=== PATIENT | female | born 1970 | race Caucasian/White ===

== ENCOUNTER 2016-10-03 18:08 | Emergency (ER) | payer MEDICAID ==
[2016-10-03 18:22] VITALS: BP 124/61; PULSE 98; RESP 20; TEMP 98.6; O2SAT 98
--- NOTE | 2016-10-03 19:24 | ED PDOC ---
HPI: CCC, URI, Sore Throat Time Seen by Provider: 10/03/16 19:22 Chief Complaint (Nursing): Chest Pain Chief Complaint (Provider): sore thoart History Per: Patient History/Exam Limitations: no limitations Have you had recent travel within the past 21 days to any of the following countries: [place], [place], [place] or [place]?: No Associated Symptoms: Sore Throat. denies: Fever, Chills, Cough, Sputum Past Medical History Reviewed: Historical Data, Nursing Documentation, Vital Signs Vital Signs: Last Vital Signs Temp 98.6 F 10/03/16 18:19 Pulse 98 H 10/03/16 18:19 Resp 20 10/03/16 18:19 BP 124/61 10/03/16 18:19 Pulse Ox 98 10/03/16 18:19 - Medical History PMH: Anxiety, Diabetes, HIV Denies: Bipolar Disorder (denies), Chronic Kidney Disease - Surgical History Surgical History: (3) - Family History Family History: States: Unknown Family Hx - Home Medications Home Medications: Ambulatory Orders Medication Instructions Recorded Ibuprofen 600 mg PO Q6 PRN #16 tab 01/24/14 Ibuprofen [Motrin] 600 mg PO Q6 PRN #20 tab 01/24/14 diaZEpam [Valium] 5 mg PO BID PRN #10 tab 01/24/14 Albuterol HFA [Ventolin HFA 90 2 puff IH [id number] PRN #0 puff 04/29/14 mcg/actuation (8 g)] Azithromycin [Zithromax Z-Lior] 250 mg PO DAILY #6 tab 04/29/14 Codeine Phosphate/Promethazi 5 ml PO Q6 PRN #60 ml 04/29/14 [Promethazine with Codeine 10 mg/5 ml-6.25 mg/] Naproxen [Naprosyn] 500 mg PO Q12H #20 tab 12/30/15 traMADol [Ultram] 50 mg PO Q8 #10 tab 12/30/15 Ibuprofen [Motrin] 600 mg PO Q6 #20 tab 01/20/16 oxyCODONE/Acetaminophen [Percocet 1 ea PO Q6 PRN #5 tab 01/20/16 5/325 mg Tab] Azithromycin [Zithromax] 250 mg PO DAILY #6 tab 10/03/16 Pseudoephedrine [Sudafed Tab] 30 mg PO BID #10 tab 10/03/16 - Allergies Allergies/Adverse Reactions: Allergies Allergy/AdvReac Type Severity Reaction Status Date / Time No Known Allergies Allergy Verified 01/23/14 22:34 Review of Systems ROS Statement: Except As Marked, All Systems Reviewed And Found Negative ENT: Positive for: Throat Pain, Throat Swelling Respiratory: Negative for: Cough, SOB with Exertion, Pleuritic Pain, Sputum Physical Exam - Reviewed Nursing Documentation Reviewed: Yes Vital Signs Reviewed: Yes - Physical Exam Appears: Positive for: Well, Non-toxic, No Acute Distress Head Exam: Positive for: ATRAUMATIC, NORMAL INSPECTION, NORMOCEPHALIC Skin: Positive for: Normal Color, Warm, DRY Eye Exam: Positive for: EOMI, Normal appearance, PERRL ENT: Positive for: Tonsillar Exudate, Tonsillar Swelling Neck: Positive for: Normal, Painless ROM Cardiovascular/Chest: Positive for: Regular Rate, Rhythm Respiratory: Positive for: CNT, Normal Breath Sounds Neurologic/Psych: Positive for: Alert, Oriented - ECG O2 Sat by Pulse Oximetry: 98 Medical Decision Making Medical Decision Making: Pt is only requesting abx tx for sore throat. pt admits she si HIV (+) and has not been taking her medication x 3 months. Disposition - Clinical Impression Clinical Impression: Pharyngitis - Patient ED Disposition Is Patient to be Admitted: No Counseled Patient/Family Regarding: Studies Performed, Diagnosis, Need For Followup, Rx Given - Disposition Disposition: Routine/Home Disposition Time: 19:26 Condition: STABLE Prescriptions: Azithromycin [Zithromax] 250 mg PO DAILY #6 tab Pseudoephedrine [Sudafed Tab] 30 mg PO BID #10 tab Instructions: Pharyngitis (ED)
--- NOTE | 2016-10-06 09:33 | CARD ---
APPROVED REPORT EKG Measurement Heart [id number] <Conclusion> Normal sinus rhythm Normal ECG
== END 2016-10-03 19:32 | disposition home or self-care (01) ==
LOC: H.ER 18:08
DX: J02.9 Acute pharyngitis, unspecified (principal); E11.9 Type 2 diabetes mellitus without complications; F41.9 Anxiety disorder, unspecified; N18.9 Chronic kidney disease, unspecified

== ENCOUNTER 2016-10-10 10:59 | Emergency (ER) | payer MEDICAID ==
[2016-10-10 11:12] VITALS: BMI 30.7
[2016-10-10 11:13] VITALS: BP 99/68; PULSE 97; RESP 19; TEMP 99.6; O2SAT 99
--- NOTE | 2016-10-10 11:54 | ED PDOC ---
HPI: CCC, URI, Sore Throat Time Seen by Provider: 10/10/16 11:07 Chief Complaint (Nursing): ENT Problem Chief Complaint (Provider): ear ache History Per: Patient Additional Complaint(s): pt w/ hx uncontrolled HIV, DM c/o persistant L earache after URI sx and sore throat x one week. no fever, cp, sob, abd pain. no tinnitus, vertigo. Past Medical History Reviewed: Historical Data, Nursing Documentation, Vital Signs Vital Signs: Last Vital Signs Temp 99.6 F 10/10/16 11:12 Pulse 97 H 10/10/16 11:12 Resp 19 10/10/16 11:12 BP 99/68 L 10/10/16 11:12 Pulse Ox 99 10/10/16 11:12 - Medical History PMH: Anxiety, Diabetes (improved w/ lap band), HIV (unmedicated x 10 months) Denies: Bipolar Disorder (denies), Chronic Kidney Disease - Surgical History Surgical History: Cholecystectomy, (3) - Family History Family History: States: No Known Family Hx - Social History Current smoker - smoking cessation education provided: No Alcohol: None Drugs: Denies - Home Medications Home Medications: Ambulatory Orders Medication Instructions Recorded Amoxicillin/Clavulanate [Augmentin 1 tab PO BID #20 tab 10/10/16 875 MG-125 MG] Ibuprofen [Motrin Tab] 800 mg PO Q8 #20 tab 10/10/16 - Allergies Allergies/Adverse Reactions: Allergies Allergy/AdvReac Type Severity Reaction Status Date / Time No Known Allergies Allergy Verified 01/23/14 22:34 Review of Systems ROS Statement: Except As Marked, All Systems Reviewed And Found Negative ENT: Positive for: Ear Pain. Negative for: Ear Discharge Physical Exam - Reviewed Nursing Documentation Reviewed: Yes Vital Signs Reviewed: Yes - Physical Exam Appears: Positive for: Well, Non-toxic, No Acute Distress Skin: Positive for: Normal Color, Warm, DRY ENT: Positive for: TM Is/Are (L TM injected. R TM wnl. no mastoid tenderness. ). Negative for: Pharyngeal Erythema, Tonsillar Exudate, Tonsillar Swelling Neck: Positive for: Normal, Painless ROM Cardiovascular/Chest: Positive for: Regular Rate, Rhythm Respiratory: Positive for: CNT, Normal Breath Sounds Neurologic/Psych: Positive for: Alert, Oriented - ECG O2 Sat by Pulse Oximetry: 99 Medical Decision Making Medical Decision Making: no improvement with zpack given. will give augmentin and refer to clinic for recheck and further care. Disposition - Clinical Impression Clinical Impression: Otitis media - Patient ED Disposition Is Patient to be Admitted: No - Disposition Referrals: [facility] [Outside] Franck Cash MD [Staff Provider] - Disposition: Routine/Home Disposition Time: 11:57 Condition: GOOD Prescriptions: Amoxicillin/Clavulanate [Augmentin 875 MG-125 MG] 1 tab PO BID #20 tab Ibuprofen [Motrin Tab] 800 mg PO Q8 #20 tab Instructions: Otitis Media (ED) Forms: [employer] ED School/Work Excuse
== END 2016-10-10 12:19 | disposition home or self-care (01) ==
LOC: H.ER 10:59
DX: H66.92 Otitis media, unspecified, left ear (principal)

== ENCOUNTER 2016-10-18 11:01 | Emergency (ER) | payer MEDICAID ==
[2016-10-18 11:01] VITALS: BMI 30.7
--- NOTE | 2016-10-18 11:37 | ED PDOC ---
Lower Extremity Pain/Injury Time Seen by Provider: 10/18/16 11:26 Chief Complaint (Nursing): Lower Extremity Problem/Injury History Per: Patient Onset/Duration Of Symptoms: Days (2) Current Symptoms Are (Timing): Still Present Severity: Mild Pain Scale Rating Of: 2 Additional Complaint(s): Right knee pain since last night. No new trauam. Has pain intermittenly. Past Medical History Vital Signs: Last Vital Signs Temp 98.4 F 10/18/16 11:13 Pulse 93 H 10/18/16 11:13 Resp 18 10/18/16 11:13 BP 105/62 10/18/16 11:13 Pulse Ox 100 10/18/16 11:13 - Medical History PMH: Anxiety, Diabetes (improved w/ lap band), HIV (unmedicated x 10 months) Denies: Bipolar Disorder (denies), Chronic Kidney Disease - Surgical History Surgical History: Cholecystectomy, (3) - Family History Family History: States: Unknown Family Hx - Home Medications Home Medications: Ambulatory Orders Medication Instructions Recorded Amoxicillin/Clavulanate [Augmentin 1 tab PO BID #20 tab 10/10/16 875 MG-125 MG] Ibuprofen [Motrin Tab] 800 mg PO Q8 #20 tab 10/10/16 Naproxen [Naprosyn] 500 mg PO Q12H #20 tab 10/18/16 traMADol [Ultram] 50 mg PO Q8 #10 tab 10/18/16 - Allergies Allergies/Adverse Reactions: Allergies Allergy/AdvReac Type Severity Reaction Status Date / Time No Known Allergies Allergy Verified 01/23/14 22:34 Review of Systems Constitutional: Negative for: Fever Musculoskeletal: Positive for: Other (knee pain) Neurological: Negative for: Weakness, Numbness Physical Exam - Physical Exam Appears: Positive for: Non-toxic, No Acute Distress Skin: Positive for: Normal Color, Warm, DRY Extremity: Positive for: Normal ROM. Negative for: Tenderness, Deformity, Swelling - ECG O2 Sat by Pulse Oximetry: 100 Disposition - Clinical Impression Clinical Impression: Knee pain, chronic - Patient ED Disposition Is Patient to be Admitted: No Counseled Patient/Family Regarding: Diagnosis, Need For Followup, Rx Given - Disposition Referrals: [facility] [Outside] Disposition: Routine/Home Disposition Time: 11:37 Condition: FAIR Prescriptions: Naproxen [Naprosyn] 500 mg PO Q12H #20 tab traMADol [Ultram] 50 mg PO Q8 #10 tab Instructions: Knee Pain (ED)
[2016-10-18 11:57] VITALS: BP 128/78; PULSE 78; RESP 20; TEMP 97.6; O2SAT 98
== END 2016-10-18 12:58 | disposition home or self-care (01) ==
LOC: H.ER 11:01
DX: M25.561 Pain in right knee (principal)

== ENCOUNTER 2016-10-29 07:26 | Emergency (ER) | payer MEDICAID ==
[2016-10-29 07:35] VITALS: BMI 29.0
[2016-10-29 07:36] VITALS: TEMP 98.5
[2016-10-29] MEDS ORDERED: Oxycodone/Acetaminophen 5/325 mg Tab PO ONE (08:41)
[2016-10-29] MEDS ORDERED: Oxycodone/Acetaminophen 5/325 mg Tab ONE (08:55)
--- NOTE | 2016-10-29 09:11 | ED PDOC ---
Upper Extremity Pain/Injury Time Seen by Provider: 10/29/16 07:45 Chief Complaint (Nursing): Upper Extremity Problem/Injury Chief Complaint (Provider): Left arm pain History Per: Patient History/Exam Limitations: no limitations Onset/Duration Of Symptoms: Days (1) Current Symptoms Are (Timing): Still Present Quality: "Pain" Severity: Moderate Exacerbating Factor(s): Strenuous Use Of Affected Area Additional History Per: Patient Additional Complaint(s): The pt is a 46yo female, PMHx of HIV, DM, 3x C-sections, presents to ED for evaluation of left arm pain since this morning. Pt reports the pain is localized in her left forearm and denies any injury or trauma to the area. She reports decreased ROM due to pain; pt denies sleeping on her arm or any other injuries. States she took Tramadol for pain with no relief. Pt offers no additional medical complaints. Past Medical History Reviewed: Historical Data, Nursing Documentation, Vital Signs Vital Signs: Last Vital Signs Temp 98.5 F 10/29/16 07:35 Pulse 99 H 10/29/16 07:35 Resp 19 10/29/16 07:35 BP 115/66 10/29/16 07:35 Pulse Ox 98 10/29/16 07:35 - Medical History PMH: Anxiety, Diabetes (improved w/ lap band), HIV (unmedicated x 10 months) Denies: Bipolar Disorder (denies), Chronic Kidney Disease - Surgical History Surgical History: Cholecystectomy, (3) - Family History Family History: States: Unknown Family Hx - Home Medications Home Medications: Ambulatory Orders Medication Instructions Recorded Amoxicillin/Clavulanate [Augmentin 1 tab PO BID #20 tab 10/10/16 875 MG-125 MG] Ibuprofen [Motrin Tab] 800 mg PO Q8 #20 tab 10/10/16 Naproxen [Naprosyn] 500 mg PO Q12H #20 tab 10/18/16 traMADol [Ultram] 50 mg PO Q8 #10 tab 10/18/16 Ibuprofen [Motrin] 600 mg PO Q6H PRN #20 tab 10/29/16 - Allergies Allergies/Adverse Reactions: Allergies Allergy/AdvReac Type Severity Reaction Status Date / Time No Known Allergies Allergy Verified 10/29/16 07:56 Review of Systems ROS Statement: Except As Marked, All Systems Reviewed And Found Negative Musculoskeletal: Positive for: Arm Pain (left upper arm) Neurological: Negative for: Weakness, Numbness Physical Exam - Reviewed Nursing Documentation Reviewed: Yes Vital Signs Reviewed: Yes - Physical Exam Appears: Positive for: Well, Non-toxic, No Acute Distress Head Exam: Positive for: ATRAUMATIC, NORMAL INSPECTION, NORMOCEPHALIC Skin: Positive for: Normal Color, Warm, DRY Eye Exam: Positive for: Normal appearance Neck: Positive for: Normal, Supple Cardiovascular/Chest: Positive for: Regular Rate, Rhythm Respiratory: Positive for: Normal Breath Sounds. Negative for: Respiratory Distress Extremity: Positive for: Tenderness (pain and guarding of left upper arm), Capillary Refill (less than 2 sec. neurovascular intact). Negative for: Normal ROM (decreased ROM due to pain), Deformity, Swelling Neurologic/Psych: Positive for: Alert, Oriented - ECG O2 Sat by Pulse Oximetry: 98 (RA) Pulse Ox Interpretation: Normal Medical Decision Making Medical Decision Making: Time: 0815 Impression: Left upper arm pain, atraunmtic Plan: -- XR left humerus -- XR left shoulder -- Motrin 600 mg PO -- Percocet 1 tab PO -- Reassess Time: 1030 Left humerus xR impression: No acute fracture or bone destruction. Left shoulder XR impression: Soft tissue calcification lateral to the humeral head most compatible with calcific tendinitis. Pt to be given sling for left arm and d/c home. discussed results with pt an dneed for outpt orthopedics Scribe Attestation: Documented by Jaquelin Ely acting as a scribe for Rebeca Ravi MD. Provider Attestation: All medical record entries made by the Scribe were at my direction and personally dictated by me. I have reviewed the chart and agree that the record accurately reflects my personal performance of the history, physical exam, medical decision making, and the department course for this patient. I have also personally directed, reviewed, and agree with the discharge instructions and disposition. Disposition - Clinical Impression Clinical Impression: Calcific tendonitis - Patient ED Disposition Is Patient to be Admitted: No Counseled Patient/Family Regarding: Studies Performed, Diagnosis, Need For Followup - Disposition Referrals: Harsha Weldon MD [Medical Doctor] - Disposition: Routine/Home Disposition Time: 10:00 Condition: IMPROVED Additional Instructions: follow up with your orthopedics use sling and motrin for pain return to the ED with any worsneing or concerning symptoms Prescriptions: Ibuprofen [Motrin] 600 mg PO Q6H PRN #20 tab PRN Reason: Pain, Moderate (4-7) Instructions: Calcific Tendinitis (ED)
--- NOTE | 2016-10-29 10:13 | RAD ---
PROCEDURE: Radiographs of the left humerus. HISTORY: Pain COMPARISON: None. FINDINGS: BONES: Bone alignment and mineralization are normal. There is no acute fracture or bone destruction. SOFT TISSUES: Normal. OTHER FINDINGS: None. IMPRESSION: No acute fracture or bone destruction.
--- NOTE | 2016-10-29 10:15 | RAD ---
PROCEDURE: Radiographs of the Left Shoulder HISTORY: Atraumatic pain COMPARISON: No prior. FINDINGS: BONES: Bone alignment and mineralization are normal. There is no acute fracture or bone destruction. JOINTS: Mild degenerative osteoarthrosis in the acromioclavicular joint. The glenohumeral joint is normal. SOFT TISSUES: There are lobular calcifications lateral to the humeral head. OTHER FINDINGS: None. IMPRESSION: No acute fracture or dislocation. Soft tissue calcification lateral to the humeral head most compatible with calcific tendinitis.
[2016-10-29 11:07] VITALS: BP 116/72; PULSE 78; RESP 16
[2016-10-31 21:54] VITALS: O2SAT 98
== END 2016-10-29 11:07 | disposition home or self-care (01) ==
LOC: H.ER 07:26
DX: M75.32 Calcific tendinitis of left shoulder (principal); E11.22 Type 2 diabetes mellitus with diabetic chronic kidney disease; F41.9 Anxiety disorder, unspecified

== ENCOUNTER 2016-11-22 10:51 | Inpatient (IN) | payer MEDICAID ==
[2016-11-22 10:59] VITALS: BMI 28.2
[2016-11-22 12:15] LABS: HEMOGLOBIN 12.2 g/dL (12.0-16.0); MEAN CELL VOLUME 79.2 fl (81.0-99.0); MEAN CORPUSCULAR HGB CONC 32.7 g/dL (33.0-37.0); RBC 4.69 Mil/uL (3.80-5.20); RED CELL DISTRIBUTION WIDTH 16.1 % (11.5-14.5)
[2016-11-22 12:29] LABS: ALBUMIN 4.6 g/dL (3.5-5.0); ALT/SGPT 32 U/L (9-52); AST/SGOT 42 U/L (14-36); BLOOD UREA NITROGEN 14 mg/dl (7-17); CALCIUM 9.4 mg/dL (8.4-10.2); GFR AFRICAN-AMERICAN > 60; GFR NON-AFRICAN AMERICAN > 60
[2016-11-22 12:30] LABS: ALB/GLOB RATIO 0.8 (1.0-2.1)
--- NOTE | 2016-11-22 13:14 | ED PDOC ---
HPI: Psych/Substance Abuse Time Seen by Provider: 11/22/16 10:52 Chief Complaint (Nursing): Psychiatric Evaluation Chief Complaint (Provider): SI, states she plans on jumping off bridge History Per: Patient History/Exam Limitations: no limitations Additional Complaint(s): Pt states she feels more upset because he younger brother, whom she helped raise because her parents , has not been calling her. Pt cooperative in ER. Past Medical History Reviewed: Historical Data, Nursing Documentation, Vital Signs Vital Signs: Last Vital Signs Temp 98.2 F 11/22/16 10:59 Pulse 105 H 11/22/16 10:59 Resp 17 11/22/16 10:59 BP 120/70 11/22/16 10:59 Pulse Ox 97 11/22/16 10:59 - Medical History PMH: Anxiety, Diabetes (improved w/ lap band), HIV (unmedicated x 10 months) Denies: Bipolar Disorder (denies), Chronic Kidney Disease - Surgical History Surgical History: Cholecystectomy, (3) - Family History Family History: States: Unknown Family Hx - Living Arrangements Living Arrangements: With Family - Social History Current smoker - smoking cessation education provided: No Alcohol: Occasional Drugs: Denies - Home Medications Home Medications: Ambulatory Orders Medication Instructions Recorded Amoxicillin/Clavulanate [Augmentin 1 tab PO BID #20 tab 10/10/16 875 MG-125 MG] Ibuprofen [Motrin Tab] 800 mg PO Q8 #20 tab 10/10/16 Naproxen [Naprosyn] 500 mg PO Q12H #20 tab 10/18/16 traMADol [Ultram] 50 mg PO Q8 #10 tab 10/18/16 Ibuprofen [Motrin] 600 mg PO Q6H PRN #20 tab 10/29/16 - Allergies Allergies/Adverse Reactions: Allergies Allergy/AdvReac Type Severity Reaction Status Date / Time No Known Allergies Allergy Verified 10/29/16 07:56 Review of Systems ROS Statement: Except As Marked, All Systems Reviewed And Found Negative Constitutional: Negative for: Fever Respiratory: Negative for: Cough Gastrointestinal: Negative for: Abdominal Pain Psych: Positive for: Depression, Suicidal ideation. Negative for: Anxiety Physical Exam - Reviewed Nursing Documentation Reviewed: Yes Vital Signs Reviewed: Yes - Physical Exam Appears: Positive for: Well, Non-toxic, No Acute Distress Head Exam: Positive for: ATRAUMATIC, NORMAL INSPECTION, NORMOCEPHALIC Skin: Positive for: Normal Color, Warm, DRY Eye Exam: Positive for: Normal appearance ENT: Positive for: Normal ENT Inspection Neck: Positive for: Normal, Painless ROM Cardiovascular/Chest: Positive for: Regular Rate, Rhythm Respiratory: Positive for: Normal Breath Sounds. Negative for: Accessory Muscle Use, Respiratory Distress Gastrointestinal/Abdominal: Positive for: Normal Exam, Bowel Sounds, Soft Back: Positive for: Normal Inspection Extremity: Positive for: Normal ROM Neurologic/Psych: Positive for: Alert, Oriented - Laboratory Results Result Diagrams: 11/22/16 12:03 11/22/16 12:03 - ECG O2 Sat by Pulse Oximetry: 97
[2016-11-22 14:46] LABS: SQUAMOUS EPITHIAL 5 /hpf (0-5); URINE BILIRUBIN NEGATIVE (NEGATIVE); URINE BLOOD SMALL (NEGATIVE); URINE CLARITY CLOUDY (Clear); URINE COLOR YELLOW (YELLOW); URINE GLUCOSE (UA) NEG (Normal); URINE HYALINE CAST 0-2 /hpf (0-2); URINE LEUKOCYTE ESTERASE NEG Leu/uL (Negative); URINE NITRATE NEGATIVE (NEGATIVE); URINE PROTEIN 30 mg/dL (NEGATIVE); URINE UROBILINOGEN 0.2-1.0 mg/dL (0.2-1.0)
[2016-11-22 15:01] LABS: BARBITURATES, UR NEGATIVE (NEGATIVE); BENZODIAZEPINES, UR NEGATIVE (NEGATIVE); OPIATES, UR NEGATIVE (NEGATIVE); PHENCYCLIDINE, UR NEGATIVE (NEGATIVE)
[2016-11-22 15:29] VITALS: O2SAT 99
--- NOTE | 2016-11-22 16:11 | RAD ---
HISTORY: admission, psychiatry COMPARISON: No prior. FINDINGS: LUNGS: No active pulmonary disease. PLEURA: No significant pleural effusion identified, no pneumothorax apparent. CARDIOVASCULAR: Normal. OSSEOUS STRUCTURES: No significant abnormalities. VISUALIZED UPPER ABDOMEN: Normal. OTHER FINDINGS: None. IMPRESSION: No active disease.
[2016-11-22] MEDS ORDERED: DiphenhydrAMINE 50 mg/ml Inj IM PRN (21:32)
[2016-11-22] MEDS ORDERED: Magnesium Hydroxide Susp 30 ml UD PO PRN (21:33)
[2016-11-22] MEDS ORDERED: Bismuth Subsalicylate 262 mg Chew Tab PO PRN (21:34)
--- NOTE | 2016-11-22 22:25 | CARD ---
APPROVED REPORT EKG Measurement Heart [id number] [id number] <Conclusion> Normal sinus rhythm Prolonged QT Abnormal ECG
--- NOTE | 2016-11-23 10:44 | PCM.PSYCH ---
Initial Psychiatric Evaluation - Initial Psychiatric Evaluation Type of Admission: Voluntary Legal Status: Capacity Chief Complaint (in patient's own words): I'M DEPRESSED Patient's Reaction to Hospitalization: 46 Y/O FEMALE WITH COMPLAINT OF SEVERE DEPRESSION AND SUICIDAL IDEATIONS TO JUMP OFF AN OVERPASS. PT REPORTED THAT SHE LOST HER APARTMENT IN [place]. SHE ALSO REPORTED THAT SHE LOST ALL OF HER BENEFITS AND HAS NOT BEEN ABLE TO GET HER TREATMENT FOR HER HIV OR HER DEPRESSION. SHE REPORTED THAT SHE RAISED HER SIBLINGS AND THREE CHILDREN BY HERSELF AND NOW THAT SHE NEEDS HELP NO ONE IS THERE FOR HER. SHE REPORTED THAT THE DEPRESSION HAS GOTTEN SO BAD THAT SHE IS CONSTANTLY THINKING ABOUT SUICIDE. NO AH/VH/DELUSIONS/ PARANOIA. +COCAINE USE. +XANAX ABUSE. PMHX: HIV (NOT CURRENTLY ON HAART) ALL: NKDA PPHX: PT WAS PREVIOUSLY SEEN AT THE [facility]. PT RECENTLY HAD AN APPOINTMENT ON THAT WAS CANCELLED DUE TO HER MEDICAID BEING TERMINATED. PT WAS PREVIOUSLY PRESCRIBED ZOLOFT AND TRAZADONE. 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 +COCAINE AND ALCOHOL USE. SMOKE 10 CIG/DAY, DECLINED NICOTINE REPLACEMENT. FHX: MOTHER AND BROTHER W/ SCHIZOPHRENIA; SON BIPOLAR; BOTH PARENTS IVDU Current Medications: Active Medications Generic Name Dose Route Start Last Admin Trade Name Freq PRN Reason Stop Dose Admin Bismuth Subsalicylate 262 mg 11/22/16 21:34 Pepto Bismol PO Q1 PRN Diarrhea Diphenhydramine HCl 50 mg 11/22/16 21:30 Benadryl PO Q6 PRN eps Diphenhydramine HCl 50 mg 11/22/16 21:32 Benadryl IM Q6 PRN servere eps\ Haloperidol 5 mg 11/22/16 21:18 Haldol PO Q6H PRN psychosis/agitiation Haloperidol Lactate 5 mg 11/22/16 21:23 Haldol IM Q6 PRN severe agitation/psychosis Lorazepam 2 mg 11/22/16 21:27 Ativan PO Q6 PRN Anxiety Lorazepam 2 mg 11/22/16 21:29 Ativan IM Q6 PRN severe anxiety Magnesium Hydroxide 30 ml 11/22/16 21:33 Milk Of Magnesia PO DAILY PRN Constipation Trazodone HCl 50 mg 11/22/16 21:33 Desyrel PO HS PRN Insomnia Past Psychiatric History - Past Psychiatric History Pertinent Medical Hx (Current Medical&Sleep Prob, Allergies): Allergies Allergy/AdvReac Type Severity Reaction Status Date / Time No Known Allergies Allergy Verified 10/29/16 07:56 Amoxicillin/Clavulanate [Augmentin 875 MG-125 MG] 1 tab PO BID #20 tab 10/10/16 Ibuprofen [Motrin Tab] 800 mg PO Q8 #20 tab 10/10/16 Naproxen [Naprosyn] 500 mg PO Q12H #20 tab 10/18/16 traMADol [Ultram] 50 mg PO Q8 #10 tab 10/18/16 Ibuprofen [Motrin] 600 mg PO Q6H PRN #20 tab 10/29/16 Review of Systems - Review of Systems All systems: reviewed and no additional remarkable complaints except - Psychiatric Psychiatric: Abnormal Sleep Pattern, Anhedonia, Anxiety, Depression, Difficulty Concentrating, Mood Swings, Suicidal Ideation Mental Status Examination - Personal Presentation Personal Presentation: Looks stated age - Affect Affect: Depressed - Motor Activity Motor Activity: Calm - Reliability in Providing Information Reliability in Providing Information: Fair - Speech Speech: Organized - Mood Mood: Depressed - Formal Thought Process Formal Thought Process: No Impairment - Obsessions/Compulsions Obsessions: No Compulsions: No - Cognitive Functions Orientation: Person, Place, Situation, Time Sensorium: Alert Attention/Concentration: Attentive Estimate of Intelligence: Average Judgement: Intact, as evidence by: Insight regarding need for hospitalization Memory: Recent intact, as evidence by: Ability to recall events of the day, Remote intact, as evidenced by: Abilit to recall sig. life events, Remote intact , as evidenced by: Ability to recall historical events - Risk Risk: Suicidal, Diminished functioning - Strength & Assets Inventory Strength & Assets Inventory: Cooperative - Limitations Limitations: Other (Homelessness, Poverty) DSM 5 DX - DSM 5 DSM 5 Diagnosis: Major Depressive Disorder; Cocaine abuse, benzodiazepine abuse - Recommended/Plan of Treatment Treatment Recommendations and Plan of Treatment: Major Depressive Disorder; Cocaine abuse, benzodiazepine abuse -Admit to psychiatry -Start Lexapro 5 mg PO Daily, r/b/se reviewed -Hospitalist consult- patient has HIV, non-compliant with tx due to lack of insurance -Individual and group therapy -Disposition planning -No 1:1 indicated at this time -Psychoeducation re: substance abuse and mental health Projected ELOS: 3-5 days Discharge Plan and Discharge Criteria: Discharge when psychiatrically stable - Smoking Cessation Smoking Cessation Initiated: No Reason for not providing: Patient declined
--- NOTE | 2016-11-23 22:04 | CP.PCM.CON ---
History of Present Illness - History of Present Illness History of Present Illness: 46 yo F with history of substance abuse, HIV, depression, obesity, prediabetes admitted to psych unit due to suicidal ideations (jump off an overpass). Patient states has been dealing with depression for a long time however since January patient started becoming suicidal and wanting to . One of those ways was stopping her HAART treatment. Patient has not been taking medication since then. Patient was seen by PMD (Dr. Ibrahim) 1 month ago to restart treatment. Labs were drawn and medication was refilled. Patient was able to get one month of medication, however her insurance was dropped due to paperwork she had not submitted. Patient is now unable to acquire medications. Patient denies complications/AIDS defining illnesses in the past. Patient states she feels well today. Denies fever, chills, cough, abdominal pain, chest pain, sob, changes in bowel habits, changes in urinary habits. No headaches, dizziness, or change of vision. PMD: Dr. Ibrahim PMHX: Substance abuse, HIV (Last CD4 - 525, VL- 37,000 [October 2016]), depression , obesity, prediabetes Allergies: NKDA Meds: None (previously on Truvada, Norvir, Prezista) Family hx: Mother and brother w/ schizophrenia. Son bipolar. Both parents IV drug users (heroin), from complications of AIDS. Surgical hx: none Social hx: Homeless, Occasional cocaine user, EtOH on weekends (10 beers each occasion), 1/2ppd since 14 years old. Abuse of Xanax in past. Denies IVDU. Review of Systems - Review of Systems All systems: reviewed and no additional remarkable complaints except (mentioned in HPI) Past Patient History - Infectious Disease Hx of Infectious Diseases: None - Past Social History Alcohol: Occasional Drugs: Denies - CARDIAC Hx Cardiac Disorders: No - PULMONARY Hx Respiratory Disorders: No Hx Tuberculosis: No - NEUROLOGICAL Hx Neurological Disorder: No HX Cerebrovascular Accident: No Hx Seizures: No - HEENT Hx HEENT Problems: No - RENAL Hx Chronic Kidney Disease: No - ENDOCRINE/METABOLIC Hx Endocrine Disorders: Yes Hx Diabetes Mellitus Type 2: Yes - HEMATOLOGICAL/ONCOLOGICAL Hx AIDS: Yes Hx Cancer: No Hx Human Immunodeficiency Virus (HIV): Yes (unmedicated x 10 months) - INTEGUMENTARY Hx Dermatological Problems: No - MUSCULOSKELETAL/RHEUMATOLOGICAL Hx Musculoskeletal Disorders: No Hx Falls: No - GASTROINTESTINAL Hx Gastrointestinal Disorders: No - GENITOURINARY/GYNECOLOGICAL Hx Genitourinary Disorders: No Hx Sexually Transmitted Disorders: No - PSYCHIATRIC Hx Depression: Yes Hx Substance Use: Yes (cocaome) - SURGICAL HISTORY Hx Surgeries: Yes Hx Section: Yes Hx Cholecystectomy: Yes - ANESTHESIA Hx Anesthesia: No Hx Malignant Hyperthermia: No Meds Allergies/Adverse Reactions: Allergies Allergy/AdvReac Type Severity Reaction Status Date / Time No Known Allergies Allergy Verified 10/29/16 07:56 - Medications Medications: Current Medications Bismuth Subsalicylate (Pepto Bismol) 262 mg PO Q1 PRN PRN Reason: Diarrhea Diphenhydramine HCl (Benadryl) 50 mg PO Q6 PRN PRN Reason: eps Diphenhydramine HCl (Benadryl) 50 mg IM Q6 PRN PRN Reason: servere eps\ Escitalopram Oxalate (Lexapro) 5 mg PO DAILY ZORAIDA Last Admin: 11/23/16 11:41 Dose: 5 mg Haloperidol (Haldol) 5 mg PO Q6H PRN PRN Reason: psychosis/agitiation Haloperidol Lactate (Haldol) 5 mg IM Q6 PRN PRN Reason: severe agitation/psychosis Lorazepam (Ativan) 2 mg PO Q6 PRN PRN Reason: Anxiety Lorazepam (Ativan) 2 mg IM Q6 PRN PRN Reason: severe anxiety Magnesium Hydroxide (Milk Of Magnesia) 30 ml PO DAILY PRN PRN Reason: Constipation Zolpidem Tartrate (Ambien) 5 mg PO HS PRN PRN Reason: Insomnia Last Admin: 11/23/16 21:32 Dose: 5 mg Physical Exam - Constitutional Appears: Well, Non-toxic, No Acute Distress - Head Exam Head Exam: ATRAUMATIC, NORMAL INSPECTION, NORMOCEPHALIC - Eye Exam Eye Exam: Normal appearance - Neck Exam Neck exam: Positive for: Normal Inspection - Respiratory Exam Respiratory Exam: Clear to Auscultation Bilateral, NORMAL BREATHING PATTERN - Cardiovascular Exam Cardiovascular Exam: REGULAR RHYTHM, RRR, +S1, +S2 - GI/Abdominal Exam GI & Abdominal Exam: Normal Bowel Sounds, Soft. absent: Tenderness - Extremities Exam Extremities exam: Positive for: normal inspection. Negative for: calf tenderness, pedal edema - Back Exam Back exam: NORMAL INSPECTION - Neurological Exam Neurological exam: Alert, Oriented x3 - Psychiatric Exam Psychiatric exam: Normal Affect, Normal Mood - Skin Skin Exam: Dry, Intact, Normal Color, Warm Results - Vital Signs Recent Vital Signs: Last Vital Signs Temp 96.6 F L 11/23/16 16:01 Pulse 65 11/23/16 16:01 Resp 20 11/23/16 16:01 BP 114/77 11/23/16 16:01 Pulse Ox 99 11/22/16 15:27 - Labs Result Diagrams: 11/22/16 12:03 11/22/16 12:03 Assessment & Plan (1) HIV, asymptomatic Status: Chronic (2) Substance abuse Status: Chronic (3) Obesity (BMI 30.0-34.9) Status: Chronic (4) Prediabetes Status: Chronic (5) Electrolyte abnormality Status: Acute (6) LFT elevation Status: Acute (7) Major depressive disorder Status: Acute - Assessment and Plan (Free Text) Assessment: 46 yo F with history of substance abuse, HIV, depression, obesity, prediabetes admitted to psych unit due to suicidal ideations (jump off an overpass) 2ndary to major depressive disorder. Noncompliant with HAART. Plan: (1) HIV, asymptomatic - Last CD4 - 525, VL- 37,000 [October 2016] - No medications x 1 week (took for 1 month, previous to that no meds x 9 months ) - Previously on Truvada, Norvir, Prezista - Patient will need case management/social work referral for continuation of treatment due to insurance issues - Will hold off starting medication due to possibility of mutations/resistance with continue stopping of medication - Asymptomatic at this time. (2) Substance abuse - H/o cocaine/xanax abuse - Current Smoker - Encouraged cessation (3) Obesity/Prediabetes - Reviewed eCw chart and labs - Last HgbA1c 10/2016: 6.1% - Lipids wnl 10/2016 - Encouraged lifestyle modifications - Diabetic/heart healthy diet (4) Electrolyte abnormality - Mild, asymptomatic - Repeat labs, monitor (5) LFT elevation - Mildly elevated compared to previous - Hep C negative 10/2016 - Repeat labs, monitor (6) Major depressive disorder - Manage as per psych
[2016-11-24 10:20] LABS: ALB/GLOB RATIO 0.8 (1.0-2.1); ALBUMIN 3.8 g/dL (3.5-5.0); ALT/SGPT 29 U/L (9-52); AST/SGOT 38 U/L (14-36); BLOOD UREA NITROGEN 9 mg/dl (7-17); GFR AFRICAN-AMERICAN > 60; GFR NON-AFRICAN AMERICAN > 60
--- NOTE | 2016-11-24 12:23 | PCM.PYCHPN ---
Psychiatric Progress Note - Psychiatric Progress Note Patient seen today, length of contact: Patient evaluated, case discussed with team, chart reviewed, 35 min Patient Chief Complaint: I'm feeling better Problems Identified/Issues Discussed: Patient reports that her mood is improving. She denies ideation to harm herself. Psychoeducation provided to the patient that her depressive may be worsened by ETOH and drug abuse. Patient is agreeable to discharge tomorrow with outpatient follow-up. She denies adverse effects to Lexapro. Medication Change: No Medical Record Reviewed: Yes Consults ordered or reviewed: Medicine consult appreciated Mental Status Examination - Cognitive Function Orientation: Person, Place, Situation, Time Memory: Intact Attention: WNL Concentration: WNL Association: WNL Fund of Knowledge: WNL - Mood Mood: Depressed (Improving) - Affect Affect: Broad - Speech Speech: Appropriate - Formal Thought Process Formal Thought Process: No Impairment Psychotic Thoughts and Behaviors: NO AH/VH/paranoia/delusions - Suicidal Ideation Suicidal Ideation: No - Homicidal Ideation Homicidal Ideation: No Goal/Treatment Plan - Goal/Treatment Plan Need for Continued Stay: Remain at risks for inpatient hospitalization, Discharge may exacerbated symptoms Progress Toward Problem(s) and Goals/Treatment Plan: Major Depressive Disorder; Cocaine abuse, benzodiazepine abuse -Continue Lexapro 5 mg PO Daily, r/b/se reviewed -Hospitalist consult appreciated -Individual and group therapy -Psychoeducation re: substance abuse and mental health -Likely discharge tomorrow Estimated Date of D/C: 11/25/16
[2016-11-24 16:43] VITALS: TEMP 97.7
[2016-11-25 06:11] VITALS: BP 101/68; PULSE 79; RESP 18
--- NOTE | 2016-11-25 08:54 | PCM.PYCHDC ---
Mental Status Examination - Mental Status Examination Orientation: Person, Place, Situation, Time Memory: Intact Mood: Neutral Affect: Broad Speech: Appropriate Attention: WNL Concentration: WNL Association: WNL Fund of Knowledge: WNL Formal Thought Process: No Impairment Description of patient's judgement and insight: Fair I/J Psychotic Thoughts and Behaviors: NO AH/VH/paranoia/delusions Suicidal Ideation: No Current Homicidal Ideation?: No Discharge Summary - Discharge Note Reason for Hospitalization: 46 Y/O FEMALE WITH COMPLAINT OF SEVERE DEPRESSION AND SUICIDAL IDEATIONS TO JUMP OFF AN OVERPASS. PT REPORTED THAT SHE LOST HER APARTMENT IN JUNE. SHE ALSO REPORTED THAT SHE LOST ALL OF HER BENEFITS AND HAS NOT BEEN ABLE TO GET HER TREATMENT FOR HER HIV OR HER DEPRESSION. SHE REPORTED THAT SHE RAISED HER SIBLINGS AND THREE CHILDREN BY HERSELF AND NOW THAT SHE NEEDS HELP NO ONE IS THERE FOR HER. SHE REPORTED THAT THE DEPRESSION HAS GOTTEN SO BAD THAT SHE IS CONSTANTLY THINKING ABOUT SUICIDE. NO AH/VH/DELUSIONS/ PARANOIA. +COCAINE USE. +XANAX ABUSE. PMHX: HIV (NOT CURRENTLY ON HAART) ALL: NKDA PPHX: PT WAS PREVIOUSLY SEEN AT THE [facility]. PT RECENTLY HAD AN APPOINTMENT ON THAT WAS CANCELLED DUE TO HER MEDICAID BEING TERMINATED. PT WAS PREVIOUSLY PRESCRIBED ZOLOFT AND TRAZADONE. 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 +COCAINE AND ALCOHOL USE. SMOKE 10 CIG/DAY, DECLINED NICOTINE REPLACEMENT. FHX: MOTHER AND BROTHER W/ SCHIZOPHRENIA; SON BIPOLAR; BOTH PARENTS IVDU Laboratory Data: Abnormal Lab Results 11/24/16 09:30 Sodium 139 Potassium 4.1 Chloride 103 Carbon Dioxide 30 Anion Gap 9 L BUN 9 Creatinine 0.7 Est GFR ( Amer) > 60 Est GFR (Non-Af Amer) > 60 Random Glucose 86 Calcium 9.0 Total Bilirubin 0.4 AST 38 H ALT 29 Alkaline Phosphatase 58 Total Protein 8.6 H Albumin 3.8 Globulin 4.8 H Albumin/Globulin Ratio 0.8 L Consultations:: List each consultation separately and include: 1. Reason for request. 2. Findings. 3. Follow-up Consultations: Medicine consult appreciated Summary of Hospital Course include:: 1. Description of specific treatment plan utilized for patients during their course of treatmen. 2. Summarize the time- course for resolution of acute symptoms and/or regressed behaviors. 3. Describe issues identified and worked on during hospitalization. 4. Describe medication utilized. 5. Describe medical problems identified and treated. 6. Reassessment of suicide risk Summary of Hospital Course: Patient admitted to the psychiatry unit. Individual and group therapy provided. Patient was stabilized on Lexapro. She no longer reports depressed mood or suicidal ideation. - Final Diagnosis (DSM 5) Condition upon Discharge: GOOD DSM 5: Major Depressive Disorder; Cocaine Abuse Disposition: HOME/ ROUTINE Follow-up Treatment Plan: Major Depressive Disorder; Cocaine abuse, Benzodiazepine abuse -Continue Lexapro 5 mg PO Daily, r/b/se reviewed -Hospitalist consult appreciated -Individual and group therapy -Psychoeducation re: substance abuse and mental health -Discharge with outpatient psychiatric and medical follow-up Discharge >35 min Prescriptions/Medication Reconciliation: Escitalopram [Lexapro] 5 mg PO DAILY #30 tab - Smoking Cessation Smoking Cessation Medication prescribed: No Reason for not providing: Not indicated - Antipsychotic Medications Pt discharged on 2 or more routine antipsychotic medications: No
== END 2016-11-25 13:20 | disposition home or self-care (01) | DRG 426 ==
LOC: H.ER 10:51 → H.ERHOLD 14:20 → H.STEP 15:35
PROVIDERS: ADMIT Psychiatry & Neurology Psychiatry; ATTEND Psychiatry & Neurology Psychiatry
PROC: GZHZZZZ Group Psychotherapy (ICD-10-PCS; principal; 2016-11-22)
PROC: GZ58ZZZ Individual Psychotherapy, Cognitive-Behavioral (ICD-10-PCS; 2016-11-22)
DX: F32.9 Major depressive disorder, single episode, unspecified (principal); R45.851 Suicidal ideations; F14.10 Cocaine abuse, uncomplicated; F13.10 Sedative, hypnotic or anxiolytic abuse, uncomplicated; Z91.14 Patient's other noncompliance with medication regimen; Z21 Asymptomatic human immunodeficiency virus [HIV] infection status; F41.9 Anxiety disorder, unspecified; R73.03 Prediabetes; E66.9 Obesity, unspecified; Z68.28 Body mass index [BMI] 28.0-28.9, adult; F17.210 Nicotine dependence, cigarettes, uncomplicated; Z59.0 Homelessness; Z81.8 Family history of other mental and behavioral disorders

== ENCOUNTER 2016-12-27 12:08 | Emergency (ER) | payer MEDICAID ==
[2016-12-27 12:14] VITALS: BP 110/64; PULSE 86; TEMP 98; O2SAT 99; BMI 27.7
--- NOTE | 2016-12-27 12:21 | ED PDOC ---
Lower Extremity Pain/Injury Time Seen by Provider: 12/27/16 12:11 Chief Complaint (Provider): Right knee pain History Per: Patient History/Exam Limitations: no limitations Onset/Duration Of Symptoms: Days (x2) Current Symptoms Are (Timing): Still Present Additional Complaint(s): Marialuisa Buckner is a 46 year old female with previous medical history of chronic right knee pain who presents to the emergency department with a complaint of worsening right knee pain exasperated with walking ongoing for 2 days. Denied any fever, chills, injury, trauma or taking pain medication for relief of symptoms. Patient stated she was walking more than usual yesterday when pain began and has been to physical therapy in the past. PMD: none provided Past Medical History Reviewed: Historical Data, Nursing Documentation, Vital Signs Vital Signs: Last Vital Signs Temp 98 F 12/27/16 12:13 Pulse 86 12/27/16 12:13 Resp BP 110/64 12/27/16 12:13 Pulse Ox 99 12/27/16 12:13 - Medical History PMH: Anxiety, Depression, Diabetes (improved w/ lap band), HIV (unmedicated x 10 months) Denies: Bipolar Disorder (denies), Hepatitis, HTN, Chronic Kidney Disease, Seizures, Sexually Transmitted Disease - Surgical History Surgical History: Cholecystectomy, (3) - Family History Family History: States: Unknown Family Hx - Home Medications Home Medications: Ambulatory Orders Medication Instructions Recorded traMADol [Ultram] 50 mg PO Q8 #10 tab 10/18/16 Escitalopram [Lexapro] 5 mg PO DAILY #30 tab 11/24/16 - Allergies Allergies/Adverse Reactions: Allergies Allergy/AdvReac Type Severity Reaction Status Date / Time No Known Allergies Allergy Verified 12/27/16 12:30 Review of Systems ROS Statement: Except As Marked, All Systems Reviewed And Found Negative Constitutional: Negative for: Fever, Chills Musculoskeletal: Positive for: Leg Pain (right knee exasperated with walk). Negative for: Other (injury/trauma) Physical Exam - Reviewed Nursing Documentation Reviewed: Yes Vital Signs Reviewed: Yes - Physical Exam Appears: Positive for: Well, Non-toxic, No Acute Distress Head Exam: Positive for: ATRAUMATIC, NORMAL INSPECTION, NORMOCEPHALIC Skin: Positive for: Normal Color Extremity: Positive for: Normal ROM (with pain on movement), Tenderness (right knee). Negative for: Pedal Edema, Deformity, Other (erythema/ecchymosis) Neurologic/Psych: Positive for: Alert, epilepsy physician II-XII, Oriented - ECG O2 Sat by Pulse Oximetry: 99 (RA) Pulse Ox Interpretation: Normal Medical Decision Making Medical Decision Making: Initial Impression: Right knee pain Initial Plan: * Xray knee (right) * Percocet 5/325mg PO Pt eloped from ED after receiving percocet Scribe Attestation: Documented by Yennifer Stewart, acting as a scribe for Silvina Christianson Provider Scribe Attestation: All medical record entries made by the Scribe were at my direction and personally dictated by me. I have reviewed the chart and agree that the record accurately reflects my personal performance of the history, physical exam, medical decision making, and the department course for this patient. I have also personally directed, reviewed, and agree with the discharge instructions and disposition. Disposition - Clinical Impression Clinical Impression: Knee pain - Patient ED Disposition Is Patient to be Admitted: No - Disposition Disposition: Eloped Disposition Time: 12:45 Condition: STABLE Forms: [employer] (Montenegrin) - POA Present On Arrival: None
[2016-12-27] MEDS ORDERED: Oxycodone/Acetaminophen 5/325 mg Tab PO STA (12:45)
[2016-12-27] MEDS ORDERED: Oxycodone/Acetaminophen 5/325 mg Tab ONE (12:52)
[2016-12-27 13:17] VITALS: RESP 18
== END 2016-12-27 13:16 | disposition left against medical advice (07) ==
LOC: H.ER 12:08
DX: M25.561 Pain in right knee (principal); E11.22 Type 2 diabetes mellitus with diabetic chronic kidney disease; Z86.59 Personal history of other mental and behavioral disorders; B20 Human immunodeficiency virus [HIV] disease

== ENCOUNTER 2017-02-13 08:42 | Emergency (ER) | payer MEDICAID ==
[2017-02-13] MEDS ORDERED: Albuterol-Ipratrop 3 mg / 0.5 (3 ml) UD INH STA (08:57)
[2017-02-13] MEDS ORDERED: MethylPREDNISolone 40 mg Vial ONE (08:59)
[2017-02-13] MEDS: Albuterol-Ipratrop 3 mg / 0.5 (3 ml) UD IH STA (09:02)
--- NOTE | 2017-02-13 09:12 | ED PDOC ---
HPI: SOB/CHF/COPD Time Seen by Provider: 02/13/17 08:51 Chief Complaint (Provider): Shortness of breath History Per: Patient History/Exam Limitations: no limitations Current Symptoms Are (Timing): Still Present Additional Complaint(s): 46 y/o female with a past medical history of human immunodeficiency virus (HIV) and diabetes who presents to the emergency department with shortness of breath that began after coughing x3 days. Associated with body aches, diarrhea, and congestion. Denies chest pain, abdominal pain, nausea, vomiting, runny nose, and sore throat. States she is not . Past Medical History Reviewed: Historical Data, Nursing Documentation, Vital Signs Vital Signs: Last Vital Signs Temp 97.4 F L 02/13/17 10:27 Pulse 72 02/13/17 10:27 Resp 17 02/13/17 10:27 BP 130/61 02/13/17 10:27 Pulse Ox 97 02/13/17 10:27 - Medical History PMH: Anxiety, Depression, Diabetes (improved w/ lap band), HIV (unmedicated x 10 months) Denies: Bipolar Disorder (denies), Hepatitis, HTN, Chronic Kidney Disease, Seizures, Sexually Transmitted Disease - Surgical History Surgical History: Cholecystectomy, (3) - Family History Family History: States: Unknown Family Hx - Living Arrangements Living Arrangements: Other (homeless) - Home Medications Home Medications: Ambulatory Orders Medication Instructions Recorded traMADol [Ultram] 50 mg PO Q8 #10 tab 10/18/16 Escitalopram [Lexapro] 5 mg PO DAILY #30 tab 11/24/16 Albuterol Sulfate [Proair Hfa] 0.09 mg IH Q6H PRN #2 inh 02/13/17 Azithromycin [Zithromax] 250 mg PO DAILY 5 Days tab 02/13/17 Ibuprofen [Motrin] 600 mg PO TID 7 Days tab 02/13/17 predniSONE [predniSONE Tab] 20 mg PO BID 5 Days tab 02/13/17 - Allergies Allergies/Adverse Reactions: Allergies Allergy/AdvReac Type Severity Reaction Status Date / Time No Known Allergies Allergy Verified 12/27/16 12:30 Review of Systems ROS Statement: Except As Marked, All Systems Reviewed And Found Negative Constitutional: Positive for: Other (Body aches) ENT: Positive for: Nose Congestion. Negative for: Nose Discharge, Throat Pain Cardiovascular: Negative for: Chest Pain Respiratory: Positive for: Cough, Shortness of Breath Gastrointestinal: Positive for: Diarrhea. Negative for: Nausea, Vomiting, Abdominal Pain Physical Exam - Reviewed Nursing Documentation Reviewed: Yes Vital Signs Reviewed: Yes - Physical Exam Appears: Positive for: Non-toxic, No Acute Distress Head Exam: Positive for: ATRAUMATIC, NORMAL INSPECTION, NORMOCEPHALIC Skin: Positive for: Normal Color, Warm, Dry Eye Exam: Positive for: Normal appearance, EOMI, PERRL ENT: Positive for: Nasal Congestion Neck: Positive for: Normal, Supple Cardiovascular/Chest: Positive for: Regular Rate, Rhythm. Negative for: Murmur Respiratory: Positive for: Wheezing (mild wheezing b/l at the bases). Negative for: Accessory Muscle Use, Respiratory Distress Gastrointestinal/Abdominal: Positive for: Normal Exam, Soft. Negative for: Tenderness Back: Positive for: Normal Inspection. Negative for: L CVA Tenderness, R CVA Tenderness Extremity: Positive for: Normal ROM. Negative for: Tenderness, Pedal Edema Neurologic/Psych: Positive for: Alert, Oriented (x3) - ECG O2 Sat by Pulse Oximetry: 100 (RA) Pulse Ox Interpretation: Normal - Progress ED Course And Treament: 1038: Stable. AAOx3. Pain free. Tolerated PO. Fu with pcp. Rx albuterol and prednisone. Zpak. No dyspnea or wheezes. Medical Decision Making Medical Decision Making: Time: 08 Initial Impression: Shortness of breath Initial Plan: --2 treatments of Duoneb 3 mg IH --Nebulizer treatment --Motrin 600 mg PO --Prednisone 60 mg PO --Influenza A B --Reevaluation Scribe Attestation: Documented by Manjula Vee, acting as a scribe for Shawn Vazquez MD. Provider Scribe Attestation: All medical record entries made by the Scribe were at my direction and personally dictated by me. I have reviewed the chart and agree that the record accurately reflects my personal performance of the history, physical exam, medical decision making, and the department course for this patient. I have also personally directed, reviewed, and agree with the discharge instructions and disposition. Disposition - Clinical Impression Clinical Impression: Bronchitis - Patient ED Disposition Is Patient to be Admitted: No Counseled Patient/Family Regarding: Studies Performed, Diagnosis, Need For Followup, Rx Given - Disposition Referrals: Judi,Jamar, MD [Primary Care Provider] - 02/15/17 Disposition: Routine/Home Disposition Time: 10:40 Condition: STABLE Additional Instructions: Return if not better in 3 days. Prescriptions: Albuterol Sulfate [Proair Hfa] 0.09 mg IH Q6H PRN #2 inh PRN Reason: Wheezing Azithromycin [Zithromax] 250 mg PO DAILY 5 Days tab Ibuprofen [Motrin] 600 mg PO TID 7 Days tab predniSONE [predniSONE Tab] 20 mg PO BID 5 Days tab
[2017-02-13 09:15] VITALS: BMI 25.8
[2017-02-13 10:28] VITALS: BP 130/61; PULSE 72; RESP 17; TEMP 97.4
[2017-02-13 10:40] VITALS: O2SAT 100
== END 2017-02-13 11:27 | disposition home or self-care (01) ==
LOC: SUPCPDRO 08:42 → H.ER 08:42
DX: J20.9 Acute bronchitis, unspecified (principal); E11.22 Type 2 diabetes mellitus with diabetic chronic kidney disease; Z86.59 Personal history of other mental and behavioral disorders; B20 Human immunodeficiency virus [HIV] disease; J44.0 Chronic obstructive pulmonary disease with (acute) lower respiratory infection

== ENCOUNTER 2017-02-20 10:48 | Emergency (ER) | payer MEDICAID ==
[2017-02-20 10:50] VITALS: TEMP 98; O2SAT 100; BMI 25.9
[2017-02-20] MEDS ORDERED: Albuterol-Ipratrop 3 mg / 0.5 (3 ml) UD INH STA (11:35)
[2017-02-20] MEDS ORDERED: Albuterol-Ipratrop 3 mg / 0.5 (3 ml) UD ONE (11:38)
[2017-02-20 12:00] LABS: BASO % 0.4 % (0.0-2.0); EOS % 0.4 % (0.0-4.0); HEMATOCRIT 37.9 % (34.0-47.0); LYMPH # 1.7 K/uL (1.0-4.3); LYMPH % 18.7 % (20.0-40.0); MEAN CORPUSCULAR HEMOGLOBIN 25.1 pg (27.0-31.0); MEAN CORPUSCULAR HGB CONC 32.2 g/dL (33.0-37.0); MEAN PLATELET VOLUME 8.4 fl (7.2-11.7); MONO # 0.8 K/uL (0.0-0.8); MONO % 9.1 % (0.0-10.0); NEUT # 6.3 K/uL (1.8-7.0); NEUT % 71.4 % (50.0-75.0); RED CELL DISTRIBUTION WIDTH 13.8 % (11.5-14.5); WHITE BLOOD COUNT 8.9 K/uL (4.8-10.8)
--- NOTE | 2017-02-20 12:05 | ED PDOC ---
HPI: Psych/Substance Abuse Time Seen by Provider: 02/20/17 10:57 Chief Complaint (Nursing): Psychiatric Evaluation History Per: Patient Additional Complaint(s): Pt. states for over a week she's had a non-productive cough with intermittent wheezing. States that she was initially seen in this ED on Wednesday and was prescribed antibiotics and given a pump and steroids. Also reports that she did drink alcohol this morning. Further states that she is not suicidal but she was suicidal 3 months ago and was seen here for it. Denies hemoptysis, chest pain, fever, palpitations, vomiting, diarrhea, sick contacts, recent travel. Past Medical History Reviewed: Historical Data, Nursing Documentation, Vital Signs Vital Signs: Last Vital Signs Temp 98.0 F 02/20/17 10:49 Pulse 91 H 02/20/17 10:49 Resp 16 02/20/17 10:49 BP 95/74 L 02/20/17 10:49 Pulse Ox 100 02/20/17 10:49 - Medical History PMH: Anxiety, Depression, Diabetes (improved w/ lap band), HIV (unmedicated x 10 months) Denies: Bipolar Disorder (denies), Hepatitis, HTN, Chronic Kidney Disease, Seizures, Sexually Transmitted Disease - Surgical History Surgical History: Cholecystectomy, (3) - Family History Family History: States: Unknown Family Hx - Immunization History Hx Tetanus Toxoid Vaccination: No Hx Influenza Vaccination: No Hx Pneumococcal Vaccination: No - Home Medications Home Medications: Ambulatory Orders Medication Instructions Recorded traMADol [Ultram] 50 mg PO Q8 #10 tab 10/18/16 Escitalopram [Lexapro] 5 mg PO DAILY #30 tab 11/24/16 Albuterol Sulfate [Proair Hfa] 0.09 mg IH Q6H PRN #2 inh 02/13/17 Azithromycin [Zithromax] 250 mg PO DAILY 5 Days tab 02/13/17 Ibuprofen [Motrin] 600 mg PO TID 7 Days tab 02/13/17 predniSONE [predniSONE Tab] 20 mg PO BID 5 Days tab 02/13/17 Promethazine DM [Phenergan DM 5 ml PO Q8 PRN #120 ml 02/20/17 Syrup] - Allergies Allergies/Adverse Reactions: Allergies Allergy/AdvReac Type Severity Reaction Status Date / Time No Known Allergies Allergy Verified 12/27/16 12:30 Review of Systems ROS Statement: Except As Marked, All Systems Reviewed And Found Negative Respiratory: Positive for: Cough, Wheezing Physical Exam - Physical Exam Appears: Positive for: Well, Non-toxic, No Acute Distress Skin: Positive for: Normal Color, Warm. Negative for: Rash Eye Exam: Positive for: Normal appearance, EOMI, PERRL ENT: Positive for: Normal ENT Inspection. Negative for: Pharyngeal Erythema, Tonsillar Exudate, Tonsillar Swelling Neck: Positive for: Normal, Painless ROM Cardiovascular/Chest: Positive for: Regular Rate, Rhythm Respiratory: Positive for: Wheezing (minimal expiratory wheezing) Gastrointestinal/Abdominal: Positive for: Normal Exam, Soft. Negative for: Tenderness Back: Positive for: Normal Inspection Extremity: Positive for: Normal ROM Neurologic/Psych: Positive for: Alert, Oriented, Gait (steady; unassisted), Other (AOB). Negative for: Aphasia, Facial Droop - Laboratory Results Result Diagrams: 02/20/17 11:50 02/20/17 11:50 - ECG O2 Sat by Pulse Oximetry: 100 - Radiology X-Ray: Interpreted by Me (CXR) X-Ray Interpretation: No Acute Disease - Progress ED Course And Treament: Labs ordered. CXR ordered. Duoneb x 2 ordered. On re-evaluation, pt. in no distress. Reports feeling much better. Lungs clear b /l. Disposition - Clinical Impression Clinical Impression: Bronchitis - Patient ED Disposition Is Patient to be Admitted: No - Disposition Referrals: [facility] [Outside] Disposition: Routine/Home Disposition Time: 15:30 Condition: STABLE Prescriptions: Promethazine DM [Phenergan DM Syrup] 5 ml PO Q8 PRN #120 ml PRN Reason: Cough Instructions: Acute Bronchitis (ED) Forms: [employer] (Greenlandic) Print Language: SLOVAK
[2017-02-20 12:13] LABS: ALCOHOL SERUM < 10 mg/dl (0-10); ALKALINE PHOSPHATASE 84 U/L (38-126); ALT/SGPT 11 U/L (9-52); AST/SGOT 22 U/L (14-36); BILIRUBIN,TOTAL 0.3 mg/dl (0.2-1.3); BLOOD UREA NITROGEN 11 mg/dl (7-17); CALCIUM 9.3 mg/dL (8.4-10.2); CARBON DIOXIDE 22 mmol/L (22-30); CHLORIDE 104 mmol/L (98-107); GFR AFRICAN-AMERICAN > 60; GLUCOSE,RANDOM 140 mg/dL (65-105); POTASSIUM 4.2 MMOL/L (3.6-5.0); SODIUM 138 mmol/l (132-148)
[2017-02-20 12:27] LABS: ALB/GLOB RATIO 0.7 (1.0-2.1); TOTAL PROTEIN 9.6 G/DL (6.3-8.2)
--- NOTE | 2017-02-20 13:04 | RAD ---
HISTORY: cough COMPARISON: No prior. TECHNIQUE: Chest PA and lateral FINDINGS: LUNGS: No active pulmonary disease. PLEURA: No significant pleural effusion identified. No pneumothorax apparent. CARDIOVASCULAR: Normal. OSSEOUS STRUCTURES: No significant abnormalities. VISUALIZED UPPER ABDOMEN: Normal. OTHER FINDINGS: None. IMPRESSION: No active disease.
[2017-02-20 16:11] VITALS: BP 126/79; PULSE 88; RESP 14
== END 2017-02-20 15:53 | disposition home or self-care (01) ==
LOC: H.ER 10:48
DX: J40 Bronchitis, not specified as acute or chronic (principal); I12.9 Hypertensive chronic kidney disease with stage 1 through stage 4 chronic kidney disease, or unspecified chronic kidney disease; E11.9 Type 2 diabetes mellitus without complications; F32.9 Major depressive disorder, single episode, unspecified; F41.9 Anxiety disorder, unspecified

== ENCOUNTER 2017-07-26 12:09 | Inpatient (IN) | payer MEDICAID ==
[2017-07-26 12:09] VITALS: BMI 25.9
--- NOTE | 2017-07-26 13:06 | ED PDOC ---
History of Present Illness History of Present Illness: 47yo female with history of HIV, anxiety and depression, presents to ED stating she has had cold like symptoms for the past 2 days, including a dry cough, nasal congestion and tactile fever. Patient then states "real reason" she is here is because she is homeless, hungry and feeling depressed., She reports she has been non-compliant with her HIV medication for the past couple weeks due to her depression; patient's last blood work was 1 week ago which indicated an undetectable viral load. Patient states her PCP, Dr. Lau is aware of her noncompliance with the medication. She currently denies any suicidal ideation, homicidal ideation or hallucinations, Patient states "if you don't feed me, I am leaving." She denies any abdominal pain, vomiting, diarrhea, chest pain, flank pain, urinary symptoms or recent travels. She has no other medical complaints. LMP: 07/22/17 HPI: Influenza Time Seen by Provider: 07/26/17 12:49 Chief Complaint: Cough, Cold, Congestion Chief Complaint (Provider): URI History Per: Patient Exam Limitations: no limitations Have you had recent travel within the past 21 days to any of: No Onset/Duration Of Symptoms: Days Symptoms include: cough. denies: chest pain Sick Contacts (Context): None Past Medical History Reviewed: Historical Data, Nursing Documentation, Vital Signs Vital Signs: Last Vital Signs Temp 99.2 F 07/26/17 12:16 Pulse 87 07/26/17 12:16 Resp 18 07/26/17 12:16 BP 120/77 07/26/17 12:16 Pulse Ox 99 07/26/17 12:16 - Medical History PMH: Anxiety, Depression, Diabetes (improved w/ lap band), HIV (unmedicated x 10 months) Denies: Bipolar Disorder (denies), Hepatitis, HTN, Chronic Kidney Disease, Seizures, Sexually Transmitted Disease - Surgical History Surgical History: Cholecystectomy, (3) - Family History Family History: States: Unknown Family Hx - Living Arrangements Living Arrangements: Other (homeless) - Social History Current smoker - smoking cessation education provided: Yes Alcohol: Social Drugs: Cocaine - Home Medications Home Medications: Ambulatory Orders Medication Instructions Recorded No Known Home Med 07/26/17 - Allergies Allergies/Adverse Reactions: Allergies Allergy/AdvReac Type Severity Reaction Status Date / Time No Known Allergies Allergy Verified 07/26/17 12:16 Review of Systems ROS Statement: Except As Marked, All Systems Reviewed And Found Negative Constitutional: Positive for: Fever (tactile) ENT: Positive for: Nose Congestion Respiratory: Positive for: Cough. Negative for: Sputum Psych: Positive for: Anxiety, Depression. Negative for: Suicidal ideation Physical Exam - Reviewed Nursing Documentation Reviewed: Yes Vital Signs Reviewed: Yes - Physical Exam Comments: GENERAL APPEARANCE: Patient is awake, alert, oriented x 3, in mild emotional distress. Tearful. SKIN: Warm, dry; (-) cyanosis. HEAD: (-) scalp swelling, (-) scalp tenderness. EYES: (-) conjunctival pallor, (-) scleral icterus, (-) nystagmus. ENMT: Mucous membranes moist. Airway patent: (-) stridor. NECK: Supple, FROM (-) tenderness, (-) stiffness, (-) lymphadenopathy. CHEST AND RESPIRATORY: (-) rales, (-) rhonchi, (-) wheezes; breath sounds equal. Speaking in full sentences, respirations even and nonlabored. (-) accessory muscle use (-) retractions. ABDOMEN: Soft, (-) distention, (-) tenderness, (-) guarding. NEURO AND PSYCH: Mental status as above. Affect: Flat. Memory: Intact. bushler: Pupils equal and reactive; EOMI; (-) facial asymmetry; tongue and uvula midline. Medical Decision Making Medical Decision Making: Impression: Homelessness, depression, cough/congestion likely viral URI Plan: -- Crisis evaluation Time: 1440 Patient sleeping in ED stretcher comfortably. No acute distress noted. Time: 1513 Per CRISIS evaluation, patient to be admitted with a diagnosis of depression, under Dr. Guidry. Following tests to be ordered for admission: -- Chest X-Ray -- EKG -- CBC -- CMP -- UDS -- Urinalysis -- Upreg -- Alcohol serum 1630 CXR reviewed, radiology report follows HISTORY: clearance for admission COMPARISON: 02/20/2017 TECHNIQUE: Chest PA and lateral FINDINGS: LUNGS: Hyperinflation, manifestations of COPD. No active pulmonary disease. PLEURA: No significant pleural effusion identified. No pneumothorax apparent. CARDIOVASCULAR: Normal. OSSEOUS STRUCTURES: No significant abnormalities. VISUALIZED UPPER ABDOMEN: Normal. OTHER FINDINGS: Hardware related to bariatric procedure. IMPRESSION: No active disease. No significant interval change compared to the prior examination(s). Time: 1647 Labs and EKG reviewed. Utox (+) cocaine. Small amount of hematuria noted on U/A but patient denies any urinary symptoms or symptoms of renal colic. Patient denies any history of renal disease. VSS. Patient is medically stable for psychiatric admission. Arrangements made for admission. Time: 1720 Patient requesting cough medication, Robitussin 200 mg PO ordered. Scribe Attestation: Documented by Jaquelin Ely acting as a scribe for CIERA Luis Provider Attestation: All medical record entries made by the Scribe were at my direction and personally dictated by me. I have reviewed the chart and agree that the record accurately reflects my personal performance of the history, physical exam, medical decision making, and the department course for this patient. I have also personally directed, reviewed, and agree with the discharge instructions and disposition. - Laboratory Results Result Diagrams: 07/26/17 15:53 07/26/17 15:53 - ECG ECG: Positive for: Interpreted By Me, Viewed By Me ECG Rhythm: Positive for: Sinus Rhythm (normal axis). Negative for: ST/T Changes Rate: 80 O2 Sat by Pulse Oximetry: 99 Disposition - Clinical Impression Clinical Impression: Depression, Cough, Viral respiratory infection - Patient ED Disposition Is Patient to be Admitted: Yes Counseled Patient/Family Regarding: Diagnosis - Disposition Disposition Time: 16:47 Condition: FAIR - Pt Status Changed To: Hospital Disposition Of: Inpatient - Admit Certification Admit to Inpatient:: After my assessment, the patient will require hospitalization for at least two midnights. This is because of the severity of symptoms shown, intensity of services needed, and/or the medical risk in this patient being treated as an outpatient. - POA Present On Arrival: None Results - Lab Results Lab Results: 07/26/17 07/26/17 07/26/17 15:53 15:53 15:53 WBC 3.7 L RBC 4.99 Hgb 12.4 Hct 38.9 MCV 78.0 L MCH 24.8 L MCHC 31.8 L RDW 15.0 H Plt Count 302 MPV 8.2 Neut % (Auto) 51.0 Lymph % (Auto) 33.4 [place] % (Auto) 14.0 H Eos % (Auto) 0.5 Baso % (Auto) 1.1 Neut # (Auto) 1.9 Lymph # (Auto) 1.2 [place] # (Auto) 0.5 Eos # (Auto) 0.0 Baso # (Auto) 0.0 Sodium 140 Potassium 3.8 Chloride 102 Carbon Dioxide 26 Anion Gap 16 BUN 7 Creatinine 0.7 Est GFR ( Amer) > 60 Est GFR (Non-Af Amer) > 60 Random Glucose 82 Calcium 9.0 Total Bilirubin 0.3 AST 35 ALT 17 Alkaline Phosphatase 100 Total Protein 10.7 H Albumin 4.0 Globulin 6.7 H Albumin/Globulin Ratio 0.6 L Urine Opiates Screen Negative Urine Methadone Screen Negative Ur Barbiturates Screen Negative Ur Phencyclidine Scrn Negative Ur Amphetamines Screen Negative U Benzodiazepines Scrn Negative U Oth Cocaine Metabols Positive H U Cannabinoids Screen Negative Alcohol, Quantitative < 10
[2017-07-26 16:05] LABS: BASO % 1.1 % (0.0-2.0); EOS % 0.5 % (0.0-4.0); HEMOGLOBIN 12.4 g/dL (12.0-16.0); LYMPH # 1.2 K/uL (1.0-4.3); LYMPH % 33.4 % (20.0-40.0); MEAN CORPUSCULAR HEMOGLOBIN 24.8 pg (27.0-31.0); MEAN CORPUSCULAR HGB CONC 31.8 g/dL (33.0-37.0); MEAN PLATELET VOLUME 8.2 fl (7.2-11.7); MONO # 0.5 K/uL (0.0-0.8); NEUT # 1.9 K/uL (1.8-7.0); NRBC % 0.4 % (0.0-0.0); RBC 4.99 Mil/uL (3.80-5.20); WHITE BLOOD COUNT 3.7 K/uL (4.8-10.8)
[2017-07-26 16:14] LABS: ALB/GLOB RATIO 0.6 (1.0-2.1); ALT/SGPT 17 U/L (9-52); AST/SGOT 35 U/L (14-36); BLOOD UREA NITROGEN 7 mg/dl (7-17); GFR AFRICAN-AMERICAN > 60; GFR NON-AFRICAN AMERICAN > 60
[2017-07-26 16:21] LABS: BARBITURATES, UR NEGATIVE (NEGATIVE)
[2017-07-26 16:26] LABS: BENZODIAZEPINES, UR NEGATIVE (NEGATIVE); OPIATES, UR NEGATIVE (NEGATIVE); PHENCYCLIDINE, UR NEGATIVE (NEGATIVE)
[2017-07-26 16:49] LABS: SQUAMOUS EPITHIAL 4 /hpf (0-5); URINE BACTERIA RARE (<OCC); URINE BILIRUBIN NEGATIVE (NEGATIVE); URINE BLOOD MODERATE (NEGATIVE); URINE CLARITY CLOUDY (Clear); URINE COLOR YELLOW (YELLOW); URINE GLUCOSE (UA) NEG (Normal); URINE LEUKOCYTE ESTERASE NEG Leu/uL (Negative); URINE PROTEIN NEGATIVE (NEGATIVE); URINE UROBILINOGEN 0.2-1.0 mg/dL (0.2-1.0)
[2017-07-26] MEDS ORDERED: guaiFENesin 200 mg/10 ml Syrup UD PO STA (17:23)
--- NOTE | 2017-07-26 17:24 | RAD ---
HISTORY: clearance for admission COMPARISON: 02/20/2017 TECHNIQUE: Chest PA and lateral FINDINGS: LUNGS: Hyperinflation, manifestations of COPD. No active pulmonary disease. PLEURA: No significant pleural effusion identified. No pneumothorax apparent. CARDIOVASCULAR: Normal. OSSEOUS STRUCTURES: No significant abnormalities. VISUALIZED UPPER ABDOMEN: Normal. OTHER FINDINGS: Hardware related to bariatric procedure. IMPRESSION: No active disease. No significant interval change compared to the prior examination(s).
[2017-07-26] MEDS ORDERED: guaiFENesin 100 mg/5 ml Syrup UD ONE (17:26)
--- NOTE | 2017-07-26 19:00 | PCM.BM ---
<Gurpreet Simeon - Last Filed: 07/26/17 18:58> Treatment Plan Problems - Problems identified on initial assessmt Hopelessness/Helplessness Date Initiated: 07/26/17 Time Initiated: 18:00 Assessment reference: NA Status: Active Treatment assets and liabiliti Patient Assests: cooperative, insightful, resourceful, self-reliant, ADL independent, physically healthy, negotiates basic needs, good past tx response, cognitively intact Patient Liabilities: financial problems, poor support system - Milieu Protocol Maintain good personal hygiene: every shift Encourage regular showers, every shift Remind patient to perform daily oral care, every shift Assist patient to perform ADL's Maintain personal safety: every shift Educate patient to report safety concerns to staff, every shift Monitor environment for contraband/sharps Medication safety: Monitor for expected outcome, potential side effects: every shift, Assess barriers to learning: every shift, Assess readiness for medication education: every shift <Laura Cai - Last Filed: 07/28/17 16:29> Treatment assets and liabiliti Patient Assests: adapts well, cooperative, insightful (insight into illness and need for tx is limited) Patient Liabilities: relationship conflicts, substance abuse Family Contact Family involvement: Famliy/SO not involved Family contact: Patient declines to allow family contact at present - Outside Agency Agency 1 Care involvment: Following patient during stay, Information-sharing Agency contact name: [facility] - Goals for Treatment Patient goals for treatment: Patient to continue stabilization on 3NP through medication management and group/supportive therapy. Patient to be encouraged to attend groups regularly to promote self-awareness, compliance, and improve insight, coping skills and self-esteem. Patient to be provided with referral for appropriate level of aftercare to reduce risk of future hospitalizations and ensure safety in the community. Discharge/Continuing Care - Education Needs Education Needs: Patient Medication, Patient Diagnosis/Disease Process, Patient Coping Skills, Patient Anger Management skills, Patient Community resources, Patient Aftercare Safety Plan - Discharge Discharge Criteria: Tolerates medication w/o severe side effects, Free of Suicidal thoughts, Normal sleep pattern, Ability to care for self, No longer exhibiting s/s of withdrawal, Reduction of target symptoms Discharge to:: Assisted, Other ([facility]/ [facility]/ [facility]) - Treatment Team Participation Patient/Family/SO Statement: 07/28/17 16:33 Pt. refused to attend treatment team this morning secondary to sxs of withdrawal and being "congested". Patient to be seen in tx team on 07/30. Discussed with Family/SO: No Was Patient/Family/SO present at Treatment Team Meeting: No (pt. refused) <La Chance - Last Filed: 07/30/17 11:21> - Diagnosis (1) Cocaine abuse Status: Acute Interventions: motivational therapy 07/30/17 11:21 <Simón Benjamin - Last Filed: 07/30/17 11:41> Discharge/Continuing Care - Additional Comments 07/30/17 11:28 Pt reported that she feels better today, but is apprehensive to find out what her T cell count is as she has not been taking care of herself. Pt reported that she stopped taking her medications and used cocaine because she stopped caring if she lived and wanted to numb and forget about her life. Pt discussed how after her lap band surgery and traded her food addiction for one to cocaine.
[2017-07-26] MEDS ORDERED: DiphenhydrAMINE 50 mg/ml Inj IM PRN (19:11)
[2017-07-26] MEDS ORDERED: Magnesium Hydroxide Susp 30 ml UD PO PRN (19:11)
[2017-07-26] MEDS ORDERED: Alum-Mag Hydrox-Simethicone Susp (30 mL) PO PRN (19:11)
[2017-07-26 19:20] VITALS: O2SAT 99
--- NOTE | 2017-07-26 20:12 | CP.PCM.CON ---
History of Present Illness - History of Present Illness History of Present Illness: Medicine Consult Note 47 year old undomiciled female with PMHx of HIV, depression, obesity, prediabetes admitted to for feeling depressed, also with complaints of dry cough , subjective fever, chills and nasal congestion for past 5 days. She feels like her T-Cells are low. Admits she has not taken any medications for past 7 months. Notes weight loss, but reports she has had decreased appetite. She had blood work done on 07/05/2017 but she did not return for follow up visit. She has not been seen in [facility] clinic since October of 2016. Patient previously following up with [facility]. Last CD4 count in [facility]: 590, CD4% 38% PMD: Dr. 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 HIV acquired through unprotected sex Family hx: Mother and brother w/ schizophrenia. Son bipolar. Both parents IV drug users (heroin) both from complications of AIDS. Review of Systems - Constitutional Constitutional: Chills, Fever (subjective), Weight Loss - EENT Eyes: absent: Change in Vision, Itchy Eyes, Loss of Vision Ears: absent: Ear Discharge, Ear Pain, Tinnitus Nose/Mouth/Throat: Nasal Congestion. absent: Nasal Discharge, Sinus Pain, Sinus Pressure, Mouth Pain, Sore Throat, Neck Pain - Cardiovascular Cardiovascular: absent: Chest Pain, Dyspnea, Edema - Respiratory Respiratory: Cough (nonproductive). absent: Dyspnea on Exertion, Wheezing, Pain on Inspiration, Excessive Mucous Production - Gastrointestinal Gastrointestinal: absent: Abdominal Pain, Bloating, Constipation, Cramping, Diarrhea, Loose Stools, Nausea, Vomiting - Genitourinary Genitourinary: absent: Difficulty Urinating, Dysuria, Hematuria Past Patient History - Infectious Disease Hx of Infectious Diseases: None - Past Social History Alcohol: Social Drugs: Cocaine - CARDIAC Hx Hypertension: No - PULMONARY Hx Respiratory Disorders: No Hx Tuberculosis: No - NEUROLOGICAL Hx Seizures: No - HEENT Hx HEENT Problems: No - RENAL Hx Chronic Kidney Disease: No - ENDOCRINE/METABOLIC Hx Endocrine Disorders: Yes - HEMATOLOGICAL/ONCOLOGICAL Hx Human Immunodeficiency Virus (HIV): Yes (unmedicated x 10 months) - INTEGUMENTARY Hx Dermatological Problems: No - MUSCULOSKELETAL/RHEUMATOLOGICAL Hx Musculoskeletal Disorders: No - GASTROINTESTINAL Hx Gastrointestinal Disorders: No - GENITOURINARY/GYNECOLOGICAL Hx Sexually Transmitted Disorders: No - PSYCHIATRIC Hx Anxiety: Yes Hx Bipolar Disorder: No (denies) Hx Depression: Yes - SURGICAL HISTORY Hx Cholecystectomy: Yes - ANESTHESIA Hx Anesthesia: Yes Meds Allergies/Adverse Reactions: Allergies Allergy/AdvReac Type Severity Reaction Status Date / Time No Known Allergies Allergy Verified 07/26/17 12:16 - Medications Medications: Current Medications Acetaminophen (Tylenol 325mg Tab) 650 mg PO Q4 PRN PRN Reason: Pain, moderate (4-7) Al Hydrox/Mg Hydrox/Simethicone (Maalox Plus 30 Ml) 30 ml PO Q4 PRN PRN Reason: Dyspepsia Diphenhydramine HCl (Benadryl) 50 mg IM Q6 PRN PRN Reason: Extrapyramidal S/S Unable PO Diphenhydramine HCl (Benadryl) 50 mg PO Q6 PRN PRN Reason: Extrapyramidal Symptoms Haloperidol (Haldol) 5 mg PO Q4 PRN PRN Reason: Agitation Haloperidol Lactate (Haldol) 5 mg IM Q4 PRN PRN Reason: Agitation, Unable to Take PO Lorazepam (Ativan) 2 mg IM Q4 PRN PRN Reason: Anxiety/Agitation,Unable PO Lorazepam (Ativan) 2 mg PO Q4 PRN PRN Reason: Anxiety/Agitation Magnesium Hydroxide (Milk Of Magnesia) 30 ml PO HS PRN PRN Reason: Constipation Physical Exam - Constitutional Appears: Non-toxic, No Acute Distress, Unkempt - Head Exam Head Exam: ATRAUMATIC, NORMAL INSPECTION, NORMOCEPHALIC - Eye Exam Eye Exam: EOMI, Normal appearance, PERRL Pupil Exam: NORMAL ACCOMODATION, PERRL - ENT Exam ENT Exam: Mucous Membranes Moist, Normal Exam, Normal External Ear Exam, Normal Oropharynx - Neck Exam Neck exam: Positive for: Full Rom, Normal Inspection. Negative for: Lymphadenopathy, Meningismus, Tenderness, Thyromegaly - Respiratory Exam Respiratory Exam: Clear to Auscultation Bilateral, NORMAL BREATHING PATTERN. absent: Decreased Breath Sounds, Rales, Rhonchi, Wheezes, Respiratory Distress - Cardiovascular Exam Cardiovascular Exam: REGULAR RHYTHM, +S1, +S2. absent: Diastolic murmur, Systolic Murmur - GI/Abdominal Exam GI & Abdominal Exam: Normal Bowel Sounds, Soft. absent: Distended, Organomegaly , Rigid, Tenderness - Rectal Exam Rectal Exam: Deferred - Extremities Exam Extremities exam: Negative for: pedal edema, tenderness - Neurological Exam Neurological exam: CN II-XII Intact, Normal Gait, Oriented x3 - Psychiatric Exam Psychiatric exam: Depressed, Flat Affect - Skin Skin Exam: Dry, Intact Results - Vital Signs Recent Vital Signs: Last Vital Signs Temp 99.4 F 07/26/17 17:48 Pulse 80 07/26/17 19:34 Resp 20 07/26/17 18:16 BP 110/68 07/26/17 17:48 Pulse Ox 99 07/26/17 19:34 - Labs Result Diagrams: 07/26/17 15:53 07/26/17 15:53 Labs: Laboratory Results - last 24 hr 07/26/17 07/26/17 07/26/17 15:53 15:53 15:53 WBC 3.7 L RBC 4.99 Hgb 12.4 Hct 38.9 MCV 78.0 L MCH 24.8 L MCHC 31.8 L RDW 15.0 H Plt Count 302 MPV 8.2 Neut % (Auto) 51.0 Lymph % (Auto) 33.4 Lane % (Auto) 14.0 H Eos % (Auto) 0.5 Baso % (Auto) 1.1 Neut # (Auto) 1.9 Lymph # (Auto) 1.2 Lane # (Auto) 0.5 Eos # (Auto) 0.0 Baso # (Auto) 0.0 Sodium 140 Potassium 3.8 Chloride 102 Carbon Dioxide 26 Anion Gap 16 BUN 7 Creatinine 0.7 Est GFR ( Amer) > 60 Est GFR (Non-Af Amer) > 60 Random Glucose 82 Calcium 9.0 Total Bilirubin 0.3 AST 35 ALT 17 Alkaline Phosphatase 100 Total Protein 10.7 H Albumin 4.0 Globulin 6.7 H Albumin/Globulin Ratio 0.6 L Urine Color Urine Clarity Urine pH Ur Specific [place] Urine Protein Urine Glucose (UA) Urine Ketones Urine Blood Urine Nitrate Urine Bilirubin Urine Urobilinogen Ur Leukocyte Esterase Urine RBC (Auto) Urine Microscopic WBC Ur Squamous Epith Cells Urine Bacteria Urine Opiates Screen Negative Urine Methadone Screen Negative Ur Barbiturates Screen Negative Ur Phencyclidine Scrn Negative Ur Amphetamines Screen Negative U Benzodiazepines Scrn Negative U Oth Cocaine Metabols Positive H U Cannabinoids Screen Negative Alcohol, Quantitative < 10 07/26/17 15:53 WBC RBC Hgb Hct MCV MCH MCHC RDW Plt Count MPV Neut % (Auto) Lymph % (Auto) Lane % (Auto) Eos % (Auto) Baso % (Auto) Neut # (Auto) Lymph # (Auto) Lane # (Auto) Eos # (Auto) Baso # (Auto) Sodium Potassium Chloride Carbon Dioxide Anion Gap BUN Creatinine Est GFR ( Amer) Est GFR (Non-Af Amer) Random Glucose Calcium Total Bilirubin AST ALT Alkaline Phosphatase Total Protein Albumin Globulin Albumin/Globulin Ratio Urine Color Yellow Urine Clarity Cloudy Urine pH 6.0 Ur Specific [place] 1.019 Urine Protein Negative Urine Glucose (UA) Neg Urine Ketones Negative Urine Blood Moderate Urine Nitrate Negative Urine Bilirubin Negative Urine Urobilinogen 0.2-1.0 Ur Leukocyte Esterase Neg Urine RBC (Auto) 12 H Urine Microscopic WBC 1 Ur Squamous Epith Cells 4 Urine Bacteria Rare Urine Opiates Screen Urine Methadone Screen Ur Barbiturates Screen Ur Phencyclidine Scrn Ur Amphetamines Screen U Benzodiazepines Scrn U Oth Cocaine Metabols U Cannabinoids Screen Alcohol, Quantitative Assessment & Plan (1) Upper respiratory infection Assessment and Plan: 47 year old undomiciled female with PMHx of HIV, depression, obesity, prediabetes admitted to for feeling depressed and URI. She has +cough, feeling cold. URI-appears to be viral at this time, would treat symptomatically, encouraged PO intake of fluids, tylenol for fever/pain, tessalon perles for cough Nurse states patient had 2 temps >100.4, tmx 101.9 but not seen documented in vital signs. Patient was afebrile in ED. nurse says ' she was cleared to come up here'. Unable to obtain results of labs done in [facility] on 07/05/2017, will call in AM and obtain. At this time would hold off on starting antibiotics, given her last CD4 in Jan 2017 was 590, and this appears to be viral in etiology. Status: Acute (2) Leukopenia Assessment and Plan: likely related to HIV disease/acute URI will follow Status: Acute (3) HIV (human immunodeficiency virus infection) Assessment and Plan: not on medications for over 7 months, will obtain labs from clinic As per [facility]: last CD4 590 in Jan 2017 Status: Chronic (4) Depression Assessment and Plan: as per primary team Status: Chronic (5) Obesity (BMI 30.0-34.9) Assessment and Plan: s/p lap band outpatient management patient undomiciled, not always able to control her meals Status: Chronic (6) Prediabetes Assessment and Plan: last hga1c: 5.9, outpatient mangement Status: Chronic
[2017-07-27 06:15] LABS: BASO % 0.7 % (0.0-2.0); EOS % 0.4 % (0.0-4.0); HEMOGLOBIN 11.7 g/dL (12.0-16.0); LYMPH # 1.5 K/uL (1.0-4.3); LYMPH % 24.9 % (20.0-40.0); MEAN CELL VOLUME 77.4 fl (81.0-99.0); MEAN CORPUSCULAR HEMOGLOBIN 25.3 pg (27.0-31.0); MEAN CORPUSCULAR HGB CONC 32.7 g/dL (33.0-37.0); MONO # 0.8 K/uL (0.0-0.8); MONO % 13.4 % (0.0-10.0); NEUT # 3.6 K/uL (1.8-7.0); NEUT % 60.6 % (50.0-75.0); NRBC % 0.1 % (0.0-0.0); RBC 4.64 Mil/uL (3.80-5.20); WHITE BLOOD COUNT 5.9 K/uL (4.8-10.8)
[2017-07-27 06:28] LABS: ALB/GLOB RATIO 0.6 (1.0-2.1); ALBUMIN 3.5 g/dL (3.5-5.0); ALT/SGPT 26 U/L (9-52); AST/SGOT 24 U/L (14-36); BLOOD UREA NITROGEN 8 mg/dl (7-17); CALCIUM 8.6 mg/dL (8.4-10.2); GFR AFRICAN-AMERICAN > 60; GFR NON-AFRICAN AMERICAN > 60; HDL CHOLESTEROL 37 MG/DL (30-70)
[2017-07-27 06:36] LABS: LDL CHOLESTEROL 76 mg/dL (0-129)
[2017-07-27 06:41] LABS: T4 5.95 ug/dl (5.5-11.0)
--- NOTE | 2017-07-27 12:22 | CP.PCM.PCO ---
Physician Communication Note - Physician Communication Note Physician Communication Note: Re: Cd4 count Assessment & Plan - Assessment and Plan (Free Text) Assessment: Obtained pt's lab from [facility] done 07/07/17 latest Cd4 count at at 399 with a viral load of 67,630 Given these values there is no indication for antibiotic prophylaxis Also given pt's non-compliance with medication and risk of resistance, will not re-start HIV medication while pt is hospitalized
--- NOTE | 2017-07-27 12:40 | PCM.PSYCH ---
Initial Psychiatric Evaluation - Initial Psychiatric Evaluation Type of Admission: Voluntary Legal Status: Capacity Chief Complaint (in patient's own words): I am depressed and tired Patient's Reaction to Hospitalization: pt requested help History of Present Illness and Precipitating Events: pt with previous diagnosis of depression, HIV, poly substance use pt has not been compliant with medications or follow up, became increasingly depressed, pt also is homeless and having conflicts with her children , facing financial difficulties, became hopeless and helpless, stopped taking her HIV medications, on day of evaluation started experiencing suicidal ideation, came to ER seeking help pt currently presenting with passive suicidal ideations, no plan r intent on unit,denied homicidal ideations or psychotic symptoms reported using alcohol unspecified amounts last use four days ago, also uses cocaine daily last use yesterday Current Medications: Active Medications Generic Name Dose Route Start Last Admin Trade Name Freq PRN Reason Stop Dose Admin Acetaminophen 650 mg 07/26/17 19:11 07/26/17 21:31 Tylenol 325mg Tab PO 650 mg Q4 PRN Administration Pain, moderate (4-7) Acetaminophen 650 mg 07/26/17 21:24 07/27/17 06:46 Tylenol 325mg Tab PO 650 mg Q4 PRN Administration Fever >100.4 F Al Hydrox/Mg Hydrox/Simethicone 30 ml 07/26/17 19:11 Maalox Plus 30 Ml PO Q4 PRN Dyspepsia Benzonatate 100 mg 07/26/17 20:13 Tessalon Perles PO TID PRN Cough Bupropion HCl 75 mg 07/27/17 11:32 Wellbutrin PO DAILY [facility] Diphenhydramine HCl 50 mg 07/26/17 19:11 Benadryl IM Q6 PRN Extrapyramidal S/S Unable PO Diphenhydramine HCl 50 mg 07/26/17 19:11 Benadryl PO Q6 PRN Extrapyramidal Symptoms Gabapentin 100 mg 07/27/17 13:00 Neurontin PO TID [facility] Haloperidol 5 mg 07/26/17 19:11 Haldol PO Q4 PRN Agitation Haloperidol Lactate 5 mg 07/26/17 19:11 Haldol IM Q4 PRN Agitation, Unable to Take PO Lorazepam 2 mg 07/26/17 19:11 Ativan IM Q4 PRN Anxiety/Agitation,Unable PO Lorazepam 1 mg 07/27/17 12:25 Ativan PO TID PRN Anxiety Magnesium Hydroxide 30 ml 07/26/17 19:11 Milk Of Magnesia PO HS PRN Constipation Quetiapine Fumarate 50 mg 07/27/17 22:00 Seroquel PO HS [facility] Past Psychiatric History - Past Psychiatric History Explanation of prior treatment: multiple inpatient hospitalizations, history of non compliance History of ETOH/Drug Use: history of cocaine and alcohol use Pertinent Medical Hx (Current Medical&Sleep Prob, Allergies): Allergies Allergy/AdvReac Type Severity Reaction Status Date / Time No Known Allergies Allergy Verified 07/26/17 12:16 No Known Home Med 07/26/17 Mental Status Examination - Personal Presentation Personal Presentation: Looks older than stated age - Affect Affect: Constricted, Depressed - Motor Activity Motor Activity: Psychomotor Retardation - Reliability in Providing Information Reliability in Providing Information: Poor, due to alteration in thoughts, Poor , due to altered mood - Speech Speech: Relevant - Mood Mood: Depressed, Anxious - Formal Thought Process Formal Thought Process: Circumstantial - Hallucinations/Delusions Additional comments: pt denied psychotic symptoms, non elicited - Obsessions/Compulsions Obsessions: No Compulsions: No - Cognitive Functions Orientation: Person, Place, Situation Sensorium: Alert Judgement: Imparied, as evidence by: Poor judgement, Imparied, as evidence by: Lack of insight into illness - Risk Risk: Withdrawal, Diminished functioning - Strength & Assets Inventory Strength & Assets Inventory: Life experience - Limitations Additional comments: homeless DSM 5 DX - DSM 5 DSM 5 Diagnosis: 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
--- NOTE | 2017-07-27 21:31 | CARD ---
APPROVED REPORT EKG Measurement Heart [id number] <Conclusion> Normal sinus rhythm Normal ECG
--- NOTE | 2017-07-28 08:17 | CP.PCM.PN ---
Subjective - Date & Time of Evaluation Date of Evaluation: 07/28/17 Time of Evaluation: 08:00 - Subjective Subjective: No overnight events. Pt seen in am. Reports cough, non productive, that has improved since yesterday. Denies fever, chills, dysuria, n/v/c. Objective - Vital Signs/Intake and Output Vital Signs (last 24 hours): Temp Pulse Resp BP Pulse Ox 97.4 F L 114 H 20 128/88 99 07/27/17 17:00 07/27/17 17:00 07/27/17 17:00 07/27/17 17:00 07/26/17 19:34 - Medications Medications: Current Medications Acetaminophen (Tylenol 325mg Tab) 650 mg PO Q4 PRN PRN Reason: Pain, moderate (4-7) Last Admin: 07/26/17 21:31 Dose: 650 mg Acetaminophen (Tylenol 325mg Tab) 650 mg PO Q4 PRN PRN Reason: Fever >100.4 F Last Admin: 07/27/17 06:46 Dose: 650 mg Al Hydrox/Mg Hydrox/Simethicone (Maalox Plus 30 Ml) 30 ml PO Q4 PRN PRN Reason: Dyspepsia Benzonatate (Tessalon Perles) 100 mg PO TID PRN PRN Reason: Cough Bupropion HCl (Wellbutrin) 75 mg PO DAILY [facility] Last Admin: 07/27/17 12:41 Dose: 75 mg Diphenhydramine HCl (Benadryl) 50 mg IM Q6 PRN PRN Reason: Extrapyramidal S/S Unable PO Diphenhydramine HCl (Benadryl) 50 mg PO Q6 PRN PRN Reason: Extrapyramidal Symptoms Gabapentin (Neurontin) 100 mg PO TID [facility] Last Admin: 07/27/17 17:22 Dose: 100 mg Haloperidol (Haldol) 5 mg PO Q4 PRN PRN Reason: Agitation Haloperidol Lactate (Haldol) 5 mg IM Q4 PRN PRN Reason: Agitation, Unable to Take PO Lorazepam (Ativan) 2 mg IM Q4 PRN PRN Reason: Anxiety/Agitation,Unable PO Lorazepam (Ativan) 1 mg PO TID PRN PRN Reason: Anxiety Magnesium Hydroxide (Milk Of Magnesia) 30 ml PO HS PRN PRN Reason: Constipation Quetiapine Fumarate (Seroquel) 50 mg PO HS [facility] Last Admin: 07/27/17 21:04 Dose: 50 mg - Labs Labs: 07/27/17 05:50 07/27/17 05:50 - Constitutional Appears: Well, Non-toxic, No Acute Distress, Unkempt - Head Exam Head Exam: NORMAL INSPECTION - Eye Exam Eye Exam: Normal appearance - ENT Exam ENT Exam: Mucous Membranes Moist - Respiratory Exam Respiratory Exam: Clear to Ausculation Bilateral. absent: Rales, Wheezes - Cardiovascular Exam Cardiovascular Exam: REGULAR RHYTHM, +S1, +S2. absent: Murmur - GI/Abdominal Exam GI & Abdominal Exam: Soft, Normal Bowel Sounds. absent: Distended, Tenderness - Back Exam Back Exam: NORMAL INSPECTION - Neurological Exam Neurological Exam: Alert, Awake, Oriented x3 - Psychiatric Exam Psychiatric exam: Depressed - Skin Skin Exam: Normal Color Assessment and Plan - Assessment and Plan (Free Text) Assessment: 47 year old undomiciled female with PMHx of HIV, depression, obesity, prediabetes admitted to for suicide attempt in setting of acute depressive episode and URI. #Cough, acute -Non productive -Low grade fevers -Likely related to URI -Cxray wnl (07/26) -Will continue to monitor -Consider repeat Cxray -F/U am cbc, BCx, and Ucx -Encourage po fluids, tylenol for fevers, and tessalnon perles for cough #SIRS (Temp 100.4, HR 114) -May be 2/2 to URI. No white count on admission. -No source of infection identified, Cxray and UCx wnl -F/U am cbc, BCx, and Ucx -Consider repeat Cxray #HIV,. chronic -not on medications for over 7 months -Lates CD4 count at 399 with viral load of 67, 630 -No indication for prophylactic antibiotic therapy -Pt is noncompliant with therapy and states she will likely not start. Given risk of resistance, will not restart HAART while hospitalized. #Depression as per primary team #Overweight (BMI 25) -s/p lap band -outpatient management -patient undomiciled, not always able to control her meals #Prediabetes -A1c 6.0, outpatient management #DVT -Encourage Ambulation
[2017-07-28 09:27] LABS: HEMOGLOBIN 12.2 g/dL (12.0-16.0); MEAN CELL VOLUME 77.2 fl (81.0-99.0); MEAN CORPUSCULAR HEMOGLOBIN 25.2 pg (27.0-31.0); MEAN CORPUSCULAR HGB CONC 32.7 g/dL (33.0-37.0); RBC 4.85 Mil/uL (3.80-5.20); RED CELL DISTRIBUTION WIDTH 15.3 % (11.5-14.5)
--- NOTE | 2017-07-28 15:12 | PCM.PYCHPN ---
Psychiatric Progress Note - Psychiatric Progress Note Patient seen today, length of contact: pt evaluated discussed with team chart reviewed Patient Chief Complaint: I am still feeling sick and congested Problems Identified/Issues Discussed: pt seen in her room, continues to feel tired and having withdrawal symptoms, depressed, isolative in her room encouraged pt to attempt to attend groups, pt compliant with treatment, no reported side effects of wellbutrin, continues to have early insomnia denied any current suicidal or homicidal ideations, denied command hallucinations Medical Problems: multiple inpatient hospitalizations, history of non compliance DSM 5 Symptoms Update: mood disorder due to medical condition cocaine use disorder Medication Change: No Medical Record Reviewed: Yes Mental Status Examination - Cognitive Function Orientation: Person, Place, Situation - Mood Mood: Depressed, Anxious - Affect Affect: Constricted, Depressed - Speech Speech: Appropriate - Formal Thought Process Formal Thought Process: Circumstantial Psychotic Thoughts and Behaviors: pt denied perceptual disturbances, non elicited - Suicidal Ideation Suicidal Ideation: No - Homicidal Ideation Homicidal Ideation: No Goal/Treatment Plan - Goal/Treatment Plan Need for Continued Stay: Severe depression anxiety, Discharge may exacerbated symptoms, Severe functional impairment Progress Toward Problem(s) and Goals/Treatment Plan: continue with wellbutrin 75mg daily seroquel 50mg qhs neurontin 100mg tid for anxiety motivational, group and supportive therapy
[2017-07-28] MEDS ORDERED: Petrolatum UD PAK TOP PRN (18:37)
--- NOTE | 2017-07-29 15:02 | PCM.PYCHPN ---
Psychiatric Progress Note - Psychiatric Progress Note Patient seen today, length of contact: pt evaluated discussed with team chart reviewed Patient Chief Complaint: I am feeling better and I want to look for an apartment Problems Identified/Issues Discussed: pt seen in day room, more visibale on the unit, reported better mood, presenting with brighter affect, discussed with pt need to start inpatient rehab on discharge pt compliant with treatment, no reported side effects of wellbutrin, reported better sleep denied any current suicidal or homicidal ideations, denied command hallucinations Medical Problems: multiple inpatient hospitalizations, history of non compliance DSM 5 Symptoms Update: 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 Medication Change: No Medical Record Reviewed: Yes Mental Status Examination - Cognitive Function Orientation: Person, Place, Situation Attention: WNL Concentration: WNL Association: WNL Fund of Knowledge: WNL Decription of patient's judgement and insights: poor insight and judgment - Mood Mood: Anxious - Affect Affect: Constricted, Depressed - Speech Speech: Appropriate - Formal Thought Process Formal Thought Process: Circumstantial Psychotic Thoughts and Behaviors: pt denied perceptual disturbances, non elicited - Suicidal Ideation Suicidal Ideation: No - Homicidal Ideation Homicidal Ideation: No Goal/Treatment Plan - Goal/Treatment Plan Need for Continued Stay: Severe depression anxiety, Discharge may exacerbated symptoms, Severe functional impairment Progress Toward Problem(s) and Goals/Treatment Plan: continue with wellbutrin 75mg daily seroquel 50mg qhs neurontin 100mg tid for anxiety motivational, group and supportive therapy
--- NOTE | 2017-07-30 07:04 | CP.PCM.PN ---
Subjective - Date & Time of Evaluation Date of Evaluation: 07/30/17 Time of Evaluation: 08:00 - Subjective Subjective: Spoke with Lab regarding Influenza results. Lab states they have not received specimen. As per RN note, specimen was sent yesterday. Influenza labs re-ordered and recollected. Pt seen and evaluated at the bedside. States she has occasional cough that has improved slightly since admission. Productive of yellowish sputum, less than a teaspoon. Denies cp, sob, abdominal pain, dysuria, headache, chills, earache, sore throat. Objective - Vital Signs/Intake and Output Vital Signs (last 24 hours): Temp Pulse Resp BP Pulse Ox 98.1 F 101 H 20 110/61 99 07/30/17 06:50 07/29/17 16:32 07/29/17 16:32 07/29/17 16:32 07/26/17 19:34 - Medications Medications: Current Medications Acetaminophen (Tylenol 325mg Tab) 650 mg PO Q4 PRN PRN Reason: Pain, moderate (4-7) Last Admin: 07/28/17 21:18 Dose: 650 mg Acetaminophen (Tylenol 325mg Tab) 650 mg PO Q4 PRN PRN Reason: Fever >100.4 F Last Admin: 07/27/17 06:46 Dose: 650 mg Al Hydrox/Mg Hydrox/Simethicone (Maalox Plus 30 Ml) 30 ml PO Q4 PRN PRN Reason: Dyspepsia Benzonatate (Tessalon Perles) 100 mg PO TID PRN PRN Reason: Cough Bupropion HCl (Wellbutrin) 75 mg PO DAILY [facility] Last Admin: 07/29/17 09:08 Dose: 75 mg Diphenhydramine HCl (Benadryl) 50 mg IM Q6 PRN PRN Reason: Extrapyramidal S/S Unable PO Diphenhydramine HCl (Benadryl) 50 mg PO Q6 PRN PRN Reason: Extrapyramidal Symptoms Emollient Ointment (Vaseline Oint) 1 pkt TOP BIDHS PRN PRN Reason: Dry skin Gabapentin (Neurontin) 100 mg PO TID [facility] Last Admin: 07/29/17 18:23 Dose: 100 mg Haloperidol (Haldol) 5 mg PO Q4 PRN PRN Reason: Agitation Haloperidol Lactate (Haldol) 5 mg IM Q4 PRN PRN Reason: Agitation, Unable to Take PO Lorazepam (Ativan) 2 mg IM Q4 PRN PRN Reason: Anxiety/Agitation,Unable PO Lorazepam (Ativan) 1 mg PO TID PRN PRN Reason: Anxiety Magnesium Hydroxide (Milk Of Magnesia) 30 ml PO HS PRN PRN Reason: Constipation Quetiapine Fumarate (Seroquel) 50 mg PO HS [facility] Last Admin: 07/29/17 21:15 Dose: 50 mg - Labs Labs: 07/28/17 09:05 07/27/17 05:50 - Constitutional Appears: Well, Non-toxic, No Acute Distress - Head Exam Head Exam: NORMAL INSPECTION - Eye Exam Eye Exam: Normal appearance - ENT Exam ENT Exam: Mucous Membranes Moist Additional comments: Plaques seen on tongue, no bleeding, no tonsilar enlargement/erythema/ or exudates Lymphadenopathy - Respiratory Exam Respiratory Exam: Clear to Ausculation Bilateral, NORMAL BREATHING PATTERN. absent: Accessory Muscle Use, Decreased Breath Sounds, Rales, Wheezes, Respiratory Distress - Cardiovascular Exam Cardiovascular Exam: REGULAR RHYTHM, +S1, +S2. absent: Murmur - GI/Abdominal Exam GI & Abdominal Exam: Soft, Normal Bowel Sounds. absent: Distended, Tenderness - Back Exam Back Exam: absent: CVA tenderness (L), CVA tenderness (R) - Neurological Exam Neurological Exam: Alert, Awake, Oriented x3 Assessment and Plan - Assessment and Plan (Free Text) Assessment: 47 year old undomiciled female with PMHx of HIV, depression, obesity, prediabetes admitted to for suicide attempt in setting of acute depressive episode and URI. Pt still spiking low grade fevers, cough improving, thrush noted. Starting Flucanazole. F/U UCx . #Cough, acute (productive, minimal yellow sputum) -No longer SIRS -Low grade fevers, no leukocytosis -Likely related to URI -Cxray wnl (07/26)- no active disease -Will continue to monitor -BCx no growth x2 -Encourage po fluids, tylenol for fevers, and tessalon perles for cough #Hematuria -U/A + for blood -Renal U/S normal -Bladder U/S-pending -Urine Cytology-pending -Questionnable menses, pt states she is spotting, unclear about cycle # Oral Candiadasis -Flucanazole po 100mg started, Day 05/09 #HIV,. chronic -not on medications for over 7 months -Lates CD4 count at 399 with viral load of 67, 630 (07/05) -No indication for prophylactic antibiotic therapy -Pt is noncompliant with therapy and states she will likely not start. Given risk of resistance, will not restart HAART while hospitalized. #Depression as per primary team #Overweight (BMI 25) -s/p lap band -outpatient management -patient undomiciled, not always able to control her meals #Prediabetes -A1c 6.0, outpatient management #DVT -Encourage Ambulation
[2017-07-30 07:07] LABS: BASO % 0.6 % (0.0-2.0); EOS # 0.1 K/uL (0.0-0.7); EOS % 2.6 % (0.0-4.0); HEMOGLOBIN 11.4 g/dL (12.0-16.0); LYMPH # 1.7 K/uL (1.0-4.3); LYMPH % 32.7 % (20.0-40.0); MEAN CELL VOLUME 77.8 fl (81.0-99.0); MEAN CORPUSCULAR HEMOGLOBIN 25.3 pg (27.0-31.0); MEAN CORPUSCULAR HGB CONC 32.5 g/dL (33.0-37.0); MONO # 0.7 K/uL (0.0-0.8); NEUT # 2.6 K/uL (1.8-7.0); NEUT % 51.1 % (50.0-75.0); NRBC % 0.1 % (0.0-0.0); RBC 4.52 Mil/uL (3.80-5.20); RED CELL DISTRIBUTION WIDTH 14.9 % (11.5-14.5); WHITE BLOOD COUNT 5.1 K/uL (4.8-10.8)
[2017-07-30 09:02] VITALS: RESP 18
--- NOTE | 2017-07-30 10:09 | US ---
PROCEDURE: Ultrasound of the Kidneys HISTORY: RBCs in urine chronic COMPARISON: Correlation is made to CT scan of the abdomen and pelvis from 01/23/2014. TECHNIQUE: Sonogram of the kidneys. FINDINGS: RIGHT KIDNEY: Measures: 12.6 x 6.0 x 5.1 cm. Normal in size, contour and echogenicity. No stone, solid mass lesion or hydronephrosis visualized. LEFT KIDNEY: Measures: 12.7 x 6.5 x 5.3 cm. Normal in size, contour and echogenicity. No stone, solid mass lesion or hydronephrosis visualized. OTHER FINDINGS: None. IMPRESSION: Unremarkable renal sonogram.
--- NOTE | 2017-07-30 13:58 | PCM.PYCHPN ---
Psychiatric Progress Note - Psychiatric Progress Note Patient seen today, length of contact: pt evaluated discussed with team chart reviewed Patient Chief Complaint: I still have trouble sleeping and I feel down Problems Identified/Issues Discussed: pt evaluated with treatment team, reported continues to have low energy, relates that to poor sleep, with early insomnia discussed with pt increasing dose of seroquel to 100mg qhs encouraged pt to attend groups, and motivational therapy provided in reference to cocaine use ,discussed with pt need to attend [facility] outpatient on discharge pt denied any current suicidal or homicidal ideations, denied command hallucinations Medical Problems: multiple inpatient hospitalizations, history of non compliance DSM 5 Symptoms Update: 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 cocaine use disorder mood disorder due to medical condition with depressive features Medication Change: Yes (increase seroquel) Medical Record Reviewed: Yes Mental Status Examination - Cognitive Function Orientation: Person, Place, Situation Attention: WNL Concentration: WNL Association: WNL Fund of Knowledge: WN Decription of patient's judgement and insights: poor insight and judgment - Mood Mood: Anxious - Affect Affect: Constricted, Depressed - Speech Speech: Appropriate - Formal Thought Process Formal Thought Process: Circumstantial Psychotic Thoughts and Behaviors: pt denied perceptual disturbances, non elicited - Suicidal Ideation Suicidal Ideation: No - Homicidal Ideation Homicidal Ideation: No Goal/Treatment Plan - Goal/Treatment Plan Need for Continued Stay: Severe depression anxiety, Discharge may exacerbated symptoms, Severe functional impairment Progress Toward Problem(s) and Goals/Treatment Plan: continue with wellbutrin 75mg daily increase seroquel 100mg qhs neurontin 100mg tid for anxiety motivational, group and supportive therapy Estimated Date of D/C: 08/02/17
--- NOTE | 2017-07-30 16:40 | US ---
PROCEDURE: Ultrasound of the Bladder HISTORY: rbcs in urine chronic COMPARISON: None available. TECHNIQUE: Sonographic evaluation of the bladder was performed. FINDINGS: Unremarkable without wall thickening or intraluminal debris. No calculus or gross mass lesion. No free fluid in pelvis. No diverticular changes are grossly evident. Prevoid Volume: 670.91 cc. Post void residual: 18.29 or 2.7 percent cc. IMPRESSION: Unremarkable sonogram of the bladder.
--- NOTE | 2017-07-31 12:51 | CP.PCM.PN ---
Subjective - Date & Time of Evaluation Date of Evaluation: 07/31/17 Time of Evaluation: 11:50 - Subjective Subjective: Pt seen on unit, initially declined having labs drawn this morning, but now agreeable to it. Pt also reports having a blister between her toes but refusing a foot exam at this time. Otherwise doing well, feeling much better Objective - Vital Signs/Intake and Output Vital Signs (last 24 hours): Temp Pulse Resp BP Pulse Ox 97.7 F 89 18 115/68 99 07/31/17 09:32 07/31/17 09:32 07/31/17 09:32 07/31/17 09:32 07/26/17 19:34 - Medications Medications: Current Medications Acetaminophen (Tylenol 325mg Tab) 650 mg PO Q4 PRN PRN Reason: Pain, moderate (4-7) Last Admin: 07/28/17 21:18 Dose: 650 mg Acetaminophen (Tylenol 325mg Tab) 650 mg PO Q4 PRN PRN Reason: Fever >100.4 F Last Admin: 07/27/17 06:46 Dose: 650 mg Al Hydrox/Mg Hydrox/Simethicone (Maalox Plus 30 Ml) 30 ml PO Q4 PRN PRN Reason: Dyspepsia Benzonatate (Tessalon Perles) 100 mg PO TID PRN PRN Reason: Cough Bupropion HCl (Wellbutrin) 75 mg PO DAILY [facility] Last Admin: 07/31/17 08:43 Dose: 75 mg Diphenhydramine HCl (Benadryl) 50 mg IM Q6 PRN PRN Reason: Extrapyramidal S/S Unable PO Diphenhydramine HCl (Benadryl) 50 mg PO Q6 PRN PRN Reason: Extrapyramidal Symptoms Emollient Ointment (Vaseline Oint) 1 pkt TOP BIDHS PRN PRN Reason: Dry skin Last Admin: 07/31/17 08:44 Dose: 1 pkt Fluconazole (Diflucan) 100 mg PO DAILY [facility] PRN Reason: Protocol Last Admin: 07/31/17 08:43 Dose: 100 mg Gabapentin (Neurontin) 100 mg PO TID [facility] Last Admin: 07/31/17 08:43 Dose: 100 mg Haloperidol (Haldol) 5 mg PO Q4 PRN PRN Reason: Agitation Haloperidol Lactate (Haldol) 5 mg IM Q4 PRN PRN Reason: Agitation, Unable to Take PO Lorazepam (Ativan) 2 mg IM Q4 PRN PRN Reason: Anxiety/Agitation,Unable PO Lorazepam (Ativan) 1 mg PO TID PRN PRN Reason: Anxiety Magnesium Hydroxide (Milk Of Magnesia) 30 ml PO HS PRN PRN Reason: Constipation Quetiapine Fumarate (Seroquel) 100 mg PO HS [facility] Last Admin: 07/30/17 21:29 Dose: 100 mg - Labs Labs: 07/30/17 06:45 07/27/17 05:50 - Constitutional Appears: Non-toxic - Eye Exam Eye Exam: Normal appearance - Respiratory Exam Respiratory Exam: Clear to Ausculation Bilateral, NORMAL BREATHING PATTERN. absent: Rhonchi, Wheezes - Cardiovascular Exam Cardiovascular Exam: REGULAR RHYTHM, +S1, +S2 - GI/Abdominal Exam GI & Abdominal Exam: Soft, Normal Bowel Sounds. absent: Tenderness - Extremities Exam Additional comments: foot exam declined - Neurological Exam Neurological Exam: Alert, Awake - Psychiatric Exam Psychiatric exam: Flat Affect Assessment and Plan - Assessment and Plan (Free Text) Assessment: 47 year old undomiciled female with PMHx of HIV, depression, obesity, prediabetes admitted to for suicide attempt in setting of acute depressive episode and URI. Pt last fever (low grade) was 07/29/17 at 100.2 Self Reports Foot Blister Pt declines foot exam, but also reports no pus or drainage will attempt at another to examine foot #Cough, acute (productive, minimal yellow sputum) -No longer SIRS -Low grade fevers, no leukocytosis -Likely related to URI -Cxray wnl (07/26)- no active disease -Will continue to monitor -BCx no growth x2 -Encourage po fluids, tylenol for fevers, and tessalon perles for cough #Hematuria -U/A + for blood -Renal U/S normal -Bladder U/S-pending -Urine Cytology-pending -Questionnable menses, pt states she is spotting, unclear about cycle # Oral Candiadasis -Flucanazole po 100mg started, Day 2/7 #HIV,. chronic -not on medications for over 7 months -Lates CD4 count at 399 with viral load of 67, 630 (07/05) -No indication for prophylactic antibiotic therapy -Pt is noncompliant with therapy and states she will likely not start. Given risk of resistance, will not restart HAART while hospitalized. #Depression as per primary team #Overweight (BMI 25) -s/p lap band -outpatient management -patient undomiciled, not always able to control her meals #Prediabetes -A1c 6.0, outpatient management #DVT -Encourage Ambulation
--- NOTE | 2017-07-31 20:14 | PCM.PYCHPN ---
Psychiatric Progress Note - Psychiatric Progress Note Patient seen today, length of contact: pt evaluated discussed with team chart reviewed Patient Chief Complaint: was feeling depressed not taking medications for mental health as well as ART's Problems Identified/Issues Discussed: alteration in mood alteration in coping Medical Problems: per chart Diagnostic Results: per psychiatry per medicine per nursing per social working Medication Change: No Medical Record Reviewed: Yes Consults ordered or reviewed: pt being followed by Family Practice Mental Status Examination - Cognitive Function Orientation: Person, Place, Situation Attention: WNL Concentration: WNL Association: WNL Fund of Knowledge: WN Decription of patient's judgement and insights: impaired - Mood Mood: Anxious - Affect Affect: Constricted, Depressed - Speech Speech: Appropriate - Formal Thought Process Formal Thought Process: Circumstantial - Suicidal Ideation Suicidal Ideation: No - Homicidal Ideation Homicidal Ideation: No Goal/Treatment Plan - Goal/Treatment Plan Need for Continued Stay: Severe depression anxiety, Discharge may exacerbated symptoms, Severe functional impairment Progress Toward Problem(s) and Goals/Treatment Plan: inpt milieu adjust meds per clinical status vital signs and clinical assessment per protocol and per clinical status pt being followed by family practice(reportedly has not taken art's for as much as 7 months) discharge planning in progress return [facility] Estimated Date of D/C: 08/02/17 - Smoking Cessation Smoking Cessation Initiated: No Reason for not providing: pt defers
[2017-07-31] MEDS: Bacitracin/Neomycin/Polymyxin 30GM OINT TOP PRN (21:21)
[2017-08-01] MEDS: Bacitracin/Neomycin/Polymyxin 30GM OINT TOP PRN (09:21)
--- NOTE | 2017-08-01 16:48 | PCM.PYCHPN ---
Psychiatric Progress Note - Psychiatric Progress Note Patient seen today, length of contact: pt evaluated discussed with team chart reviewed Patient Chief Complaint: seen in social area with peer watching movie appears to be talking and laughing- denies side effects with buproprion 75mg IR. staff report pt has been rx adherent. Problems Identified/Issues Discussed: alteration in mood alteration in coping Medical Problems: per chart Diagnostic Results: per psychiatry per medicine per nursing per social working DSM 5 Symptoms Update: somewhat less depressed with somewhat more energy Medication Change: No Medical Record Reviewed: Yes Consults ordered or reviewed: pt being followed by family practice Mental Status Examination - Cognitive Function Orientation: Person, Place, Situation Attention: WNL Concentration: WNL Association: WNL Fund of Knowledge: WN Decription of patient's judgement and insights: impaired - Mood Mood: Anxious - Affect Affect: Constricted, Depressed - Speech Speech: Appropriate - Formal Thought Process Formal Thought Process: No Impairment - Suicidal Ideation Suicidal Ideation: No - Homicidal Ideation Homicidal Ideation: No Goal/Treatment Plan - Goal/Treatment Plan Need for Continued Stay: Severe depression anxiety, Discharge may exacerbated symptoms, Severe functional impairment Progress Toward Problem(s) and Goals/Treatment Plan: inpt milieu adjust meds per clinical status pt was started on buproprion 75mg IR this am without notable side effects -somewhat improved depression energy will increase to full therapeutic dose of 150mg po SR daily am vital signs and clinical assessment per protocol and per clinical status pt being followed by family practice(reportedly has not taken art's for as much as 7 months) discharge planning in progress return to [facility] Estimated Date of D/C: 08/02/17 - Smoking Cessation Smoking Cessation Initiated: No Reason for not providing: pt defers
[2017-08-02] MEDS ORDERED: buPROPion SR 150 MG TABLET PO SCH (09:00)
[2017-08-02 09:28] VITALS: BP 93/75; PULSE 91; TEMP 97.5
--- NOTE | 2017-08-02 12:36 | PCM.PYCHDC ---
Mental Status Examination - Mental Status Examination Orientation: Person, Place, Situation Memory: Intact Mood: Neutral Affect: Broad Speech: Appropriate Attention: WNL Concentration: WNL Association: WNL Fund of Knowledge: WNL Formal Thought Process: No Impairment Description of patient's judgement and insight: fair insight and judgment Psychotic Thoughts and Behaviors: pt denied perceptual disturbances, non elicited Suicidal Ideation: No Current Homicidal Ideation?: No Discharge Summary - Discharge Note Reason for Hospitalization: pt requested help pt with previous diagnosis of depression, HIV, poly substance use pt has not been compliant with medications or follow up, became increasingly depressed, pt also is homeless and having conflicts with her children , facing financial difficulties, became hopeless and helpless, stopped taking her HIV medications, on day of evaluation started experiencing suicidal ideation, came to ER seeking help pt currently presenting with passive suicidal ideations, no plan r intent on unit,denied homicidal ideations or psychotic symptoms reported using alcohol unspecified amounts last use four days ago, also uses cocaine daily last use yesterday Consultations:: List each consultation separately and include: 1. Reason for request. 2. Findings. 3. Follow-up Summary of Hospital Course include:: 1. Description of specific treatment plan utilized for patients during their course of treatmen. 2. Summarize the time- course for resolution of acute symptoms and/or regressed behaviors. 3. Describe issues identified and worked on during hospitalization. 4. Describe medication utilized. 5. Describe medical problems identified and treated. 6. Reassessment of suicide risk Summary of Hospital Course: pt on admission was atrted on wellbutrin 75mg for depression, it was uptitrated to 150mg pt was also placed on neurontin for anxiety family practice consult requested for HIV status follow up and treatment motivational therapy provided for cocaine use CBT group and supportive therapy provided ptwas compliant with treatment , no reported side effects of medications pt on discharge, mental status was stable, denied any current suicidal or homicidal ideations denied perceptual disturbances - Diagnosis (1) Cocaine abuse Current Visit: Yes Status: Acute - Final Diagnosis (DSM 5) Condition upon Discharge: FAIR DSM 5: 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 mood disorder due to medical condition with depressive features Disposition: HOME/ ROUTINE Follow-up Treatment Plan: continue with wellbutrin 75mg daily increase seroquel 100mg qhs neurontin 100mg tid for anxiety motivational, group and supportive therapy Prescriptions/Medication Reconciliation: Bacitracin/Neomycin/Polymyxin [Neosporin Antibiotic Oint] 1 applic TOP TID PRN 7 Days #1 tube PRN Reason: Other buPROPion SR [Wellbutrin SR 150 MG] 150 mg PO DAILY 30 Days #30 tab Gabapentin [Neurontin] 100 mg PO TID 30 Days #90 cap QUEtiapine [Seroquel] 100 mg PO HS 30 Days #30 tab - Antipsychotic Medications Pt discharged on 2 or more routine antipsychotic medications: No
== END 2017-08-02 12:28 | disposition home or self-care (01) | DRG 714 ==
LOC: H.ER 12:09 → H.PSYCH 16:47 → H.ER 17:48
PROVIDERS: ADMIT Psychiatry & Neurology Psychiatry; ATTEND Psychiatry & Neurology Psychiatry
PROC: GZHZZZZ Group Psychotherapy (ICD-10-PCS; principal; 2017-07-28)
PROC: GZ51ZZZ Individual Psychotherapy, Behavioral (ICD-10-PCS; 2017-07-28)
DX: F14.14 Cocaine abuse with cocaine-induced mood disorder (principal); N18.9 Chronic kidney disease, unspecified; Z21 Asymptomatic human immunodeficiency virus [HIV] infection status; K75.9 Inflammatory liver disease, unspecified; R56.9 Unspecified convulsions; E11.22 Type 2 diabetes mellitus with diabetic chronic kidney disease; F32.9 Major depressive disorder, single episode, unspecified; F06.30 Mood disorder due to known physiological condition, unspecified; F17.200 Nicotine dependence, unspecified, uncomplicated; F41.9 Anxiety disorder, unspecified; G47.00 Insomnia, unspecified; I12.9 Hypertensive chronic kidney disease with stage 1 through stage 4 chronic kidney disease, or unspecified chronic kidney disease; Z59.0 Homelessness; Z81.8 Family history of other mental and behavioral disorders; Z83.0 Family history of human immunodeficiency virus [HIV] disease; Z90.49 Acquired absence of other specified parts of digestive tract; Z91.14 Patient's other noncompliance with medication regimen; Z91.19 Patient's noncompliance with other medical treatment and regimen; Z98.84 Bariatric surgery status; R31.9 Hematuria, unspecified; D72.819 Decreased white blood cell count, unspecified; E66.9 Obesity, unspecified; Z68.30 Body mass index [BMI] 30.0-30.9, adult; F10.10 Alcohol abuse, uncomplicated; B37.9 Candidiasis, unspecified

== ENCOUNTER 2017-08-04 14:28 | Inpatient (IN) | payer MEDICAID ==
[2017-08-04 14:28] VITALS: BMI 25.9
[2017-08-04] MEDS ORDERED: Sodium Chloride 0.9% 1,000 ML IV STA ×2 (15:03→17:55)
[2017-08-04 15:21] LABS: VENOUS BLOOD GAS BASE EXCESS 0.3 mmol/L (0.0-2.0); VENOUS BLOOD GAS PCO2 32 mmHg (40-60); VENOUS BLOOD GAS PO2 43 mm/Hg (30-55); VENOUS BLOOD PH 7.47 (7.32-7.43)
--- NOTE | 2017-08-04 15:21 | ED PDOC ---
History of Present Illness History of Present Illness: 47 y/o female with a history of HIV presents to the ED with flu like symptoms. Patient is complaining of a fever, cough, and congestion that started three days ago. 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 She complains of SOB but denies CP, headache, vomit , and diarrhea. She was here at this ED over the weekend for depression and was discharged Wednesday morning. Of note, patient has not started her HIV medication but will soon with PMD. She states her current CD4 count is 388. PMD: Dr. Azul Franklin MD HPI: Influenza Time Seen by Provider: 08/04/17 14:41 Chief Complaint: Fever Chief Complaint (Provider): Fever History Per: Patient Exam Limitations: no limitations Have you had recent travel within the past 21 days to any of: No Onset/Duration Of Symptoms: Days (x3) Symptoms include: fever, cough, other (congestion) Risk factors for flu complications: Yes: immunosuppression (HIV) Past Medical History Reviewed: Historical Data, Nursing Documentation, Vital Signs Vital Signs: Last Vital Signs Temp 100.6 F H 08/04/17 14:29 Pulse 124 H 08/04/17 14:29 Resp 16 08/04/17 14:29 BP 109/58 L 08/04/17 14:29 Pulse Ox 96 08/04/17 14:29 - Medical History PMH: Anxiety, Depression, Diabetes (improved w/ lap band), HIV (unmedicated x 10 months) Denies: Bipolar Disorder (denies), Hepatitis, HTN, Chronic Kidney Disease, Seizures, Sexually Transmitted Disease - Surgical History Surgical History: Cholecystectomy, (3) Other surgeries: Gastric band - Family History Family History: States: Unknown Family Hx - Social History Current smoker - smoking cessation education provided: No Ex-Smoker (has not smoked in the last 12 months): No Alcohol: None Drugs: Denies - Immunization History Hx Tetanus Toxoid Vaccination: No Hx Influenza Vaccination: No Hx Pneumococcal Vaccination: No - Home Medications Home Medications: Ambulatory Orders Medication Instructions Recorded Bacitracin/Neomycin/Polymyxin 1 applic TOP TID PRN 7 Days #1 tube 08/02/17 [Neosporin Antibiotic Oint] Benzonatate [Tessalon Perles] 100 mg PO TID PRN #0 sgl 08/02/17 Fluconazole [Diflucan] 100 mg PO DAILY #0 tab 08/02/17 Gabapentin [Neurontin] 100 mg PO TID 30 Days #90 cap 08/02/17 QUEtiapine [Seroquel] 100 mg PO HS 30 Days #30 tab 08/02/17 buPROPion SR [Wellbutrin SR 150 MG] 150 mg PO DAILY 30 Days #30 tab 08/02/17 - Allergies Allergies/Adverse Reactions: Allergies Allergy/AdvReac Type Severity Reaction Status Date / Time No Known Allergies Allergy Verified 08/04/17 14:29 Review of Systems ROS Statement: Except As Marked, All Systems Reviewed And Found Negative Constitutional: Positive for: Fever Respiratory: Positive for: Cough, Shortness of Breath, Other (congestion) Musculoskeletal: Positive for: Back Pain (left upper side) Physical Exam - Reviewed Nursing Documentation Reviewed: Yes Vital Signs Reviewed: Yes - Physical Exam Appears: Positive for: Non-toxic, No Acute Distress Head Exam: Positive for: ATRAUMATIC, NORMOCEPHALIC Skin: Positive for: Normal Color, Warm, Dry Eye Exam: Positive for: EOMI, Normal appearance, PERRL ENT: Positive for: Normal ENT Inspection Neck: Positive for: Normal, Painless ROM, Supple Cardiovascular/Chest: Positive for: Tachycardia Respiratory: Positive for: Normal Breath Sounds. Negative for: Respiratory Distress Gastrointestinal/Abdominal: Positive for: Normal Exam, Soft. Negative for: Tenderness Back: Positive for: Normal Inspection. Negative for: L CVA Tenderness, R CVA Tenderness, Vertebral Tenderness Extremity: Positive for: Normal ROM. Negative for: Pedal Edema, Deformity Neurologic/Psych: Positive for: Alert, Oriented (x3). Negative for: Motor/ Sensory Deficits Medical Decision Making Medical Decision Making: Time: 14:29 Initial Impression: Respiratory Infection Differential Diagnosis: Pneumonia, influenza, or bronchitis. Rule our sepsis from pneumonia. Initial Plan: * EKG * CMP * Magnesium Test * Phosphorous Test * CBC * Partial Thromboplastin * Prothrombin Time * Chest X-Ray * IV Fluids * Blood Culture * Urine Culture * Influenza Test * Uranalysis Scribe Attestation: Documented by Aleyda Reeves acting as a scribe for Dr. Rachael Anna MD. MD Cervantes Attestation: All medical record entries made by the Scribe were at my direction and personally dictated by me. I have reviewed the chart and agree that the record accurately reflects my personal performance of the history, physical exam, medical decision making, and the department course for this patient. I have also personally directed, reviewed, and agree with the discharge instructions and disposition. - Laboratory Results Result Diagrams: 08/04/17 15:40 08/04/17 15:41 - ECG O2 Sat by Pulse Oximetry: 96 (RA) Pulse Ox Interpretation: Normal - Radiology X-Ray: Viewed By Me, Read By Radiologist X-Ray Interpretation: Infiltrates Disposition - Clinical Impression Clinical Impression: HIV (human immunodeficiency virus infection), Pneumonia, Sepsis - Patient ED Disposition Is Patient to be Admitted: Yes Discussed With DrLaurence: Génesis Rosario Doctor Will See Patient In The: ED Counseled Patient/Family Regarding: Studies Performed, Diagnosis - Disposition Disposition Time: 17:50 Condition: FAIR - Pt Status Changed To: Hospital Disposition Of: Inpatient - Admit Certification Admit to Inpatient:: After my assessment, the patient will require hospitalization for at least two midnights. This is because of the severity of symptoms shown, intensity of services needed, and/or the medical risk in this patient being treated as an outpatient. - POA Present On Arrival: None Core Measure Indicators: Pneumonia Curb-65 Severity Score - CURB-65 Severity Score Confusion: No Bun >19mg/dl (>7mmol/L): No Respiratory Rate greater than/equal to 30: No Systolic BP <90 or Diastolic BP less than/equal 60mmHg: No Age >64: No Curb-65 Score: 0 Percentage 30-day mortality: 0.6%
[2017-08-04 15:47] LABS: BASO # 0.1 K/uL (0.0-0.2); BASO % 0.9 % (0.0-2.0); HEMOGLOBIN 10.7 g/dL (12.0-16.0); LYMPH # 1.3 K/uL (1.0-4.3); LYMPH % 9.5 % (20.0-40.0); MEAN CELL VOLUME 76.2 fl (81.0-99.0); MEAN CORPUSCULAR HEMOGLOBIN 25.5 pg (27.0-31.0); MEAN CORPUSCULAR HGB CONC 33.4 g/dL (33.0-37.0); MEAN PLATELET VOLUME 8.7 fl (7.2-11.7); MONO % 7.6 % (0.0-10.0); NEUT # 11.1 K/uL (1.8-7.0); PLATELET COUNT 314 K/uL (130-400); RBC 4.21 Mil/uL (3.80-5.20); RED CELL DISTRIBUTION WIDTH 14.6 % (11.5-14.5); WHITE BLOOD COUNT 13.5 K/uL (4.8-10.8)
[2017-08-04 16:03] LABS: INR 1.3 (0.9-1.2); PARTIAL THROMBOPLASTIN TIME 27.8 Seconds (25.6-37.1); PROTHROMBIN TIME 14.8 Seconds (9.8-13.1)
[2017-08-04 16:26] LABS: ALB/GLOB RATIO 0.6 (1.0-2.1); ALBUMIN 3.9 g/dL (3.5-5.0); ALT/SGPT 8 U/L (9-52); AST/SGOT 33 U/L (14-36); BLOOD UREA NITROGEN 10 mg/dl (7-17); CALCIUM 8.6 mg/dL (8.4-10.2); GFR AFRICAN-AMERICAN > 60; GFR NON-AFRICAN AMERICAN > 60
[2017-08-04] MEDS ORDERED: Potassium Chloride 20 mEq ER Tab PO ONE ×2 (16:38→18:21)
[2017-08-04 16:58] LABS: ANISOCYTOSIS MODERATE; BANDS 5 % (0-2); HYPOCHROMIC SLIGHT; LYMPHOCYTE 13 % (20-50); MICROCYTOSIS MODERATE; MONOCYTE 8 % (0-10); NEUTROPHIL 74 % (42-75); OVALOCYTES SLIGHT; PLATELET ESTIMATE NORMAL (NORMAL); POIKILOCYTOSIS SLIGHT; POLYCHROMIC SLIGHT; SMUDGE CELLS PRESENT; TOTAL CELLS COUNTED 100
--- NOTE | 2017-08-04 17:24 | RAD ---
HISTORY: COMPARISON: 07/26/2017. TECHNIQUE: Chest PA and lateral FINDINGS: LINES AND TUBES: None. LUNG AND PLEURA: The lungs are hyperinflated and there is peribronchial thickening with chronic changes in both lungs. There is consolidation in the left lower lobe. There is also patchy airspace disease in the right lower lobe. HEART AND MEDIASTINUM: The heart is not enlarged. The hilar and mediastinal contours are within normal limits. SKELETAL STRUCTURES: The bony structures are within normal limits for the patient's age. VISUALIZED UPPER ABDOMEN: Normal. OTHER FINDINGS: None. IMPRESSION: Consolidation in the left lower lobe likely represents pneumonia. Suspect developing right lower lobe pneumonia. Follow-up after medical management is recommended to ensure complete resolution.
[2017-08-04] MEDS ORDERED: Piperacillin/Tazobact 3.375 GM in Sodium Chloride 0.9% 100 ML IVPB STA (17:51)
[2017-08-04] MEDS ORDERED: Tmp-Smz 800 mg-160 mg DS Tab PO STA ×2 (17:53→18:22)
[2017-08-04] MEDS ORDERED: Albuterol-Ipratrop 3 mg / 0.5 (3 ml) UD INH STA (18:00)
[2017-08-04] MEDS ORDERED: Promethazine/Cod 6.25mg-10mg/5ml Syr UD PO STA (18:01)
[2017-08-04] MEDS ORDERED: Azithromycin 500 MG in Sodium Chloride 0.9% 250 ML IVPB STA (18:12)
[2017-08-04] MEDS ORDERED: Piperacillin/Tazobact 3.375 gm Inj IVPB ONE (18:21)
[2017-08-04] MEDS ORDERED: Tmp-Smz 800 mg-160 mg DS Tab ONE ×2 (18:21→18:34)
[2017-08-04] MEDS ORDERED: Albuterol-Ipratrop 3 mg / 0.5 (3 ml) UD ONE (18:33)
[2017-08-04] MEDS ORDERED: Promethazine/Cod 6.25mg-10mg/5ml Syr UD ONE (18:33)
[2017-08-04 19:19] LABS: URINE BILIRUBIN NEGATIVE (NEGATIVE); URINE CLARITY Clear (Clear); URINE COLOR LIGHT YELLOW (YELLOW); URINE GLUCOSE (UA) NEGATIVE (Normal)
[2017-08-04 19:20] LABS: URINE BLOOD TRACE-INTACT (NEGATIVE); URINE LEUKOCYTE ESTERASE NEGATIVE Leu/uL (Negative); URINE PROTEIN TRACE mg/dL (NEGATIVE); URINE UROBILINOGEN 0.2 mg/dL (0.2-1.0)
[2017-08-04] MEDS ORDERED: Sodium Chloride 3% for Inhalation 4 ML VIAL.NEB IH PRN (19:23)
[2017-08-04 19:25] LABS: URINE BACTERIA RARE (<OCC)
--- NOTE | 2017-08-04 19:45 | CP.PCM.HP ---
History of Present Illness - History of Present Illness History of Present Illness: 47 year old undomiciled female with PMHx of HIV, Depression, Anxiety, obesity, prediabetes recently admitted in Psychiatry unit for suicide attempt in a setting of acute depressive episode, and discharged stable ( on 08/02/17) in PO antidepressants medications and f/u as outpatient presents to ED sent by PMD at [facility] coplaining of fevers, 102 F at the clinic, but she has had subjective fevers since Wednesday, associated with chills, productive cough with white- yellowish sputum production, and pleuritic chest pain. Also patient reports two episodes of watery non bloody diarrheas since today, denies abdominal pain, urinary symptoms, night sweats, dizziness, headaches, hemoptysis, hematuria. Denies suicidal and/or homicidal ideation at this evaluation. PMD: Azul Palomo Full Code Allergies: NKDA PMHx: HIV infection ( Admits she has not taken any HAART, but willing to resume HIV therapy), Anxiety, Depression, Social hx: Homeless, current smoker of 10 or less cigarettes per day, smoker since age 14 . HIV acquired through unprotected sex. Drinks ETOH approximately 6 pack twice per week. Use cocaine/last used was Wednesday. Family hx: Mother and brother w/ schizophrenia. Son bipolar. Both parents IV drug users (heroin) both from complications of AIDS. 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 Surgical Hx: C-sections x 3, lap band, cholecystectomy Meds: as per [facility] report ER course: VS:febrile 101/6, tachy, BP : 111/70, RR20/min, oxigen sat 99 % in room air PE: rales on auscultation of left lower lobe, no wheezing or rhonchi, no respiratory distress noted Labs: leukocytosis, microcytic hypochromic anemia, normal lactate in VBG, mild low K+ CXR: consolidation in the left lower lobe likely represents pneumonia, suspect developing right lower lobe pneumonia Treatment: -2 L of NS bolus -s/p azithromycin 500 mg IV in ER -s/p zosyn 3.375 gm IV in ER -s/p Bactrim 2 tab PO in ER -tylenol for fever Present on Admission - Present on Admission Any Indicators Present on Admission: No History of DVT/PE: No History of Uncontrolled Diabetes: No Urinary Catheter: No Decubitus Ulcer Present: No Review of Systems - Review of Systems All systems: reviewed and no additional remarkable complaints except (as per HPI ) Past Patient History - Infectious Disease Hx of Infectious Diseases: None - Past Social History Alcohol: None Drugs: Denies - CARDIAC Hx Hypertension: No - PULMONARY Hx Pneumonia: Yes Hx Tuberculosis: No - NEUROLOGICAL Hx Seizures: No - HEENT Hx HEENT Problems: No - RENAL Hx Chronic Kidney Disease: No - ENDOCRINE/METABOLIC Hx Endocrine Disorders: Yes - HEMATOLOGICAL/ONCOLOGICAL Hx Human Immunodeficiency Virus (HIV): Yes (unmedicated x 10 months) - INTEGUMENTARY Hx Dermatological Problems: No - MUSCULOSKELETAL/RHEUMATOLOGICAL Hx Musculoskeletal Disorders: No - GASTROINTESTINAL Hx Gastrointestinal Disorders: No - GENITOURINARY/GYNECOLOGICAL Hx Sexually Transmitted Disorders: No - PSYCHIATRIC Hx Anxiety: Yes Hx Bipolar Disorder: No (denies) Hx Depression: Yes - SURGICAL HISTORY Hx Cholecystectomy: Yes - ANESTHESIA Hx Anesthesia: Yes Meds Allergies/Adverse Reactions: Allergies Allergy/AdvReac Type Severity Reaction Status Date / Time No Known Allergies Allergy Verified 08/04/17 14:29 Physical Exam - Constitutional Appears: Non-toxic, No Acute Distress, Other (Appears Ill) Results - Vital Signs Recent Vital Signs: Last Vital Signs Temp 101.6 F H 08/04/17 19:17 Pulse 120 H 08/04/17 18:36 Resp 20 08/04/17 18:36 BP 111/70 08/04/17 18:36 Pulse Ox 99 08/04/17 18:36 - Labs Result Diagrams: 08/04/17 15:40 08/04/17 15:41 Labs: Laboratory Results - last 24 hr 08/04/17 08/04/17 08/04/17 15:14 15:40 15:41 WBC 13.5 H D RBC 4.21 Hgb 10.7 L Hct 32.1 L MCV 76.2 L MCH 25.5 L MCHC 33.4 RDW 14.6 H Plt Count 314 MPV 8.7 Neut % (Auto) 82.0 H Lymph % (Auto) 9.5 L [place] % (Auto) 7.6 Eos % (Auto) 0.0 Baso % (Auto) 0.9 Neut # (Auto) 11.1 H Lymph # (Auto) 1.3 [place] # (Auto) 1.0 H Eos # (Auto) 0.0 Baso # (Auto) 0.1 Neutrophils % (Manual) 74 Band Neutrophils % 5 H Lymphocytes % (Manual) 13 L Monocytes % (Manual) 8 Smudge Cells Present Platelet Estimate Normal Polychromasia Slight Hypochromasia (manual) Slight Poikilocytosis (manual Slight Anisocytosis (manual) Moderate Microcytosis (manual) Moderate Ovalocytes Slight PT INR APTT pO2 43 VBG pH 7.47 H VBG pCO2 32 L VBG HCO3 24.7 VBG Total CO2 24.3 VBG O2 Sat (Calc) 84.7 H VBG Base Excess 0.3 VBG Potassium 3.3 L Sodium 129.0 L 132 Chloride 97.0 L 94 L Glucose 90 Lactate 0.7 FiO2 21.0 Potassium 3.5 L Carbon Dioxide 22 Anion Gap 20 BUN 10 Creatinine 0.7 Est GFR ( Amer) > 60 Est GFR (Non-Af Amer) > 60 Random Glucose 90 Calcium 8.6 Phosphorus 4.2 Magnesium 1.7 Total Bilirubin 0.6 AST 33 ALT 8 L D Alkaline Phosphatase 96 Total Protein 10.2 H Albumin 3.9 Globulin 6.4 H Albumin/Globulin Ratio 0.6 L Venous Blood Potassium 3.3 L Urine Color Urine Clarity Urine pH Ur Specific [place] Urine Protein Urine Glucose (UA) Urine Ketones Urine Blood Urine Nitrate Urine Bilirubin Urine Urobilinogen Ur Leukocyte Esterase Urine RBC (Auto) Urine Microscopic WBC Ur Squamous Epith Cells Ur Transition Epith Cell Urine Bacteria Influenza Typ A,B (EIA) 08/04/17 08/04/17 08/04/17 15:41 15:41 18:10 WBC RBC Hgb Hct MCV MCH MCHC RDW Plt Count MPV Neut % (Auto) Lymph % (Auto) [place] % (Auto) Eos % (Auto) Baso % (Auto) Neut # (Auto) Lymph # (Auto) [place] # (Auto) Eos # (Auto) Baso # (Auto) Neutrophils % (Manual) Band Neutrophils % Lymphocytes % (Manual) Monocytes % (Manual) Smudge Cells Platelet Estimate Polychromasia Hypochromasia (manual) Poikilocytosis (manual Anisocytosis (manual) Microcytosis (manual) Ovalocytes PT 14.8 H INR 1.3 H APTT 27.8 pO2 VBG pH VBG pCO2 VBG HCO3 VBG Total CO2 VBG O2 Sat (Calc) VBG Base Excess VBG Potassium Sodium Chloride Glucose Lactate FiO2 Potassium Carbon Dioxide Anion Gap BUN Creatinine Est GFR ( Amer) Est GFR (Non-Af Amer) Random Glucose Calcium Phosphorus Magnesium Total Bilirubin AST ALT Alkaline Phosphatase Total Protein Albumin Globulin Albumin/Globulin Ratio Venous Blood Potassium Urine Color Light yellow Urine Clarity Clear Urine pH 6.0 Ur Specific [place] < 1.005 Urine Protein Trace Urine Glucose (UA) Negative Urine Ketones Negative Urine Blood Trace-intact Urine Nitrate Negative Urine Bilirubin Negative Urine Urobilinogen 0.2 Ur Leukocyte Esterase Negative Urine RBC (Auto) 0 Urine Microscopic WBC 0 Ur Squamous Epith Cells 3 Ur Transition Epith Cell 0 Urine Bacteria Rare Influenza Typ A,B (EIA) Negative for flu a/b Assessment & Plan - Assessment and Plan (Free Text) Assessment: 47 year old undomiciled female with PMHx including HIV, and Depression, recently discharged from hospital admission admitted with left lower lobe pneumonia, and suspicious of developing right lower lobe pneumonia. Plan: Left lower lobe Pneumonia -with suspect developing right lower lobe pneumonia in a recent hospitalization in a setting of positive HIV infection -Telemetry unit -HCAP vs CAP -febrile, leukocytosis on admission -recent hospitalization -oxygen supplementation via NC started at 2 LMP if oxygen sat < 94 % -f/u blood culture -f/u sputum culture -c/w acetaminophen PRN for fevers -c/w antibiotics for HCAP coverage -will discuss to continue with azithromycin for CAP coverage ( pt had similar respiratory symptoms prior to recent admission, but less severe) -Zosyn 4.5 GM IV Q6 -Vancomycin 1 gm IV Q12 -Mucinex DM for cough -no antibiotics adjustment at this time needed, GFR >60 -f/u CBC -f/u BMP, renal function -CXR: consolidation in the left lower lobe likely represents pneumonia, suspect developing right lower lobe pneumonia -s/p azithromycin 500 mg IV in ER -s/p zosyn 3.375 gm IV in ER -s/p Bactrim 2 tab PO in ER -ID consult by ED. Recommendations are appreciated Sepsis -most likely 2/2 Pneumonia, plus SIRS -febrile: 101.6 F, tachycardia: 120 -leukocytosis : 13.5 -SBP > 90 mmhg -s/p 2 L NS bolus in ER -c/w empiric antibiotics for HCAP -F/U BP for hypotension -ID consult by ED. Recommendations are appreciated HIV infection -without AIDS -not on medications for over 7 months -as per records, pt's lab from [facility] done 07/07/17 latest Cd4 count at at 399 with a viral load of 67,630 -No indication for prophylactic antibiotic therapy at this time -Pt is noncompliant with therapy, but states she will likely start once she feels better from her respiratory symptoms, and today resume her outpatient follow up with PMD at [facility]. Given risk of resistance, will not restart HAART while hospitalized. Microcytic Hypochromic Anemia -could represent iron deficiency anemia -no Iron studies noted in records -H/H: 10.7/32.1 -MCV low, high RDW -Iron studies Hypokalemia -mild -K+ 3.5 -POtassium 20 meq given in ER -f/u BMP in am Depression -stable -denies suicidal or homicidal ideation at this eval -resume home antidepressants as per Psych recs -monitor H/O prediabetes -last HgBA1C was 6.0 on 07/27/17 -patient requesting regular diet DVT prophylaxis -Encourage Ambulation -SCDs while in bed - Date & Time Date: 08/04/17 Time: 18:00
[2017-08-04 20:08] LABS: SQUAMOUS EPITHIAL 1 /hpf (0-5)
[2017-08-04] MEDS: guaiFENesin-DM 600-30 mg ER Tab PO SCH (20:39)
[2017-08-05] MEDS ORDERED: Piperacillin/Tazobact 4.5 GM in Sodium Chloride 0.9% 100 ML IVPB SCH ×2 (00:15)
[2017-08-05] MEDS ORDERED: Sodium Chloride 0.9% 500 ML IV ONE (02:24)
[2017-08-05 05:27] LABS: BASO % 0.3 % (0.0-2.0); EOS % 0.1 % (0.0-4.0); HEMOGLOBIN 9.6 g/dL (12.0-16.0); LYMPH % 8.4 % (20.0-40.0); MEAN CELL VOLUME 77.2 fl (81.0-99.0); MEAN CORPUSCULAR HEMOGLOBIN 24.6 pg (27.0-31.0); MEAN CORPUSCULAR HGB CONC 31.9 g/dL (33.0-37.0); MONO % 9.1 % (0.0-10.0); NEUT # 9.4 K/uL (1.8-7.0); NEUT % 82.1 % (50.0-75.0); RBC 3.88 Mil/uL (3.80-5.20); RED CELL DISTRIBUTION WIDTH 14.3 % (11.5-14.5); WHITE BLOOD COUNT 11.5 K/uL (4.8-10.8)
[2017-08-05 05:37] LABS: BLOOD UREA NITROGEN 12 mg/dl (7-17); CALCIUM 8.2 mg/dL (8.4-10.2); GFR AFRICAN-AMERICAN > 60; GFR NON-AFRICAN AMERICAN > 60; IRON 13 ug/dL (37-170)
[2017-08-05 05:46] LABS: % IRON SATURATION 5 % (20-55); TOTAL IRON BINDING CAPACITY 272 ug/dL (250-450)
[2017-08-05] MEDS ORDERED: Pneumococcal 23-Valent Vaccine IM ONE ×2 (06:00→09:00)
[2017-08-05] MEDS ORDERED: Influenza Vaccine 18yr & older 0.5 ML/45 MCG SYR IM ONE ×2 (06:00→09:00)
[2017-08-05 06:05] LABS: FERRITIN 79.7 ng/Ml (6.24-137.0)
[2017-08-05] MEDS: Piperacillin/Tazobact 4.5 GM in Sodium Chloride 0.9% 100 ML IVPB SCH ×4 (06:37→21:38)
[2017-08-05 08:49] LABS: BASO % 0.2 % (0.0-2.0); EOS % 0.2 % (0.0-4.0); HEMOGLOBIN 9.8 g/dL (12.0-16.0); LYMPH # 1.2 K/uL (1.0-4.3); LYMPH % 10.9 % (20.0-40.0); MEAN CELL VOLUME 76.4 fl (81.0-99.0); MEAN CORPUSCULAR HEMOGLOBIN 25.2 pg (27.0-31.0); MEAN PLATELET VOLUME 8.3 fl (7.2-11.7); MONO # 0.8 K/uL (0.0-0.8); MONO % 7.4 % (0.0-10.0); NEUT # 8.9 K/uL (1.8-7.0); NEUT % 81.3 % (50.0-75.0); NRBC % 0.1 % (0.0-0.0); RBC 3.9 Mil/uL (3.80-5.20); RED CELL DISTRIBUTION WIDTH 14.5 % (11.5-14.5)
[2017-08-05] MEDS ORDERED: levoFLOXacin 750 mg in D5W 150 ML BAG IVPB SCH (09:00)
[2017-08-05] MEDS: Sodium Chloride 0.9% 1,000 ML IV SCH ×3 (09:03→18:01)
[2017-08-05] MEDS: guaiFENesin-DM 600-30 mg ER Tab PO SCH ×2 (09:04→16:27)
[2017-08-05] MEDS: buPROPion SR 150 MG TABLET PO SCH (09:05)
--- NOTE | 2017-08-05 11:52 | CP.PCM.PN ---
Subjective - Date & Time of Evaluation Date of Evaluation: 08/05/17 Time of Evaluation: 08:00 - Subjective Subjective: Marialuisa was seen and examined at beside sitting in upright position eating breakfast. Pt reports significant improvement in shortness of breath. However, she reports some L thoracic discomfort with deep inspiration. Reports blood tinged sputum. Denies CP/SOB/N/V/dysuria, constipation or diarrhea. Objective - Vital Signs/Intake and Output Vital Signs (last 24 hours): Temp Pulse Resp BP Pulse Ox 98.5 F 109 H 18 98/61 L 94 L 08/05/17 07:57 08/05/17 07:57 08/05/17 07:57 08/05/17 07:57 08/05/17 07:57 - Medications Medications: Current Medications Acetaminophen (Tylenol 325mg Tab) 650 mg PO Q6 PRN PRN Reason: Fever >100.4 F Bupropion HCl (Wellbutrin Sr 150 Mg) 150 mg PO DAILY [facility] Last Admin: 08/05/17 09:05 Dose: 150 mg Gabapentin (Neurontin) 100 mg PO TID [facility] Last Admin: 08/05/17 09:05 Dose: 100 mg Guaifenesin/Dextromethorphan (Mucinex-Dm 600-30 Mg) 1 tab PO BID [facility] Last Admin: 08/05/17 09:04 Dose: 1 tab Vancomycin HCl 1 gm/ Sodium (Chloride) 250 mls @ 166.667 mls/hr IVPB Q12 ZORAIDA PRN Reason: Protocol Last Admin: 08/05/17 10:21 Dose: 166.667 mls/hr Piperacillin Sod/Tazobactam (Sod 4.5 gm/ Sodium Chloride) 100 mls @ 100 mls/hr IVPB Q6 ZORAIDA PRN Reason: Protocol Last Admin: 08/05/17 09:08 Dose: 100 mls/hr Sodium Chloride (Sodium Chloride 0.9%) 1,000 mls @ 200 mls/hr IV .Q5H [facility] Stop: 08/06/17 07:09 Last Admin: 08/05/17 09:03 Dose: 200 mls/hr Iron Sucrose 100 mg/ Sodium (Chloride) 105 mls @ 105 mls/hr IVPB DAILY [facility] Last Admin: 08/05/17 10:22 Dose: 105 mls/hr Ibuprofen (Motrin Tab) 400 mg PO Q6 PRN PRN Reason: Pain, moderate (4-7) Last Admin: 08/05/17 09:17 Dose: 400 mg Quetiapine Fumarate (Seroquel) 100 mg PO HS ZORAIDA Last Admin: 08/04/17 22:38 Dose: 100 mg - Labs Labs: 08/05/17 08:10 08/05/17 05:00 PT 14.8 Seconds (9.8-13.1) H 08/04/17 15:41 INR 1.3 (0.9-1.2) H 08/04/17 15:41 APTT 27.8 Seconds (25.6-37.1) 08/04/17 15:41 - Constitutional Appears: Well, No Acute Distress - Eye Exam Eye Exam: EOMI - ENT Exam ENT Exam: Mucous Membranes Moist - Neck Exam Neck Exam: Full ROM - Respiratory Exam Respiratory Exam: Clear to Ausculation Bilateral, NORMAL BREATHING PATTERN. absent: Wheezes, Respiratory Distress - Cardiovascular Exam Cardiovascular Exam: REGULAR RHYTHM, +S1, +S2 - GI/Abdominal Exam GI & Abdominal Exam: Soft, Normal Bowel Sounds. absent: Tenderness - Extremities Exam Extremities Exam: Full ROM. absent: Calf Tenderness - Back Exam Back Exam: absent: CVA tenderness (L), CVA tenderness (R) - Neurological Exam Neurological Exam: Alert, Awake, CN II-XII Intact, Oriented x3 - Psychiatric Exam Psychiatric exam: Normal Affect, Normal Mood Assessment and Plan - Assessment and Plan (Free Text) Plan: 47 year old undomiciled female with PMHx including HIV, and Depression, recently discharged from hospital admission admitted with left lower lobe pneumonia, and suspicious of developing right lower lobe pneumonia. Left lower lobe Pneumonia -with suspect developing right lower lobe pneumonia in a recent hospitalization in a setting of positive HIV infection -HCAP vs CAP -febrile, leukocytosis on admission: resolved -recent hospitalization -CXR: consolidation in the left lower lobe likely represents pneumonia, suspect developing right lower lobe pneumonia -s/p azithromycin 500 mg IV in ER -s/p zosyn 3.375 gm IV in ER -s/p Bactrim 2 tab PO in ER -c/w acetaminophen PRN for fevers -Zosyn 4.5 GM IV Q6 -Vancomycin 1 gm IV Q12 -Mucinex DM for cough -f/u blood culture -f/u sputum culture -ID consult: Dr. Mccartney. Recommendations are appreciated Sepsis -most likely 2/2 Pneumonia, plus SIRS -febrile: 101.6 F, tachycardia: 120 -leukocytosis : 13.5 -SBP > 90 mmhg -s/p 2 L NS bolus in ER -c/w empiric antibiotics for HCAP -F/U BP for hypotension -ID consulted HIV infection; asymptomatic -without AIDS -not on medications for over 7 months -as per records, pt's lab from [facility] done 07/07/17 latest Cd4 count at at 399 with a viral load of 67,630 -No indication for prophylactic antibiotic therapy at this time -Pt is noncompliant with therapy, but states she will likely start once she feels better from her respiratory symptoms, and today resume her outpatient follow up with PMD at [facility]. Given risk of resistance, will not restart HAART while hospitalized. -Per Dr. Franklin: f/u: immunofixation serum, urine Microcytic Hypochromic Anemia -H/H: 9.8/29.8; MCV: 76.4 high RDW -Iron studies: Fe: 13L; TIBC: 272; Ferritin: 79.7 - Venofer 100 mg Hypokalemia -mild; -K+ 3.5 -POtassium 20 meq given in ER -f/u K: 3.7 Depression -stable -denies suicidal or homicidal ideation at this eval -resume home antidepressants as per Psych recs -monitor H/O prediabetes -last HgBA1C was 6.0 on 07/27/17 -patient requesting regular diet DVT prophylaxis -Encourage Ambulation -SCDs while in bed
--- NOTE | 2017-08-05 12:09 | CP.PCM.CON ---
History of Present Illness - History of Present Illness History of Present Illness: Infectious Disease Consultation Note- ASked to see this patient at the request of family practice team for pneumonia. HPI- Darlene is a 47 year old female with HIV f/u at [facility] , depression, anxiety who is admitted with fever , cough chest congestion and found to have pneumonia on cxr and febrile on admission. Patient she was recently in psych unit here for suicidal ideation and depression and during that admission last week she had couple episodes of fever but resolved with ibuprofen and was started on antidepressants and felt better but few days after d/c she felt fever again and saw her pmd at [facility] and she had fever there and hence was admitted here. she denies any night swetas or any hemoptysis. she states she feels better today. her breathing is better today. she sattes she has not taken her HAARt meds for past 7 months but states her CD4 and VL were good prior to that. PMD: Azul Palomo Full Code Allergies: NKDA PMHx: HIV infection ( Admits she has not taken any HAART, but willing to resume HIV therapy), Anxiety, Depression, Social hx: Homeless, current smoker of 10 or less cigarettes per day, smoker since age 14 . HIV acquired through unprotected sex. Drinks ETOH approximately 6 pack twice per week. Use cocaine/last used was Wednesday. Family hx: Mother and brother w/ schizophrenia. Son bipolar. Both parents IV drug users (heroin) both from complications of AIDS. [employer]: 3 c/s, LMP 3.21.18 Surgical Hx: C-sections x 3, lap band, cholecystectomy Meds: as per [facility] report CXR: consolidation in the left lower lobe likely represents pneumonia, suspect developing right lower lobe pneumonia Treatment: Review of Systems - Review of Systems Review of Systems: ROS- + fever on admission , + cough productive of yellow phlegm, denies any hemoptysis, denies any weight loss, denies any night sweats, denies any nausea or vomiting, denies any dysurea, denies any diarrhea was recently hospitalized Past Patient History - Infectious Disease Hx of Infectious Diseases: None - Past Medical History & Family History Past Medical History?: Yes - Past Social History Smoking Status: Heavy Smoker > 10 Cigarettes Daily Alcohol: None Drugs: Denies - CARDIAC Hx Hypertension: No - PULMONARY Hx Pneumonia: Yes Hx Tuberculosis: No - NEUROLOGICAL Hx Seizures: No - HEENT Hx HEENT Problems: No - RENAL Hx Chronic Kidney Disease: No - ENDOCRINE/METABOLIC Hx Endocrine Disorders: Yes - HEMATOLOGICAL/ONCOLOGICAL Hx Human Immunodeficiency Virus (HIV): Yes (unmedicated x 10 months) - INTEGUMENTARY Hx Dermatological Problems: No - MUSCULOSKELETAL/RHEUMATOLOGICAL Hx Musculoskeletal Disorders: No - GASTROINTESTINAL Hx Gastrointestinal Disorders: No - GENITOURINARY/GYNECOLOGICAL Hx Sexually Transmitted Disorders: No - PSYCHIATRIC Hx Anxiety: Yes Hx Bipolar Disorder: No (denies) Hx Depression: Yes - SURGICAL HISTORY Hx Cholecystectomy: Yes - ANESTHESIA Hx Anesthesia: Yes Meds Allergies/Adverse Reactions: Allergies Allergy/AdvReac Type Severity Reaction Status Date / Time No Known Allergies Allergy Verified 08/04/17 14:29 - Medications Medications: Current Medications Acetaminophen (Tylenol 325mg Tab) 650 mg PO Q6 PRN PRN Reason: Fever >100.4 F Bupropion HCl (Wellbutrin Sr 150 Mg) 150 mg PO DAILY [facility] Last Admin: 08/05/17 09:05 Dose: 150 mg Gabapentin (Neurontin) 100 mg PO TID [facility] Last Admin: 08/05/17 09:05 Dose: 100 mg Guaifenesin/Dextromethorphan (Mucinex-Dm 600-30 Mg) 1 tab PO BID [facility] Last Admin: 08/05/17 09:04 Dose: 1 tab Vancomycin HCl 1 gm/ Sodium (Chloride) 250 mls @ 166.667 mls/hr IVPB Q12 [facility] PRN Reason: Protocol Last Admin: 08/05/17 10:21 Dose: 166.667 mls/hr Piperacillin Sod/Tazobactam (Sod 4.5 gm/ Sodium Chloride) 100 mls @ 100 mls/hr IVPB Q6 ZORAIDA PRN Reason: Protocol Last Admin: 08/05/17 09:08 Dose: 100 mls/hr Sodium Chloride (Sodium Chloride 0.9%) 1,000 mls @ 200 mls/hr IV .Q5H [facility] Stop: 08/06/17 07:09 Last Admin: 08/05/17 09:03 Dose: 200 mls/hr Iron Sucrose 100 mg/ Sodium (Chloride) 105 mls @ 105 mls/hr IVPB DAILY [facility] Last Admin: 08/05/17 10:22 Dose: 105 mls/hr Ibuprofen (Motrin Tab) 400 mg PO Q6 PRN PRN Reason: Pain, moderate (4-7) Last Admin: 08/05/17 09:17 Dose: 400 mg Quetiapine Fumarate (Seroquel) 100 mg PO HS [facility] Last Admin: 08/04/17 22:38 Dose: 100 mg Physical Exam - Constitutional Appears: No Acute Distress - Head Exam Head Exam: ATRAUMATIC - Eye Exam Eye Exam: EOMI, PERRL - Neck Exam Neck exam: Positive for: Full Rom - Respiratory Exam Respiratory Exam: NORMAL BREATHING PATTERN Additional comments: coarse breath sounds b/l no wheezing thick cough - Cardiovascular Exam Cardiovascular Exam: RRR, +S1, +S2 - GI/Abdominal Exam GI & Abdominal Exam: Normal Bowel Sounds, Soft Additional comments: NT, ND - Extremities Exam Extremities exam: Positive for: normal inspection - Neurological Exam Neurological exam: Alert, Oriented x3 Results - Vital Signs Recent Vital Signs: Last Vital Signs Temp 98.2 F 08/05/17 11:52 Pulse 84 08/05/17 11:52 Resp 18 08/05/17 11:52 BP 102/60 08/05/17 11:52 Pulse Ox 97 08/05/17 11:52 - Labs Result Diagrams: 08/05/17 08:10 08/05/17 05:00 Labs: Laboratory Results - last 24 hr 08/04/17 08/04/17 08/04/17 15:14 15:40 15:41 WBC 13.5 H D RBC 4.21 Hgb 10.7 L Hct 32.1 L MCV 76.2 L MCH 25.5 L MCHC 33.4 RDW 14.6 H Plt Count 314 MPV 8.7 Neut % (Auto) 82.0 H Lymph % (Auto) 9.5 L [place] % (Auto) 7.6 Eos % (Auto) 0.0 Baso % (Auto) 0.9 Neut # (Auto) 11.1 H Lymph # (Auto) 1.3 [place] # (Auto) 1.0 H Eos # (Auto) 0.0 Baso # (Auto) 0.1 Neutrophils % (Manual) 74 Band Neutrophils % 5 H Lymphocytes % (Manual) 13 L Monocytes % (Manual) 8 Smudge Cells Present Platelet Estimate Normal Polychromasia Slight Hypochromasia (manual) Slight Poikilocytosis (manual Slight Anisocytosis (manual) Moderate Microcytosis (manual) Moderate Ovalocytes Slight Retic Count PT INR APTT pO2 43 VBG pH 7.47 H VBG pCO2 32 L VBG HCO3 24.7 VBG Total CO2 24.3 VBG O2 Sat (Calc) 84.7 H VBG Base Excess 0.3 VBG Potassium 3.3 L Sodium 129.0 L 132 Chloride 97.0 L 94 L Glucose 90 Lactate 0.7 FiO2 21.0 Potassium 3.5 L Carbon Dioxide 22 Anion Gap 20 BUN 10 Creatinine 0.7 Est GFR ( Amer) > 60 Est GFR (Non-Af Amer) > 60 Random Glucose 90 Calcium 8.6 Phosphorus 4.2 Magnesium 1.7 Iron TIBC % Saturation Ferritin Total Bilirubin 0.6 AST 33 ALT 8 L D Alkaline Phosphatase 96 Lactate Dehydrogenase Total Protein 10.2 H Albumin 3.9 Globulin 6.4 H Albumin/Globulin Ratio 0.6 L Venous Blood Potassium 3.3 L Urine Color Urine Clarity Urine pH Ur Specific [place] Urine Protein Urine Glucose (UA) Urine Ketones Urine Blood Urine Nitrate Urine Bilirubin Urine Urobilinogen Ur Leukocyte Esterase Urine RBC (Auto) Urine Microscopic WBC Ur Squamous Epith Cells Ur Transition Epith Cell Urine Bacteria Influenza Typ A,B (EIA) 08/04/17 08/04/17 08/04/17 15:41 15:41 18:10 WBC RBC Hgb Hct MCV MCH MCHC RDW Plt Count MPV Neut % (Auto) Lymph % (Auto) [place] % (Auto) Eos % (Auto) Baso % (Auto) Neut # (Auto) Lymph # (Auto) [place] # (Auto) Eos # (Auto) Baso # (Auto) Neutrophils % (Manual) Band Neutrophils % Lymphocytes % (Manual) Monocytes % (Manual) Smudge Cells Platelet Estimate Polychromasia Hypochromasia (manual) Poikilocytosis (manual Anisocytosis (manual) Microcytosis (manual) Ovalocytes Retic Count PT 14.8 H INR 1.3 H APTT 27.8 pO2 VBG pH VBG pCO2 VBG HCO3 VBG Total CO2 VBG O2 Sat (Calc) VBG Base Excess VBG Potassium Sodium Chloride Glucose Lactate FiO2 Potassium Carbon Dioxide Anion Gap BUN Creatinine Est GFR ( Amer) Est GFR (Non-Af Amer) Random Glucose Calcium Phosphorus Magnesium Iron TIBC % Saturation Ferritin Total Bilirubin AST ALT Alkaline Phosphatase Lactate Dehydrogenase Total Protein Albumin Globulin Albumin/Globulin Ratio Venous Blood Potassium Urine Color Light yellow Urine Clarity Clear Urine pH 6.0 Ur Specific [place] < 1.005 Urine Protein Trace Urine Glucose (UA) Negative Urine Ketones Negative Urine Blood Trace-intact Urine Nitrate Negative Urine Bilirubin Negative Urine Urobilinogen 0.2 Ur Leukocyte Esterase Negative Urine RBC (Auto) 2 Urine Microscopic WBC 2 Ur Squamous Epith Cells 1 Ur Transition Epith Cell 0 Urine Bacteria Rare Influenza Typ A,B (EIA) Negative for flu a/b 08/05/17 08/05/17 08/05/17 05:00 05:00 05:00 WBC 11.5 H RBC 3.88 Hgb 9.6 L Hct 30.0 L MCV 77.2 L MCH 24.6 L MCHC 31.9 L RDW 14.3 Plt Count 240 MPV 8.0 Neut % (Auto) 82.1 H Lymph % (Auto) 8.4 L [place] % (Auto) 9.1 Eos % (Auto) 0.1 Baso % (Auto) 0.3 Neut # (Auto) 9.4 H Lymph # (Auto) 1.0 [place] # (Auto) 1.0 H Eos # (Auto) 0.0 Baso # (Auto) 0.0 Neutrophils % (Manual) Band Neutrophils % Lymphocytes % (Manual) Monocytes % (Manual) Smudge Cells Platelet Estimate Polychromasia Hypochromasia (manual) Poikilocytosis (manual Anisocytosis (manual) Microcytosis (manual) Ovalocytes Retic Count PT INR APTT pO2 VBG pH VBG pCO2 VBG HCO3 VBG Total CO2 VBG O2 Sat (Calc) VBG Base Excess VBG Potassium Sodium 139 Chloride 106 Glucose Lactate FiO2 Potassium 3.7 Carbon Dioxide 20 L Anion Gap 17 BUN 12 Creatinine 0.7 Est GFR ( Amer) > 60 Est GFR (Non-Af Amer) > 60 Random Glucose 88 Calcium 8.2 L Phosphorus Magnesium Iron 13 L TIBC 272 % Saturation 5 L Ferritin 79.7 Total Bilirubin AST ALT Alkaline Phosphatase Lactate Dehydrogenase Total Protein Albumin Globulin Albumin/Globulin Ratio Venous Blood Potassium Urine Color Urine Clarity Urine pH Ur Specific [place] Urine Protein Urine Glucose (UA) Urine Ketones Urine Blood Urine Nitrate Urine Bilirubin Urine Urobilinogen Ur Leukocyte Esterase Urine RBC (Auto) Urine Microscopic WBC Ur Squamous Epith Cells Ur Transition Epith Cell Urine Bacteria Influenza Typ A,B (EIA) 08/05/17 08/05/17 08:10 08:10 WBC 11.0 H RBC 3.90 Hgb 9.8 L Hct 29.8 L MCV 76.4 L MCH 25.2 L MCHC 33.0 RDW 14.5 Plt Count 256 MPV 8.3 Neut % (Auto) 81.3 H Lymph % (Auto) 10.9 L [place] % (Auto) 7.4 Eos % (Auto) 0.2 Baso % (Auto) 0.2 Neut # (Auto) 8.9 H Lymph # (Auto) 1.2 [place] # (Auto) 0.8 Eos # (Auto) 0.0 Baso # (Auto) 0.0 Neutrophils % (Manual) Band Neutrophils % Lymphocytes % (Manual) Monocytes % (Manual) Smudge Cells Platelet Estimate Polychromasia Hypochromasia (manual) Poikilocytosis (manual Anisocytosis (manual) Microcytosis (manual) Ovalocytes Retic Count 0.8 PT INR APTT pO2 VBG pH VBG pCO2 VBG HCO3 VBG Total CO2 VBG O2 Sat (Calc) VBG Base Excess VBG Potassium Sodium Chloride Glucose Lactate FiO2 Potassium Carbon Dioxide Anion Gap BUN Creatinine Est GFR ( Amer) Est GFR (Non-Af Amer) Random Glucose Calcium Phosphorus Magnesium Iron TIBC % Saturation Ferritin Total Bilirubin AST ALT Alkaline Phosphatase Lactate Dehydrogenase 359 Total Protein Albumin Globulin Albumin/Globulin Ratio Venous Blood Potassium Urine Color Urine Clarity Urine pH Ur Specific [place] Urine Protein Urine Glucose (UA) Urine Ketones Urine Blood Urine Nitrate Urine Bilirubin Urine Urobilinogen Ur Leukocyte Esterase Urine RBC (Auto) Urine Microscopic WBC Ur Squamous Epith Cells Ur Transition Epith Cell Urine Bacteria Influenza Typ A,B (EIA) Laboratory Results - last 72 hr 08/04/17 08/04/17 08/04/17 15:14 15:40 15:41 WBC 13.5 H D RBC 4.21 Hgb 10.7 L Hct 32.1 L MCV 76.2 L MCH 25.5 L MCHC 33.4 RDW 14.6 H Plt Count 314 MPV 8.7 Neut % (Auto) 82.0 H Lymph % (Auto) 9.5 L [place] % (Auto) 7.6 Eos % (Auto) 0.0 Baso % (Auto) 0.9 Neut # (Auto) 11.1 H Lymph # (Auto) 1.3 [place] # (Auto) 1.0 H Eos # (Auto) 0.0 Baso # (Auto) 0.1 Neutrophils % (Manual) 74 Band Neutrophils % 5 H Lymphocytes % (Manual) 13 L Monocytes % (Manual) 8 Smudge Cells Present Platelet Estimate Normal Polychromasia Slight Hypochromasia (manual) Slight Poikilocytosis (manual Slight Anisocytosis (manual) Moderate Microcytosis (manual) Moderate Ovalocytes Slight Retic Count PT INR APTT pO2 43 VBG pH 7.47 H VBG pCO2 32 L VBG HCO3 24.7 VBG Total CO2 24.3 VBG O2 Sat (Calc) 84.7 H VBG Base Excess 0.3 VBG Potassium 3.3 L Sodium 129.0 L 132 Chloride 97.0 L 94 L Glucose 90 Lactate 0.7 FiO2 21.0 Potassium 3.5 L Carbon Dioxide 22 Anion Gap 20 BUN 10 Creatinine 0.7 Est GFR ( Amer) > 60 Est GFR (Non-Af Amer) > 60 Random Glucose 90 Calcium 8.6 Phosphorus 4.2 Magnesium 1.7 Iron TIBC % Saturation Transferrin Ferritin Total Bilirubin 0.6 AST 33 ALT 8 L D Alkaline Phosphatase 96 Lactate Dehydrogenase Total Protein 10.2 H Albumin 3.9 Globulin 6.4 H Albumin/Globulin Ratio 0.6 L Venous Blood Potassium 3.3 L Urine Color Urine Clarity Urine pH Ur Specific [place] Urine Protein Urine Glucose (UA) Urine Ketones Urine Blood Urine Nitrate Urine Bilirubin Urine Urobilinogen Ur Leukocyte Esterase Urine RBC (Auto) Urine Microscopic WBC Ur Squamous Epith Cells Ur Transition Epith Cell Urine Bacteria Influenza Typ A,B (EIA) 08/04/17 08/04/17 08/04/17 15:41 15:41 18:10 WBC RBC Hgb Hct MCV MCH MCHC RDW Plt Count MPV Neut % (Auto) Lymph % (Auto) [place] % (Auto) Eos % (Auto) Baso % (Auto) Neut # (Auto) Lymph # (Auto) [place] # (Auto) Eos # (Auto) Baso # (Auto) Neutrophils % (Manual) Band Neutrophils % Lymphocytes % (Manual) Monocytes % (Manual) Smudge Cells Platelet Estimate Polychromasia Hypochromasia (manual) Poikilocytosis (manual Anisocytosis (manual) Microcytosis (manual) Ovalocytes Retic Count PT 14.8 H INR 1.3 H APTT 27.8 pO2 VBG pH VBG pCO2 VBG HCO3 VBG Total CO2 VBG O2 Sat (Calc) VBG Base Excess VBG Potassium Sodium Chloride Glucose Lactate FiO2 Potassium Carbon Dioxide Anion Gap BUN Creatinine Est GFR ( Amer) Est GFR (Non-Af Amer) Random Glucose Calcium Phosphorus Magnesium Iron TIBC % Saturation Transferrin Ferritin Total Bilirubin AST ALT Alkaline Phosphatase Lactate Dehydrogenase Total Protein Albumin Globulin Albumin/Globulin Ratio Venous Blood Potassium Urine Color Light yellow Urine Clarity Clear Urine pH 6.0 Ur Specific [place] < 1.005 Urine Protein Trace Urine Glucose (UA) Negative Urine Ketones Negative Urine Blood Trace-intact Urine Nitrate Negative Urine Bilirubin Negative Urine Urobilinogen 0.2 Ur Leukocyte Esterase Negative Urine RBC (Auto) 2 Urine Microscopic WBC 2 Ur Squamous Epith Cells 1 Ur Transition Epith Cell 0 Urine Bacteria Rare Influenza Typ A,B (EIA) Negative for flu a/b 08/05/17 08/05/17 08/05/17 05:00 05:00 05:00 WBC 11.5 H RBC 3.88 Hgb 9.6 L Hct 30.0 L MCV 77.2 L MCH 24.6 L MCHC 31.9 L RDW 14.3 Plt Count 240 MPV 8.0 Neut % (Auto) 82.1 H Lymph % (Auto) 8.4 L [place] % (Auto) 9.1 Eos % (Auto) 0.1 Baso % (Auto) 0.3 Neut # (Auto) 9.4 H Lymph # (Auto) 1.0 [place] # (Auto) 1.0 H Eos # (Auto) 0.0 Baso # (Auto) 0.0 Neutrophils % (Manual) Band Neutrophils % Lymphocytes % (Manual) Monocytes % (Manual) Smudge Cells Platelet Estimate Polychromasia Hypochromasia (manual) Poikilocytosis (manual Anisocytosis (manual) Microcytosis (manual) Ovalocytes Retic Count PT INR APTT pO2 VBG pH VBG pCO2 VBG HCO3 VBG Total CO2 VBG O2 Sat (Calc) VBG Base Excess VBG Potassium Sodium 139 Chloride 106 Glucose Lactate FiO2 Potassium 3.7 Carbon Dioxide 20 L Anion Gap 17 BUN 12 Creatinine 0.7 Est GFR ( Amer) > 60 Est GFR (Non-Af Amer) > 60 Random Glucose 88 Calcium 8.2 L Phosphorus Magnesium Iron 13 L TIBC 272 % Saturation 5 L Transferrin Ferritin 79.7 Total Bilirubin AST ALT Alkaline Phosphatase Lactate Dehydrogenase Total Protein Albumin Globulin Albumin/Globulin Ratio Venous Blood Potassium Urine Color Urine Clarity Urine pH Ur Specific [place] Urine Protein Urine Glucose (UA) Urine Ketones Urine Blood Urine Nitrate Urine Bilirubin Urine Urobilinogen Ur Leukocyte Esterase Urine RBC (Auto) Urine Microscopic WBC Ur Squamous Epith Cells Ur Transition Epith Cell Urine Bacteria Influenza Typ A,B (EIA) 08/05/17 08/05/17 08/05/17 05:00 08:10 08:10 WBC 11.0 H RBC 3.90 Hgb 9.8 L Hct 29.8 L MCV 76.4 L MCH 25.2 L MCHC 33.0 RDW 14.5 Plt Count 256 MPV 8.3 Neut % (Auto) 81.3 H Lymph % (Auto) 10.9 L [place] % (Auto) 7.4 Eos % (Auto) 0.2 Baso % (Auto) 0.2 Neut # (Auto) 8.9 H Lymph # (Auto) 1.2 [place] # (Auto) 0.8 Eos # (Auto) 0.0 Baso # (Auto) 0.0 Neutrophils % (Manual) Band Neutrophils % Lymphocytes % (Manual) Monocytes % (Manual) Smudge Cells Platelet Estimate Polychromasia Hypochromasia (manual) Poikilocytosis (manual Anisocytosis (manual) Microcytosis (manual) Ovalocytes Retic Count 0.8 PT INR APTT pO2 VBG pH VBG pCO2 VBG HCO3 VBG Total CO2 VBG O2 Sat (Calc) VBG Base Excess VBG Potassium Sodium Chloride Glucose Lactate FiO2 Potassium Carbon Dioxide Anion Gap BUN Creatinine Est GFR ( Amer) Est GFR (Non-Af Amer) Random Glucose Calcium Phosphorus Magnesium Iron TIBC % Saturation Transferrin 193.97 L Ferritin Total Bilirubin AST ALT Alkaline Phosphatase Lactate Dehydrogenase 359 Total Protein Albumin Globulin Albumin/Globulin Ratio Venous Blood Potassium Urine Color Urine Clarity Urine pH Ur Specific [place] Urine Protein Urine Glucose (UA) Urine Ketones Urine Blood Urine Nitrate Urine Bilirubin Urine Urobilinogen Ur Leukocyte Esterase Urine RBC (Auto) Urine Microscopic WBC Ur Squamous Epith Cells Ur Transition Epith Cell Urine Bacteria Influenza Typ A,B (EIA) Microbiology 08/04/17 15:45 Blood Blood Culture - Preliminary NO GROWTH AFTER 24 HOURS 08/04/17 15:05 Blood Blood Culture - Preliminary NO GROWTH AFTER 24 HOURS Accession No. : [id number] Patient Name / ID : VICTOR MANUEL VELEZ / [id number] Exam Date : 08/04/2017 16:41:25 ( Approved ) Study Comment : Sex / Age : F / [id number] Creator : Lesli Marinelli MD Dictator : Lesli Marinelli MD Content Engineer : Under Water Assistant : Lesli Marinelli MD Approver2 : Report Date : 08/04/2017 17:22:44 My Comment : HISTORY: COMPARISON: 07/26/2017. TECHNIQUE: Chest PA and lateral FINDINGS: LINES AND TUBES: None. LUNG AND PLEURA: The lungs are hyperinflated and there is peribronchial thickening with chronic changes in both lungs. There is consolidation in the left lower lobe. There is also patchy airspace disease in the right lower lobe. HEART AND MEDIASTINUM: The heart is not enlarged. The hilar and mediastinal contours are within normal limits. SKELETAL STRUCTURES: The bony structures are within normal limits for the patient's age. VISUALIZED UPPER ABDOMEN: Normal. OTHER FINDINGS: None. IMPRESSION: Consolidation in the left lower lobe likely represents pneumonia. Suspect developing right lower lobe pneumonia. Follow-up after medical management is recommended to ensure complete resolution. Assessment & Plan (1) Pneumonia Status: Acute (2) HIV (human immunodeficiency virus infection) Status: Chronic (3) Cough Status: Acute (4) Fever Status: Acute - Assessment and Plan (Free Text) Assessment: A/P- 47 year old HIV positive female admitted with fever, cough found to have pneumonia on cxr. in light of recent hospitalization certainly would advise to cover with broad spectrum antibiotics to cover for HAP. as per records from [facility] done 07/07/17 latest Cd4 count at at 399 with a viral load of 67,630hence no suspicion of opportunistic infections although PCP can present with higher CD4 as well sometimes. afebrile now. leukocytosis trending down blood cx- neg x 1 plan- check CD4 and VL now and Genotype. check sputum cx. check mycoplasma serology. check urine legionella AG. check blood cx x2. agree with IV zosyn and vanco to cover for HAP. advise to also add oral zithromax ro cover for atypicals. advise to also include bactrim DS daily . All above d/w patient and she verbalizes full understanding of all above and agrees with above plan of care. All above also d/w family practice team. Thank you fro allowing me to take part in the care of this patient.
[2017-08-05] MEDS: Petrolatum UD PAK TOP SCH ×3 (16:27→20:06)
[2017-08-05] MEDS: Tmp-Smz 800 mg-160 mg DS Tab PO SCH (17:58)
[2017-08-06] MEDS: Sodium Chloride 0.9% 1,000 ML IV SCH ×2 (00:14→04:18)
[2017-08-06] MEDS: Petrolatum UD PAK TOP SCH ×5 (00:14→21:16)
[2017-08-06] MEDS: Piperacillin/Tazobact 4.5 GM in Sodium Chloride 0.9% 100 ML IVPB SCH ×4 (04:16→21:17)
[2017-08-06 05:49] LABS: HEMOGLOBIN 9.1 g/dL (12.0-16.0); MEAN CELL VOLUME 78.1 fl (81.0-99.0); MEAN CORPUSCULAR HEMOGLOBIN 25.1 pg (27.0-31.0); MEAN CORPUSCULAR HGB CONC 32.2 g/dL (33.0-37.0); RBC 3.61 Mil/uL (3.80-5.20); RED CELL DISTRIBUTION WIDTH 14.8 % (11.5-14.5); WHITE BLOOD COUNT 4.8 K/uL (4.8-10.8)
[2017-08-06 06:22] LABS: BLOOD UREA NITROGEN 7 mg/dl (7-17); CALCIUM 8.1 mg/dL (8.4-10.2); GFR AFRICAN-AMERICAN > 60; GFR NON-AFRICAN AMERICAN > 60
[2017-08-06] MEDS: buPROPion SR 150 MG TABLET PO SCH (08:46)
[2017-08-06] MEDS: guaiFENesin-DM 600-30 mg ER Tab PO SCH ×2 (08:46→16:43)
[2017-08-06] MEDS: Tmp-Smz 800 mg-160 mg DS Tab PO SCH (08:46)
--- NOTE | 2017-08-06 11:17 | CP.PCM.PN ---
Subjective - Date & Time of Evaluation Date of Evaluation: 08/06/17 Time of Evaluation: 14:00 - Subjective Subjective: ID Note- pt. states she is feeling much better today and her breathing is much improved. Objective - Vital Signs/Intake and Output Vital Signs (last 24 hours): Temp Pulse Resp BP Pulse Ox 98.0 F 76 20 107/64 95 08/06/17 08:27 08/06/17 08:27 08/06/17 08:27 08/06/17 08:27 08/06/17 08:27 - Medications Medications: Current Medications Acetaminophen (Tylenol 325mg Tab) 650 mg PO Q6 PRN PRN Reason: Fever >100.4 F Azithromycin (Zithromax) 500 mg PO DAILY [facility] PRN Reason: Protocol Last Admin: 08/06/17 08:46 Dose: 500 mg Bupropion HCl (Wellbutrin Sr 150 Mg) 150 mg PO DAILY [facility] Last Admin: 08/06/17 08:46 Dose: 150 mg Calcium/Vitamin D (Oyster Shell Calcium/Vitamin D 500 Mg-200 Iu) 1 tab PO DAILY [facility] Emollient Ointment (Vaseline Oint) 1 pkt TOP Q4 [facility] Last Admin: 08/06/17 08:47 Dose: 1 pkt Gabapentin (Neurontin) 100 mg PO TID [facility] Last Admin: 08/06/17 08:46 Dose: 100 mg Guaifenesin/Dextromethorphan (Mucinex-Dm 600-30 Mg) 1 tab PO BID [facility] Last Admin: 08/06/17 08:46 Dose: 1 tab Vancomycin HCl 1 gm/ Sodium (Chloride) 250 mls @ 166.667 mls/hr IVPB Q12 [facility] PRN Reason: Protocol Last Admin: 08/06/17 08:47 Dose: 166.667 mls/hr Piperacillin Sod/Tazobactam (Sod 4.5 gm/ Sodium Chloride) 100 mls @ 100 mls/hr IVPB Q6 [facility] PRN Reason: Protocol Last Admin: 08/06/17 09:02 Dose: 100 mls/hr Iron Sucrose 100 mg/ Sodium (Chloride) 105 mls @ 105 mls/hr IVPB DAILY [facility] Last Admin: 08/06/17 10:53 Dose: 105 mls/hr Ibuprofen (Motrin Tab) 400 mg PO Q6 PRN PRN Reason: Pain, moderate (4-7) Last Admin: 08/05/17 09:17 Dose: 400 mg Quetiapine Fumarate (Seroquel) 100 mg PO HS [facility] Last Admin: 08/05/17 21:38 Dose: 100 mg Trimethoprim/Sulfamethoxazole (Bactrim Ds Tab) 1 tab PO DAILY [facility] PRN Reason: Protocol Last Admin: 08/06/17 08:46 Dose: 1 tab - Labs Labs: - Additional Findings Additional findings: - Constitutional Appears: No Acute Distress - Head Exam Head Exam: ATRAUMATIC - Eye Exam Eye Exam: EOMI, PERRL - Neck Exam Neck exam: Positive for: Full Rom - Respiratory Exam Respiratory Exam: NORMAL BREATHING PATTERN Additional comments: coarse breath sounds b/l but less than yesterday no wheezing - Cardiovascular Exam Cardiovascular Exam: RRR, +S1, +S2 - GI/Abdominal Exam GI & Abdominal Exam: Normal Bowel Sounds, Soft Additional comments: NT, ND - Extremities Exam Extremities exam: Positive for: normal inspection - Neurological Exam Neurological exam: Alert, Oriented x 3 Laboratory Results - last 72 hr 08/04/17 08/04/17 08/04/17 15:14 15:40 15:41 WBC 13.5 H D RBC 4.21 Hgb 10.7 L Hct 32.1 L MCV 76.2 L MCH 25.5 L MCHC 33.4 RDW 14.6 H Plt Count 314 MPV 8.7 Neut % (Auto) 82.0 H Lymph % (Auto) 9.5 L [place] % (Auto) 7.6 Eos % (Auto) 0.0 Baso % (Auto) 0.9 Neut # (Auto) 11.1 H Lymph # (Auto) 1.3 [place] # (Auto) 1.0 H Eos # (Auto) 0.0 Baso # (Auto) 0.1 Neutrophils % (Manual) 74 Band Neutrophils % 5 H Lymphocytes % (Manual) 13 L Monocytes % (Manual) 8 Smudge Cells Present Platelet Estimate Normal Polychromasia Slight Hypochromasia (manual) Slight Poikilocytosis (manual Slight Anisocytosis (manual) Moderate Microcytosis (manual) Moderate Ovalocytes Slight Retic Count Haptoglobin PT INR APTT pO2 43 VBG pH 7.47 H VBG pCO2 32 L VBG HCO3 24.7 VBG Total CO2 24.3 VBG O2 Sat (Calc) 84.7 H VBG Base Excess 0.3 VBG Potassium 3.3 L Sodium 129.0 L 132 Chloride 97.0 L 94 L Glucose 90 Lactate 0.7 FiO2 21.0 Potassium 3.5 L Carbon Dioxide 22 Anion Gap 20 BUN 10 Creatinine 0.7 Est GFR ( Amer) > 60 Est GFR (Non-Af Amer) > 60 Random Glucose 90 Calcium 8.6 Phosphorus 4.2 Magnesium 1.7 Iron TIBC % Saturation Transferrin Ferritin Total Bilirubin 0.6 AST 33 ALT 8 L D Alkaline Phosphatase 96 Lactate Dehydrogenase Total Protein 10.2 H Albumin 3.9 Globulin 6.4 H Albumin/Globulin Ratio 0.6 L Venous Blood Potassium 3.3 L Urine Color Urine Clarity Urine pH Ur Specific [place] Urine Protein Urine Glucose (UA) Urine Ketones Urine Blood Urine Nitrate Urine Bilirubin Urine Urobilinogen Ur Leukocyte Esterase Urine RBC (Auto) Urine Microscopic WBC Ur Squamous Epith Cells Ur Transition Epith Cell Urine Bacteria Influenza Typ A,B (EIA) Ur L.pneumophila Ag 08/04/17 08/04/17 08/04/17 15:41 15:41 18:10 WBC RBC Hgb Hct MCV MCH MCHC RDW Plt Count MPV Neut % (Auto) Lymph % (Auto) [place] % (Auto) Eos % (Auto) Baso % (Auto) Neut # (Auto) Lymph # (Auto) [place] # (Auto) Eos # (Auto) Baso # (Auto) Neutrophils % (Manual) Band Neutrophils % Lymphocytes % (Manual) Monocytes % (Manual) Smudge Cells Platelet Estimate Polychromasia Hypochromasia (manual) Poikilocytosis (manual Anisocytosis (manual) Microcytosis (manual) Ovalocytes Retic Count Haptoglobin PT 14.8 H INR 1.3 H APTT 27.8 pO2 VBG pH VBG pCO2 VBG HCO3 VBG Total CO2 VBG O2 Sat (Calc) VBG Base Excess VBG Potassium Sodium Chloride Glucose Lactate FiO2 Potassium Carbon Dioxide Anion Gap BUN Creatinine Est GFR ( Amer) Est GFR (Non-Af Amer) Random Glucose Calcium Phosphorus Magnesium Iron TIBC % Saturation Transferrin Ferritin Total Bilirubin AST ALT Alkaline Phosphatase Lactate Dehydrogenase Total Protein Albumin Globulin Albumin/Globulin Ratio Venous Blood Potassium Urine Color Light yellow Urine Clarity Clear Urine pH 6.0 Ur Specific [place] < 1.005 Urine Protein Trace Urine Glucose (UA) Negative Urine Ketones Negative Urine Blood Trace-intact Urine Nitrate Negative Urine Bilirubin Negative Urine Urobilinogen 0.2 Ur Leukocyte Esterase Negative Urine RBC (Auto) 2 Urine Microscopic WBC 2 Ur Squamous Epith Cells 1 Ur Transition Epith Cell 0 Urine Bacteria Rare Influenza Typ A,B (EIA) Negative for flu a/b Ur L.pneumophila Ag 08/05/17 08/05/17 08/05/17 05:00 05:00 05:00 WBC 11.5 H RBC 3.88 Hgb 9.6 L Hct 30.0 L MCV 77.2 L MCH 24.6 L MCHC 31.9 L RDW 14.3 Plt Count 240 MPV 8.0 Neut % (Auto) 82.1 H Lymph % (Auto) 8.4 L [place] % (Auto) 9.1 Eos % (Auto) 0.1 Baso % (Auto) 0.3 Neut # (Auto) 9.4 H Lymph # (Auto) 1.0 [place] # (Auto) 1.0 H Eos # (Auto) 0.0 Baso # (Auto) 0.0 Neutrophils % (Manual) Band Neutrophils % Lymphocytes % (Manual) Monocytes % (Manual) Smudge Cells Platelet Estimate Polychromasia Hypochromasia (manual) Poikilocytosis (manual Anisocytosis (manual) Microcytosis (manual) Ovalocytes Retic Count Haptoglobin PT INR APTT pO2 VBG pH VBG pCO2 VBG HCO3 VBG Total CO2 VBG O2 Sat (Calc) VBG Base Excess VBG Potassium Sodium 139 Chloride 106 Glucose Lactate FiO2 Potassium 3.7 Carbon Dioxide 20 L Anion Gap 17 BUN 12 Creatinine 0.7 Est GFR ( Amer) > 60 Est GFR (Non-Af Amer) > 60 Random Glucose 88 Calcium 8.2 L Phosphorus Magnesium Iron 13 L TIBC 272 % Saturation 5 L Transferrin Ferritin 79.7 Total Bilirubin AST ALT Alkaline Phosphatase Lactate Dehydrogenase Total Protein Albumin Globulin Albumin/Globulin Ratio Venous Blood Potassium Urine Color Urine Clarity Urine pH Ur Specific [place] Urine Protein Urine Glucose (UA) Urine Ketones Urine Blood Urine Nitrate Urine Bilirubin Urine Urobilinogen Ur Leukocyte Esterase Urine RBC (Auto) Urine Microscopic WBC Ur Squamous Epith Cells Ur Transition Epith Cell Urine Bacteria Influenza Typ A,B (EIA) Ur L.pneumophila Ag 08/05/17 08/05/17 08/05/17 05:00 08:10 08:10 WBC 11.0 H RBC 3.90 Hgb 9.8 L Hct 29.8 L MCV 76.4 L MCH 25.2 L MCHC 33.0 RDW 14.5 Plt Count 256 MPV 8.3 Neut % (Auto) 81.3 H Lymph % (Auto) 10.9 L [place] % (Auto) 7.4 Eos % (Auto) 0.2 Baso % (Auto) 0.2 Neut # (Auto) 8.9 H Lymph # (Auto) 1.2 [place] # (Auto) 0.8 Eos # (Auto) 0.0 Baso # (Auto) 0.0 Neutrophils % (Manual) Band Neutrophils % Lymphocytes % (Manual) Monocytes % (Manual) Smudge Cells Platelet Estimate Polychromasia Hypochromasia (manual) Poikilocytosis (manual Anisocytosis (manual) Microcytosis (manual) Ovalocytes Retic Count 0.8 Haptoglobin PT INR APTT pO2 VBG pH VBG pCO2 VBG HCO3 VBG Total CO2 VBG O2 Sat (Calc) VBG Base Excess VBG Potassium Sodium Chloride Glucose Lactate FiO2 Potassium Carbon Dioxide Anion Gap BUN Creatinine Est GFR ( Amer) Est GFR (Non-Af Amer) Random Glucose Calcium Phosphorus Magnesium Iron TIBC % Saturation Transferrin 193.97 L Ferritin Total Bilirubin AST ALT Alkaline Phosphatase Lactate Dehydrogenase 359 Total Protein Albumin Globulin Albumin/Globulin Ratio Venous Blood Potassium Urine Color Urine Clarity Urine pH Ur Specific [place] Urine Protein Urine Glucose (UA) Urine Ketones Urine Blood Urine Nitrate Urine Bilirubin Urine Urobilinogen Ur Leukocyte Esterase Urine RBC (Auto) Urine Microscopic WBC Ur Squamous Epith Cells Ur Transition Epith Cell Urine Bacteria Influenza Typ A,B (EIA) Ur L.pneumophila Ag 08/05/17 08/06/17 08/06/17 08:10 05:10 05:10 WBC 4.8 D RBC 3.61 L Hgb 9.1 L Hct 28.2 L MCV 78.1 L MCH 25.1 L MCHC 32.2 L RDW 14.8 H Plt Count 279 MPV Neut % (Auto) Lymph % (Auto) [place] % (Auto) Eos % (Auto) Baso % (Auto) Neut # (Auto) Lymph # (Auto) [place] # (Auto) Eos # (Auto) Baso # (Auto) Neutrophils % (Manual) Band Neutrophils % Lymphocytes % (Manual) Monocytes % (Manual) Smudge Cells Platelet Estimate Polychromasia Hypochromasia (manual) Poikilocytosis (manual Anisocytosis (manual) Microcytosis (manual) Ovalocytes Retic Count Haptoglobin 258.3 H PT INR APTT pO2 VBG pH VBG pCO2 VBG HCO3 VBG Total CO2 VBG O2 Sat (Calc) VBG Base Excess VBG Potassium Sodium 141 Chloride 109 H Glucose Lactate FiO2 Potassium 3.8 Carbon Dioxide 22 Anion Gap 14 BUN 7 Creatinine 0.7 Est GFR ( Amer) > 60 Est GFR (Non-Af Amer) > 60 Random Glucose 91 Calcium 8.1 L Phosphorus Magnesium Iron TIBC % Saturation Transferrin Ferritin Total Bilirubin AST ALT Alkaline Phosphatase Lactate Dehydrogenase Total Protein Albumin Globulin Albumin/Globulin Ratio Venous Blood Potassium Urine Color Urine Clarity Urine pH Ur Specific [place] Urine Protein Urine Glucose (UA) Urine Ketones Urine Blood Urine Nitrate Urine Bilirubin Urine Urobilinogen Ur Leukocyte Esterase Urine RBC (Auto) Urine Microscopic WBC Ur Squamous Epith Cells Ur Transition Epith Cell Urine Bacteria Influenza Typ A,B (EIA) Ur L.pneumophila Ag 08/06/17 07:36 WBC RBC Hgb Hct MCV MCH MCHC RDW Plt Count MPV Neut % (Auto) Lymph % (Auto) [place] % (Auto) Eos % (Auto) Baso % (Auto) Neut # (Auto) Lymph # (Auto) [place] # (Auto) Eos # (Auto) Baso # (Auto) Neutrophils % (Manual) Band Neutrophils % Lymphocytes % (Manual) Monocytes % (Manual) Smudge Cells Platelet Estimate Polychromasia Hypochromasia (manual) Poikilocytosis (manual Anisocytosis (manual) Microcytosis (manual) Ovalocytes Retic Count Haptoglobin PT INR APTT pO2 VBG pH VBG pCO2 VBG HCO3 VBG Total CO2 VBG O2 Sat (Calc) VBG Base Excess VBG Potassium Sodium Chloride Glucose Lactate FiO2 Potassium Carbon Dioxide Anion Gap BUN Creatinine Est GFR ( Amer) Est GFR (Non-Af Amer) Random Glucose Calcium Phosphorus Magnesium Iron TIBC % Saturation Transferrin Ferritin Total Bilirubin AST ALT Alkaline Phosphatase Lactate Dehydrogenase Total Protein Albumin Globulin Albumin/Globulin Ratio Venous Blood Potassium Urine Color Urine Clarity Urine pH Ur Specific [place] Urine Protein Urine Glucose (UA) Urine Ketones Urine Blood Urine Nitrate Urine Bilirubin Urine Urobilinogen Ur Leukocyte Esterase Urine RBC (Auto) Urine Microscopic WBC Ur Squamous Epith Cells Ur Transition Epith Cell Urine Bacteria Influenza Typ A,B (EIA) Ur L.pneumophila Ag Negative Microbiology 08/04/17 15:45 Blood Blood Culture - Preliminary NO GROWTH AFTER 48 HOURS 08/04/17 15:05 Blood Blood Culture - Preliminary NO GROWTH AFTER 48 HOURS 08/04/17 16:52 Urine Urine Culture - Final <10,000 CFU/ML. MULTIPLE SPECIES. PROBABLE CONTAMINATION. 08/05/17 09:59 Sputum Gram Stain - Preliminary Assessment and Plan (1) Pneumonia Status: Acute (2) HIV (human immunodeficiency virus infection) Status: Chronic (3) Cough Status: Acute (4) Fever Status: Acute - Assessment and Plan (Free Text) Assessment: A/P- 47 year old HIV positive female admitted with fever, cough found to have pneumonia on cxr. in light of recent hospitalization certainly would advise to cover with broad spectrum antibiotics to cover for HAP. as per records from [facility] done 07/07/17 latest Cd4 count at at 399 with a viral load of 67,630hence no suspicion of opportunistic infections although PCP can present with higher CD4 as well sometimes. afebrile leukocytosis resolved. blood cx- neg x 2 urine cx- neg urine legionella AG- neg plan- await CD4 and VL now and Genotype. await sputum cx. continue with with IV zosyn and vanco to cover for HAP. day #2 advise to also add oral zithromax ro cover for atypicals.day #2 advise to also include bactrim DS daily . All above d/w patient and she verbalizes full understanding of all above and agrees with above plan of care. All above also d/w family practice team.
--- NOTE | 2017-08-06 13:51 | CP.PCM.PN ---
<Wilmer Gustafson - Last Filed: 08/06/17 14:15> Subjective - Date & Time of Evaluation Date of Evaluation: 08/06/17 Time of Evaluation: 08:00 - Subjective Subjective: Marialuisa was seen and evaluated at bedside. Pt reports significant improvement especially with sob. Currently, she will experience sob intermittently lasting seconds. tolerating po diet, ambulating. Reports resolved blood tinged sputum. Denies CP/N/V/diarrhea or constipation. Objective - Vital Signs/Intake and Output Vital Signs (last 24 hours): Temp Pulse Resp BP Pulse Ox 97.9 F 93 H 20 101/61 93 L 08/06/17 12:17 08/06/17 12:17 08/06/17 12:17 08/06/17 12:17 08/06/17 12:17 - Medications Medications: Current Medications Acetaminophen (Tylenol 325mg Tab) 650 mg PO Q6 PRN PRN Reason: Fever >100.4 F Azithromycin (Zithromax) 500 mg PO DAILY [facility] PRN Reason: Protocol Last Admin: 08/06/17 08:46 Dose: 500 mg Bupropion HCl (Wellbutrin Sr 150 Mg) 150 mg PO DAILY [facility] Last Admin: 08/06/17 08:46 Dose: 150 mg Calcium/Vitamin D (Oyster Shell Calcium/Vitamin D 500 Mg-200 Iu) 1 tab PO DAILY [facility] Emollient Ointment (Vaseline Oint) 1 pkt TOP Q4 [facility] Last Admin: 08/06/17 13:45 Dose: 1 pkt Fluticasone Propionate (Flonase) 2 spr FREIDA DAILY [facility] Last Admin: 08/06/17 13:45 Dose: 2 spr Gabapentin (Neurontin) 100 mg PO TID [facility] Last Admin: 08/06/17 13:45 Dose: 100 mg Guaifenesin/Dextromethorphan (Mucinex-Dm 600-30 Mg) 1 tab PO BID [facility] Last Admin: 08/06/17 08:46 Dose: 1 tab Vancomycin HCl 1 gm/ Sodium (Chloride) 250 mls @ 166.667 mls/hr IVPB Q12 [facility] PRN Reason: Protocol Last Admin: 08/06/17 08:47 Dose: 166.667 mls/hr Piperacillin Sod/Tazobactam (Sod 4.5 gm/ Sodium Chloride) 100 mls @ 100 mls/hr IVPB Q6 [facility] PRN Reason: Protocol Last Admin: 08/06/17 09:02 Dose: 100 mls/hr Iron Sucrose 100 mg/ Sodium (Chloride) 105 mls @ 105 mls/hr IVPB DAILY [facility] Last Admin: 08/06/17 10:53 Dose: 105 mls/hr Ibuprofen (Motrin Tab) 400 mg PO Q6 PRN PRN Reason: Pain, moderate (4-7) Last Admin: 08/05/17 09:17 Dose: 400 mg Quetiapine Fumarate (Seroquel) 100 mg PO HS [facility] Last Admin: 08/05/17 21:38 Dose: 100 mg Trimethoprim/Sulfamethoxazole (Bactrim Ds Tab) 1 tab PO DAILY [facility] PRN Reason: Protocol Last Admin: 08/06/17 08:46 Dose: 1 tab - Labs Labs: 08/06/17 05:10 08/06/17 05:10 PT 14.8 Seconds (9.8-13.1) H 08/04/17 15:41 INR 1.3 (0.9-1.2) H 08/04/17 15:41 APTT 27.8 Seconds (25.6-37.1) 08/04/17 15:41 - Constitutional Appears: Well, No Acute Distress - Eye Exam Eye Exam: EOMI - ENT Exam ENT Exam: Mucous Membranes Moist - Neck Exam Neck Exam: Full ROM - Respiratory Exam Respiratory Exam: Clear to Ausculation Bilateral, NORMAL BREATHING PATTERN. absent: Wheezes - Cardiovascular Exam Cardiovascular Exam: REGULAR RHYTHM, +S1, +S2 - GI/Abdominal Exam GI & Abdominal Exam: Soft, Normal Bowel Sounds. absent: Tenderness - Extremities Exam Extremities Exam: Full ROM. absent: Calf Tenderness - Back Exam Back Exam: absent: CVA tenderness (L), CVA tenderness (R) - Neurological Exam Neurological Exam: Alert, Awake, CN II-XII Intact, Normal Gait, Oriented x3 - Psychiatric Exam Psychiatric exam: Normal Affect, Normal Mood Assessment and Plan - Assessment and Plan (Free Text) Plan: 47 year old undomiciled female with PMHx including HIV, and Depression, recently discharged from hospital admission admitted with left lower lobe pneumonia, and suspicious of developing right lower lobe pneumonia. L lower lobe Pneumonia -with suspect developing right lower lobe pneumonia in a recent hospitalization in a setting of positive HIV infection -HCAP: -febrile, leukocytosis on admission/sepsis: resolved -CXR: consolidation in the left lower lobe likely represents pneumonia, suspect developing right lower lobe pneumonia -s/p azithromycin 500 mg IV in ER -s/p zosyn 3.375 gm IV in ER -s/p Bactrim 2 tab PO in ER -c/w acetaminophen PRN for fevers -Zosyn 4.5 GM IV Q6 -Vancomycin 1 gm IV Q12 -Azithromycin 500 mg QD -Bactrim DS 1 tab qD -Mucinex DM for cough -f/u blood culture x2: no culture after 24 hrs -f/u sputum culture: pending -f/u mycoplasma serum: pending -f/u urine legionella: pending -ID consult: Dr. Mccartney: Recommendations noted HIV infection; asymptomatic -without AIDS -not on medications for over 7 months -as per records, pt's lab from [facility] done 07/07/17 latest Cd4 count at at 399 with a viral load of 67,630 -No indication for prophylactic antibiotic therapy at this time -Pt is noncompliant with therapy, but states she will likely start once she feels better from her respiratory symptoms, and today resume her outpatient follow up with PMD at [facility]. Given risk of resistance, will not restart HAART while hospitalized. -Per Dr. Franklin: f/u: immunofixation serum, urine: pending -f/u cd4, vl, genotype: pending Microcytic Hypochromic Anemia -H/H: 9.1/28.2; MCV: 78.1 -Iron studies: Fe: 13L; TIBC: 272; Ferritin: 79.7 -Venofer 100 mg Hypokalemia - resolved; K 3.8 Depression -stable -denies suicidal or homicidal ideation at this eval -resume home antidepressants as per Psych recs -monitor H/O prediabetes -last HgBA1C was 6.0 on 07/27/17 -patient requesting regular diet DVT prophylaxis -Encourage Ambulation -SCDs while in bed <Humera Moreno - Last Filed: 08/07/17 09:38> Objective - Vital Signs/Intake and Output Vital Signs (last 24 hours): Temp Pulse Resp BP Pulse Ox 98.1 F 72 20 110/71 98 08/07/17 08:20 08/07/17 08:20 08/07/17 08:20 08/07/17 08:20 08/07/17 08:20 - Medications Medications: Current Medications Acetaminophen (Tylenol 325mg Tab) 650 mg PO Q6 PRN PRN Reason: Fever >100.4 F Azithromycin (Zithromax) 500 mg PO DAILY [facility] PRN Reason: Protocol Last Admin: 08/07/17 08:53 Dose: 500 mg Bupropion HCl (Wellbutrin Sr 150 Mg) 150 mg PO DAILY [facility] Last Admin: 08/07/17 08:53 Dose: 150 mg Calcium/Vitamin D (Oyster Shell Calcium/Vitamin D 500 Mg-200 Iu) 1 tab PO DAILY [facility] Last Admin: 08/07/17 08:54 Dose: 1 tab Emollient Ointment (Vaseline Oint) 1 pkt TOP Q4 [facility] Last Admin: 08/07/17 08:56 Dose: 1 pkt Fluticasone Propionate (Flonase) 2 spr FREIDA DAILY [facility] Last Admin: 08/06/17 13:45 Dose: 2 spr Gabapentin (Neurontin) 100 mg PO TID [facility] Last Admin: 08/07/17 08:56 Dose: 100 mg Guaifenesin/Dextromethorphan (Mucinex-Dm 600-30 Mg) 1 tab PO BID [facility] Last Admin: 08/07/17 08:55 Dose: 1 tab Vancomycin HCl 1 gm/ Sodium (Chloride) 250 mls @ 166.667 mls/hr IVPB Q12 [facility] PRN Reason: Protocol Last Admin: 08/07/17 08:50 Dose: 166.667 mls/hr Piperacillin Sod/Tazobactam (Sod 4.5 gm/ Sodium Chloride) 100 mls @ 100 mls/hr IVPB Q6 [facility] PRN Reason: Protocol Last Admin: 08/07/17 03:59 Dose: 100 mls/hr Iron Sucrose 100 mg/ Sodium (Chloride) 105 mls @ 105 mls/hr IVPB DAILY [facility] Last Admin: 08/06/17 10:53 Dose: 105 mls/hr Ibuprofen (Motrin Tab) 400 mg PO Q6 PRN PRN Reason: Pain, moderate (4-7) Last Admin: 08/05/17 09:17 Dose: 400 mg Quetiapine Fumarate (Seroquel) 100 mg PO HS [facility] Last Admin: 08/06/17 21:18 Dose: 100 mg Trimethoprim/Sulfamethoxazole (Bactrim Ds Tab) 1 tab PO DAILY [facility] PRN Reason: Protocol Last Admin: 08/07/17 08:54 Dose: 1 tab - Labs Labs: 08/07/17 06:38 08/07/17 06:38 PT 14.8 Seconds (9.8-13.1) H 08/04/17 15:41 INR 1.3 (0.9-1.2) H 08/04/17 15:41 APTT 27.8 Seconds (25.6-37.1) 08/04/17 15:41 Attending/Attestation - Attestation I have personally seen and examined this patient.: Yes I have fully participated in the care of the patient.: Yes I have reviewed all pertinent clinical information, including history, physical exam and plan: Yes Notes (Text): 08/07/17 09:37 ATTENDNING NOTE -ATTESTATION NOTE PATIENT SEEN AND EXAMINED. CASE DISCUSSED WITH RESIDENT. AGREE WITH FINDINGS AND PLAN.
--- NOTE | 2017-08-06 18:23 | CARD ---
APPROVED REPORT EKG Measurement Heart [id number] <Conclusion> Sinus tachycardia Otherwise normal ECG
[2017-08-06] MEDS: Calcium-Vit D 500 mg-200 Units Tab UD PO SCH (19:24)
[2017-08-07] MEDS: Piperacillin/Tazobact 4.5 GM in Sodium Chloride 0.9% 100 ML IVPB SCH ×4 (03:59→21:23)
[2017-08-07 07:48] LABS: HEMOGLOBIN 9.2 g/dL (12.0-16.0); MEAN CELL VOLUME 77.6 fl (81.0-99.0); MEAN CORPUSCULAR HEMOGLOBIN 24.8 pg (27.0-31.0); RBC 3.7 Mil/uL (3.80-5.20); RED CELL DISTRIBUTION WIDTH 14.9 % (11.5-14.5); WHITE BLOOD COUNT 3.6 K/uL (4.8-10.8)
[2017-08-07 08:03] LABS: ALB/GLOB RATIO 0.5 (1.0-2.1); ALBUMIN 2.8 g/dL (3.5-5.0); ALT/SGPT 30 U/L (9-52); AST/SGOT 22 U/L (14-36); BLOOD UREA NITROGEN 4 mg/dl (7-17); CALCIUM 8.1 mg/dL (8.4-10.2); GFR AFRICAN-AMERICAN > 60; GFR NON-AFRICAN AMERICAN > 60
--- NOTE | 2017-08-07 08:25 | CP.PCM.PN ---
<Denia Calles - Last Filed: 08/07/17 13:58> Subjective - Date & Time of Evaluation Date of Evaluation: 08/07/17 Time of Evaluation: 08:24 - Subjective Subjective: no overnight events. Feeling well. Denies chest pain, SOB. productive cough improved. Making urine and BM. Eating/drinking Objective - Vital Signs/Intake and Output Vital Signs (last 24 hours): Temp Pulse Resp BP Pulse Ox 98.1 F 72 20 110/71 98 08/07/17 08:20 08/07/17 08:20 08/07/17 08:20 08/07/17 08:20 08/07/17 08:20 - Medications Medications: Current Medications Acetaminophen (Tylenol 325mg Tab) 650 mg PO Q6 PRN PRN Reason: Fever >100.4 F Azithromycin (Zithromax) 500 mg PO DAILY [facility] PRN Reason: Protocol Last Admin: 08/06/17 08:46 Dose: 500 mg Bupropion HCl (Wellbutrin Sr 150 Mg) 150 mg PO DAILY [facility] Last Admin: 08/06/17 08:46 Dose: 150 mg Calcium/Vitamin D (Oyster Shell Calcium/Vitamin D 500 Mg-200 Iu) 1 tab PO DAILY [facility] Last Admin: 08/06/17 19:24 Dose: 1 tab Emollient Ointment (Vaseline Oint) 1 pkt TOP Q4 [facility] Last Admin: 08/06/17 21:16 Dose: 1 pkt Fluticasone Propionate (Flonase) 2 spr FREIDA DAILY [facility] Last Admin: 08/06/17 13:45 Dose: 2 spr Gabapentin (Neurontin) 100 mg PO TID [facility] Last Admin: 08/06/17 16:43 Dose: 100 mg Guaifenesin/Dextromethorphan (Mucinex-Dm 600-30 Mg) 1 tab PO BID [facility] Last Admin: 08/06/17 16:43 Dose: 1 tab Vancomycin HCl 1 gm/ Sodium (Chloride) 250 mls @ 166.667 mls/hr IVPB Q12 [facility] PRN Reason: Protocol Last Admin: 08/06/17 21:15 Dose: 166.667 mls/hr Piperacillin Sod/Tazobactam (Sod 4.5 gm/ Sodium Chloride) 100 mls @ 100 mls/hr IVPB Q6 [facility] PRN Reason: Protocol Last Admin: 08/07/17 03:59 Dose: 100 mls/hr Iron Sucrose 100 mg/ Sodium (Chloride) 105 mls @ 105 mls/hr IVPB DAILY [facility] Last Admin: 08/06/17 10:53 Dose: 105 mls/hr Ibuprofen (Motrin Tab) 400 mg PO Q6 PRN PRN Reason: Pain, moderate (4-7) Last Admin: 08/05/17 09:17 Dose: 400 mg Quetiapine Fumarate (Seroquel) 100 mg PO HS [facility] Last Admin: 08/06/17 21:18 Dose: 100 mg Trimethoprim/Sulfamethoxazole (Bactrim Ds Tab) 1 tab PO DAILY [facility] PRN Reason: Protocol Last Admin: 08/06/17 08:46 Dose: 1 tab - Labs Labs: 08/07/17 06:38 08/07/17 06:38 PT 14.8 Seconds (9.8-13.1) H 08/04/17 15:41 INR 1.3 (0.9-1.2) H 08/04/17 15:41 APTT 27.8 Seconds (25.6-37.1) 08/04/17 15:41 - Constitutional Appears: Well, No Acute Distress - Head Exam Head Exam: ATRAUMATIC, NORMAL INSPECTION - Eye Exam Eye Exam: Normal appearance - ENT Exam ENT Exam: Mucous Membranes Moist - Neck Exam Neck Exam: Full ROM, Normal Inspection - Respiratory Exam Respiratory Exam: Clear to Ausculation Bilateral - Cardiovascular Exam Cardiovascular Exam: REGULAR RHYTHM - GI/Abdominal Exam GI & Abdominal Exam: Soft. absent: Tenderness - Back Exam Back Exam: NORMAL INSPECTION - Neurological Exam Neurological Exam: Alert, Oriented x3 - Skin Skin Exam: Dry, Warm Assessment and Plan - Assessment and Plan (Free Text) Assessment: A: 47yo F wwith PMHx HIV and Depression admitted with B/l lower lobe PNA and sepsis. P: downgrade to M/S, c/w IV abx L lower lobe HCAP -CXR: consolidation in the left lower lobe likely represents pneumonia, suspect developing right lower lobe pneumonia -Zosyn 4.5 GM IV Q6 -Vancomycin 1 gm IV Q12 -Azithromycin 500 mg QD -Bactrim DS 1 tab qD -Mucinex DM for cough -blood culture x2: NGTD -sputum culture: NGTD -AFB, airborne precautions -f/u mycoplasma serum: pending -urine legionella: neg -ID consult: Dr. 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 -IV Fe completed -PO iron UPEP/SPEP with M spike -immunofixation serum, urine: pending Depression -resume home antidepressants as per Psych recs H/O prediabetes -HgBA1C 6.0 on 07/27/17 -patient requesting regular diet DVT prophylaxis -Encourage Ambulation -SCDs while in bed <Humera Moreno - Last Filed: 08/08/17 08:50> Objective - Vital Signs/Intake and Output Vital Signs (last 24 hours): Temp Pulse Resp BP Pulse Ox 98.6 F 85 18 109/68 97 08/08/17 04:49 08/08/17 04:49 08/08/17 04:49 08/08/17 04:49 08/08/17 04:49 - Medications Medications: Current Medications Acetaminophen (Tylenol 325mg Tab) 650 mg PO Q6 PRN PRN Reason: Fever >100.4 F Azithromycin (Zithromax) 500 mg PO DAILY [facility] PRN Reason: Protocol Last Admin: 08/07/17 08:53 Dose: 500 mg Bupropion HCl (Wellbutrin Sr 150 Mg) 150 mg PO DAILY [facility] Last Admin: 08/07/17 08:53 Dose: 150 mg Calcium/Vitamin D (Oyster Shell Calcium/Vitamin D 500 Mg-200 Iu) 1 tab PO DAILY [facility] Last Admin: 08/07/17 08:54 Dose: 1 tab Emollient Ointment (Vaseline Oint) 1 pkt TOP Q4 [facility] Last Admin: 08/08/17 01:00 Dose: Not Given Enoxaparin Sodium (Lovenox) 40 mg SC DAILY [facility] PRN Reason: Protocol Last Admin: 08/07/17 14:39 Dose: 40 mg Fluticasone Propionate (Flonase) 2 spr FREIDA DAILY [facility] Last Admin: 08/07/17 10:54 Dose: 2 spr Gabapentin (Neurontin) 100 mg PO TID [facility] Last Admin: 08/07/17 16:14 Dose: 100 mg Guaifenesin/Dextromethorphan (Mucinex-Dm 600-30 Mg) 1 tab PO BID [facility] Last Admin: 08/07/17 16:14 Dose: 1 tab Vancomycin HCl 1 gm/ Sodium (Chloride) 250 mls @ 166.667 mls/hr IVPB Q12 [facility] PRN Reason: Protocol Last Admin: 08/07/17 21:24 Dose: 166.667 mls/hr Piperacillin Sod/Tazobactam (Sod 4.5 gm/ Sodium Chloride) 100 mls @ 100 mls/hr IVPB Q6 [facility] PRN Reason: Protocol Last Admin: 08/08/17 04:19 Dose: 100 mls/hr Iron Sucrose 100 mg/ Sodium (Chloride) 105 mls @ 105 mls/hr IVPB DAILY [facility] Last Admin: 08/07/17 10:50 Dose: 105 mls/hr Ibuprofen (Motrin Tab) 400 mg PO Q6 PRN PRN Reason: Pain, moderate (4-7) Last Admin: 08/05/17 09:17 Dose: 400 mg Lactobacillus Acidophilus (Bacid Acidophilus) 1 cap PO BID [facility] Quetiapine Fumarate (Seroquel) 100 mg PO HS [facility] Last Admin: 08/07/17 21:23 Dose: 100 mg Trimethoprim/Sulfamethoxazole (Bactrim Ds Tab) 1 tab PO DAILY [facility] PRN Reason: Protocol Last Admin: 08/07/17 08:54 Dose: 1 tab - Labs Labs: 08/08/17 07:02 08/08/17 07:02 PT 14.8 Seconds (9.8-13.1) H 08/04/17 15:41 INR 1.3 (0.9-1.2) H 08/04/17 15:41 APTT 27.8 Seconds (25.6-37.1) 08/04/17 15:41 Attending/Attestation - Attestation I have personally seen and examined this patient.: Yes I have fully participated in the care of the patient.: Yes I have reviewed all pertinent clinical information, including history, physical exam and plan: Yes Notes (Text): 08/08/17 08:50 ATTENDING NOTE ATTESTION - PATIENT SEEN AND EXAMINED. CASE DISCUSSED WITH RESIDENT. AGREE WITH FINDINGS AND PLAN.
[2017-08-07] MEDS: buPROPion SR 150 MG TABLET PO SCH (08:53)
[2017-08-07] MEDS: Calcium-Vit D 500 mg-200 Units Tab UD PO SCH (08:54)
[2017-08-07] MEDS: Tmp-Smz 800 mg-160 mg DS Tab PO SCH (08:54)
[2017-08-07] MEDS: guaiFENesin-DM 600-30 mg ER Tab PO SCH ×2 (08:55→16:14)
[2017-08-07] MEDS: Petrolatum UD PAK TOP SCH ×4 (08:56→21:22)
[2017-08-07] MEDS: Enoxaparin 40 mg Syringe SC SCH (14:39)
[2017-08-08] MEDS: Petrolatum UD PAK TOP SCH ×5 (01:00→21:12)
[2017-08-08] MEDS: Piperacillin/Tazobact 4.5 GM in Sodium Chloride 0.9% 100 ML IVPB SCH ×4 (04:19→21:10)
[2017-08-08 08:16] LABS: BASO % 0.8 % (0.0-2.0); EOS # 0.1 K/uL (0.0-0.7); EOS % 2.3 % (0.0-4.0); HEMOGLOBIN 9.8 g/dL (12.0-16.0); LYMPH % 26.5 % (20.0-40.0); MEAN CORPUSCULAR HGB CONC 32.1 g/dL (33.0-37.0); MEAN PLATELET VOLUME 7.9 fl (7.2-11.7); MONO # 0.6 K/uL (0.0-0.8); MONO % 15.4 % (0.0-10.0); NEUT # 2.2 K/uL (1.8-7.0); NRBC % 0.1 % (0.0-0.0); RBC 3.92 Mil/uL (3.80-5.20); RED CELL DISTRIBUTION WIDTH 14.5 % (11.5-14.5); WHITE BLOOD COUNT 3.9 K/uL (4.8-10.8)
[2017-08-08 08:29] LABS: BLOOD UREA NITROGEN 6 mg/dl (7-17); CALCIUM 8.4 mg/dL (8.4-10.2); GFR AFRICAN-AMERICAN > 60; GFR NON-AFRICAN AMERICAN > 60
[2017-08-08] MEDS: guaiFENesin-DM 600-30 mg ER Tab PO SCH ×2 (10:00→17:39)
[2017-08-08] MEDS: Calcium-Vit D 500 mg-200 Units Tab UD PO SCH (10:00)
[2017-08-08] MEDS: buPROPion SR 150 MG TABLET PO SCH (10:00)
[2017-08-08] MEDS: Enoxaparin 40 mg Syringe SC SCH (10:00)
[2017-08-08] MEDS: Tmp-Smz 800 mg-160 mg DS Tab PO SCH (10:00)
[2017-08-08] MEDS: Lactobacillus Acidophilus 500 MU Cap PO SCH ×2 (10:28→17:39)
--- NOTE | 2017-08-08 14:57 | CP.PCM.PN ---
<GustafsonWilmer barrios - Last Filed: 08/08/17 14:42> Subjective - Date & Time of Evaluation Date of Evaluation: 08/08/17 Time of Evaluation: 09:10 - Subjective Subjective: Marialuisa was seen and examined at bedside. Denies overnight events. Denies CP/SOB /N/V. Tolerating po diet. Normal bowel movements and urinary output. Objective - Vital Signs/Intake and Output Vital Signs (last 24 hours): Temp Pulse Resp BP Pulse Ox 97.7 F 72 20 107/70 98 08/08/17 13:00 08/08/17 13:00 08/08/17 13:00 08/08/17 13:00 08/08/17 13:00 - Medications Medications: Current Medications Acetaminophen (Tylenol 325mg Tab) 650 mg PO Q6 PRN PRN Reason: Fever >100.4 F Azithromycin (Zithromax) 500 mg PO DAILY [facility] PRN Reason: Protocol Last Admin: 08/08/17 10:00 Dose: 500 mg Bupropion HCl (Wellbutrin Sr 150 Mg) 150 mg PO DAILY [facility] Last Admin: 08/08/17 10:00 Dose: 150 mg Calcium/Vitamin D (Oyster Shell Calcium/Vitamin D 500 Mg-200 Iu) 1 tab PO DAILY [facility] Last Admin: 08/08/17 10:00 Dose: 1 tab Emollient Ointment (Vaseline Oint) 1 pkt TOP Q4 [facility] Last Admin: 08/08/17 12:29 Dose: 1 pkt Enoxaparin Sodium (Lovenox) 40 mg SC DAILY [facility] PRN Reason: Protocol Last Admin: 08/08/17 10:00 Dose: 40 mg Fluticasone Propionate (Flonase) 2 spr FREIDA DAILY [facility] Last Admin: 08/08/17 10:27 Dose: 2 spr Gabapentin (Neurontin) 100 mg PO TID [facility] Last Admin: 08/08/17 12:29 Dose: 100 mg Guaifenesin/Dextromethorphan (Mucinex-Dm 600-30 Mg) 1 tab PO BID [facility] Last Admin: 08/08/17 10:00 Dose: 1 tab Vancomycin HCl 1 gm/ Sodium (Chloride) 250 mls @ 166.667 mls/hr IVPB Q12 [facility] PRN Reason: Protocol Last Admin: 08/08/17 10:00 Dose: 166.667 mls/hr Piperacillin Sod/Tazobactam (Sod 4.5 gm/ Sodium Chloride) 100 mls @ 100 mls/hr IVPB Q6 [facility] PRN Reason: Protocol Last Admin: 08/08/17 10:00 Dose: 100 mls/hr Iron Sucrose 100 mg/ Sodium (Chloride) 105 mls @ 105 mls/hr IVPB DAILY [facility] Last Admin: 08/08/17 12:29 Dose: 105 mls/hr Ibuprofen (Motrin Tab) 400 mg PO Q6 PRN PRN Reason: Pain, moderate (4-7) Last Admin: 08/05/17 09:17 Dose: 400 mg Lactobacillus Acidophilus (Bacid Acidophilus) 1 cap PO BID [facility] Last Admin: 08/08/17 10:28 Dose: 1 cap Quetiapine Fumarate (Seroquel) 100 mg PO HS [facility] Last Admin: 08/07/17 21:23 Dose: 100 mg Trimethoprim/Sulfamethoxazole (Bactrim Ds Tab) 1 tab PO DAILY [facility] PRN Reason: Protocol Last Admin: 08/08/17 10:00 Dose: 1 tab - Labs Labs: 08/08/17 07:02 08/08/17 07:02 PT 14.8 Seconds (9.8-13.1) H 08/04/17 15:41 INR 1.3 (0.9-1.2) H 08/04/17 15:41 APTT 27.8 Seconds (25.6-37.1) 08/04/17 15:41 - Constitutional Appears: Well - Eye Exam Eye Exam: EOMI - Respiratory Exam Respiratory Exam: Clear to Ausculation Bilateral, NORMAL BREATHING PATTERN. absent: Wheezes - Cardiovascular Exam Cardiovascular Exam: REGULAR RHYTHM, +S1, +S2 - GI/Abdominal Exam GI & Abdominal Exam: Soft, Normal Bowel Sounds. absent: Tenderness - Extremities Exam Extremities Exam: Full ROM - Neurological Exam Neurological Exam: Alert, Awake, CN II-XII Intact, Oriented x3 - Psychiatric Exam Psychiatric exam: Normal Affect, Normal Mood Assessment and Plan - Assessment and Plan (Free Text) Plan: 47yo F wwith PMHx HIV and Depression admitted with B/l lower lobe PNA and sepsis. c/w IV abx L lower lobe HCAP -CXR: consolidation in the left lower lobe likely represents pneumonia, suspect developing right lower lobe pneumonia -Zosyn 4.5 GM IV Q6 day 4 -Vancomycin 1 gm IV Q12 day 5 -Azithromycin 500 mg QD day 4 -Bactrim DS 1 tab qD day 4 -Mucinex DM for cough -blood culture x2: NGTD -sputum culture: normal júnior -AFB, airborne precautions: negative x1; pending x2 -f/u mycoplasma serum: pending -urine legionella: neg -ID consult: Dr. 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 -IV Fe completed -PO iron -f/u cbc UPEP/SPEP with M spike -immunofixation serum, urine: pending Depression -resume home antidepressants as per Psych recs H/O prediabetes -HgBA1C 6.0 on 07/27/17 -patient requesting regular diet DVT prophylaxis -Encourage Ambulation -SCDs while in bed <Humera Moreno - Last Filed: 08/09/17 07:01> Objective - Vital Signs/Intake and Output Vital Signs (last 24 hours): Temp Pulse Resp BP Pulse Ox 98.2 F 82 18 105/64 97 08/09/17 05:05 08/09/17 05:05 08/09/17 05:05 08/09/17 05:05 08/09/17 05:05 - Medications Medications: Current Medications Acetaminophen (Tylenol 325mg Tab) 650 mg PO Q6 PRN PRN Reason: Fever >100.4 F Azithromycin (Zithromax) 500 mg PO DAILY [facility] PRN Reason: Protocol Last Admin: 08/08/17 10:00 Dose: 500 mg Bupropion HCl (Wellbutrin Sr 150 Mg) 150 mg PO DAILY [facility] Last Admin: 08/08/17 10:00 Dose: 150 mg Calcium/Vitamin D (Oyster Shell Calcium/Vitamin D 500 Mg-200 Iu) 1 tab PO DAILY [facility] Last Admin: 08/08/17 10:00 Dose: 1 tab Emollient Ointment (Vaseline Oint) 1 pkt TOP Q4 [facility] Last Admin: 08/09/17 05:56 Dose: Not Given Enoxaparin Sodium (Lovenox) 40 mg SC DAILY [facility] PRN Reason: Protocol Last Admin: 08/08/17 10:00 Dose: 40 mg Fluticasone Propionate (Flonase) 2 spr FREIDA DAILY [facility] Last Admin: 08/08/17 10:27 Dose: 2 spr Gabapentin (Neurontin) 100 mg PO TID [facility] Last Admin: 08/08/17 17:39 Dose: 100 mg Guaifenesin/Dextromethorphan (Mucinex-Dm 600-30 Mg) 1 tab PO BID [facility] Last Admin: 08/08/17 17:39 Dose: 1 tab Vancomycin HCl 1 gm/ Sodium (Chloride) 250 mls @ 166.667 mls/hr IVPB Q12 [facility] PRN Reason: Protocol Last Admin: 08/08/17 21:11 Dose: 166.667 mls/hr Piperacillin Sod/Tazobactam (Sod 4.5 gm/ Sodium Chloride) 100 mls @ 100 mls/hr IVPB Q6 [facility] PRN Reason: Protocol Last Admin: 08/09/17 04:41 Dose: 100 mls/hr Iron Sucrose 100 mg/ Sodium (Chloride) 105 mls @ 105 mls/hr IVPB DAILY [facility] Last Admin: 08/08/17 12:29 Dose: 105 mls/hr Ibuprofen (Motrin Tab) 400 mg PO Q6 PRN PRN Reason: Pain, moderate (4-7) Last Admin: 08/05/17 09:17 Dose: 400 mg Lactobacillus Acidophilus (Bacid Acidophilus) 1 cap PO BID [facility] Last Admin: 08/08/17 17:39 Dose: 1 cap Quetiapine Fumarate (Seroquel) 100 mg PO HS [facility] Last Admin: 08/08/17 21:11 Dose: 100 mg Trimethoprim/Sulfamethoxazole (Bactrim Ds Tab) 1 tab PO DAILY [facility] PRN Reason: Protocol Last Admin: 08/08/17 10:00 Dose: 1 tab - Labs Labs: 08/08/17 07:02 08/08/17 07:02 PT 14.8 Seconds (9.8-13.1) H 08/04/17 15:41 INR 1.3 (0.9-1.2) H 08/04/17 15:41 APTT 27.8 Seconds (25.6-37.1) 08/04/17 15:41 Attending/Attestation - Attestation I have personally seen and examined this patient.: Yes I have fully participated in the care of the patient.: Yes I have reviewed all pertinent clinical information, including history, physical exam and plan: Yes Notes (Text): 08/09/17 07:00 ATTENDING NOTE ATTESTATION - PATIENT SEEN AND EXAMINED. CASE DISCUSSED WITH RESIDENT. AGREE WITH FINDINGS AND PLAN.
[2017-08-09] MEDS: Petrolatum UD PAK TOP SCH ×7 (01:42→20:13)
[2017-08-09] MEDS: Piperacillin/Tazobact 4.5 GM in Sodium Chloride 0.9% 100 ML IVPB SCH ×4 (04:41→23:00)
[2017-08-09 08:24] LABS: HEMOGLOBIN 10.3 g/dL (12.0-16.0); MEAN CELL VOLUME 77.1 fl (81.0-99.0); MEAN CORPUSCULAR HEMOGLOBIN 25.1 pg (27.0-31.0); MEAN CORPUSCULAR HGB CONC 32.5 g/dL (33.0-37.0); RBC 4.09 Mil/uL (3.80-5.20); RED CELL DISTRIBUTION WIDTH 14.9 % (11.5-14.5); WHITE BLOOD COUNT 3.9 K/uL (4.8-10.8)
[2017-08-09] MEDS: guaiFENesin-DM 600-30 mg ER Tab PO SCH ×2 (08:37→16:49)
[2017-08-09] MEDS: Calcium-Vit D 500 mg-200 Units Tab UD PO SCH (08:37)
[2017-08-09] MEDS: buPROPion SR 150 MG TABLET PO SCH (08:39)
[2017-08-09 08:56] LABS: ALB/GLOB RATIO 0.6 (1.0-2.1); ALBUMIN 3.3 g/dL (3.5-5.0); ALT/SGPT 21 U/L (9-52); AST/SGOT 36 U/L (14-36); BLOOD UREA NITROGEN 7 mg/dl (7-17); CALCIUM 8.7 mg/dL (8.4-10.2); GFR AFRICAN-AMERICAN > 60; GFR NON-AFRICAN AMERICAN > 60
[2017-08-09] MEDS: Enoxaparin 40 mg Syringe SC SCH (09:43)
--- NOTE | 2017-08-09 10:00 | CP.PCM.PN ---
Subjective - Date & Time of Evaluation Date of Evaluation: 08/09/17 Time of Evaluation: 08:30 - Subjective Subjective: pt seen and examined at bedside. denies significant events. Denies SOB/cp/n/v. tolerating po diet. producing sputum for 3rd cultures. Objective - Vital Signs/Intake and Output Vital Signs (last 24 hours): Temp Pulse Resp BP Pulse Ox 97.8 F 75 20 114/69 96 08/09/17 08:27 08/09/17 08:27 08/09/17 08:27 08/09/17 08:27 08/09/17 08:27 - Medications Medications: Current Medications Acetaminophen (Tylenol 325mg Tab) 650 mg PO Q6 PRN PRN Reason: Fever >100.4 F Azithromycin (Zithromax) 500 mg PO DAILY [facility] [place] PRN Reason: Protocol Last Admin: 08/09/17 08:39 Dose: 500 mg Bupropion HCl (Wellbutrin Sr 150 Mg) 150 mg PO DAILY [facility] Last Admin: 08/09/17 08:39 Dose: 150 mg Calcium/Vitamin D (Oyster Shell Calcium/Vitamin D 500 Mg-200 Iu) 1 tab PO DAILY [facility] Last Admin: 08/09/17 08:37 Dose: 1 tab Emollient Ointment (Vaseline Oint) 1 pkt TOP Q4 [facility] Last Admin: 08/09/17 08:38 Dose: 1 pkt Enoxaparin Sodium (Lovenox) 40 mg SC DAILY [facility] PRN Reason: Protocol Last Admin: 08/09/17 09:43 Dose: 40 mg Fluticasone Propionate (Flonase) 2 spr FREIDA DAILY [facility] [place] Last Admin: 08/09/17 08:36 Dose: 2 spr Gabapentin (Neurontin) 100 mg PO TID [facility] Last Admin: 08/09/17 08:37 Dose: 100 mg Guaifenesin/Dextromethorphan (Mucinex-Dm 600-30 Mg) 1 tab PO BID [facility] [place] Last Admin: 08/09/17 08:37 Dose: 1 tab Vancomycin HCl 1 gm/ Sodium (Chloride) 250 mls @ 166.667 mls/hr IVPB Q12 [facility] PRN Reason: Protocol Last Admin: 08/09/17 08:37 Dose: 166.667 mls/hr Piperacillin Sod/Tazobactam (Sod 4.5 gm/ Sodium Chloride) 100 mls @ 100 mls/hr IVPB Q6 [facility] PRN Reason: Protocol Last Admin: 08/09/17 09:40 Dose: 100 mls/hr Iron Sucrose 100 mg/ Sodium (Ch[facility]) 105 mls @ 105 mls/hr IVPB DAILY [facility] [place] Last Admin: 08/09/17 09:39 Dose: 105 mls/hr Ibuprofen (Motrin Tab) 400 mg PO Q6 PRN PRN Reason: Pain, moderate (4-7) Last Admin: 08/05/17 09:17 Dose: 400 mg Lactobacillus Acidophilus (Bacid Acidophilus) 1 cap PO BID [facility] Last Admin: 08/08/17 17:39 Dose: 1 cap Quetiapine Fumarate (Seroquel) 100 mg PO HS [facility] [place] Last Admin: 08/08/17 21:11 Dose: 100 mg - Labs Labs: 08/09/17 07:55 08/09/17 07:55 PT 14.8 Seconds (9.8-13.1) H 08/04/17 15:41 INR 1.3 (0.9-1.2) H 08/04/17 15:41 APTT 27.8 Seconds (25.6-37.1) 08/04/17 15:41 - Constitutional Appears: Well, No Acute Distress - Head Exam Head Exam: ATRAUMATIC - Eye Exam Eye Exam: EOMI - Neck Exam Neck Exam: Full ROM - Respiratory Exam Respiratory Exam: Clear to Ausculation Bilateral, NORMAL BREATHING PATTERN. absent: Wheezes - Cardiovascular Exam Cardiovascular Exam: REGULAR RHYTHM, +S1, +S2 - GI/Abdominal Exam GI & Abdominal Exam: Soft, Normal Bowel Sounds. absent: Tenderness - Neurological Exam Neurological Exam: Alert, Awake, CN II-XII Intact, Oriented x3 - Psychiatric Exam Psychiatric exam: Normal Affect, Normal Mood Assessment and Plan - Assessment and Plan (Free Text) Plan: 47yo F wwith PMHx HIV and Depression admitted with B/l lower lobe PNA and sepsis. c/w IV abx L lower lobe HCAP -CXR: consolidation in the left lower lobe likely represents pneumonia, suspect developing right lower lobe pneumonia -Zosyn 4.5 GM IV Q6 day 5 -Vancomycin 1 gm IV Q12 day 6; trough 08/08/2017: 6.8 -Azithromycin 500 mg QD day 5 -Bactrim DS 1 tab qD day 5 -Mucinex DM for cough -blood culture x2: NGTD -sputum culture: normal júnior -AFB, airborne precautions: negative x1; pending x2 -f/u mycoplasma serum: pending -urine legionella: neg -ID consult: Dr. 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
--- NOTE | 2017-08-09 10:52 | CP.PCM.PN ---
Subjective - Date & Time of Evaluation Date of Evaluation: 08/09/17 Time of Evaluation: 10:52 - Subjective Subjective: ID Note- Pt. seen and examined today. denies any fever or chills. states her breathing is much improved. Objective - Vital Signs/Intake and Output Vital Signs (last 24 hours): Temp Pulse Resp BP Pulse Ox 97.8 F 75 20 114/69 96 08/09/17 08:27 08/09/17 08:27 08/09/17 08:27 08/09/17 08:27 08/09/17 08:27 - Medications Medications: Current Medications Acetaminophen (Tylenol 325mg Tab) 650 mg PO Q6 PRN PRN Reason: Fever >100.4 F Azithromycin (Zithromax) 500 mg PO DAILY [facility] PRN Reason: Protocol Last Admin: 08/09/17 08:39 Dose: 500 mg Bupropion HCl (Wellbutrin Sr 150 Mg) 150 mg PO DAILY [facility] Last Admin: 08/09/17 08:39 Dose: 150 mg Calcium/Vitamin D (Oyster Shell Calcium/Vitamin D 500 Mg-200 Iu) 1 tab PO DAILY [facility] Last Admin: 08/09/17 08:37 Dose: 1 tab Emollient Ointment (Vaseline Oint) 1 pkt TOP Q4 [facility] Last Admin: 08/09/17 08:38 Dose: 1 pkt Enoxaparin Sodium (Lovenox) 40 mg SC DAILY [facility] PRN Reason: Protocol Last Admin: 08/09/17 09:43 Dose: 40 mg Fluticasone Propionate (Flonase) 2 spr FREIDA DAILY [facility] Last Admin: 08/09/17 08:36 Dose: 2 spr Gabapentin (Neurontin) 100 mg PO TID [facility] Last Admin: 08/09/17 08:37 Dose: 100 mg Guaifenesin/Dextromethorphan (Mucinex-Dm 600-30 Mg) 1 tab PO BID [facility] Last Admin: 08/09/17 08:37 Dose: 1 tab Vancomycin HCl 1 gm/ Sodium (Chloride) 250 mls @ 166.667 mls/hr IVPB Q12 [facility] PRN Reason: Protocol Last Admin: 08/09/17 08:37 Dose: 166.667 mls/hr Piperacillin Sod/Tazobactam (Sod 4.5 gm/ Sodium Chloride) 100 mls @ 100 mls/hr IVPB Q6 [facility] PRN Reason: Protocol Last Admin: 08/09/17 09:40 Dose: 100 mls/hr Iron Sucrose 100 mg/ Sodium (Chloride) 105 mls @ 105 mls/hr IVPB DAILY [facility] Last Admin: 08/09/17 09:39 Dose: 105 mls/hr Ibuprofen (Motrin Tab) 400 mg PO Q6 PRN PRN Reason: Pain, moderate (4-7) Last Admin: 08/05/17 09:17 Dose: 400 mg Lactobacillus Acidophilus (Bacid Acidophilus) 1 cap PO BID [facility] Last Admin: 08/08/17 17:39 Dose: 1 cap Quetiapine Fumarate (Seroquel) 100 mg PO HS [facility] Last Admin: 08/08/17 21:11 Dose: 100 mg - Labs Labs: - Additional Findings Additional findings: - Constitutional Appears: No Acute Distress - Head Exam Head Exam: ATRAUMATIC - Eye Exam Eye Exam: EOMI, PERRL - Neck Exam Neck exam: Positive for: Full Rom - Respiratory Exam Respiratory Exam: NORMAL BREATHING PATTERN Additional comments: much better breath sounds b/l no wheezing - Cardiovascular Exam Cardiovascular Exam: RRR, +S1, +S2 - GI/Abdominal Exam GI & Abdominal Exam: Normal Bowel Sounds, Soft Additional comments: NT, ND - Extremities Exam Extremities exam: Positive for: normal inspection - Neurological Exam Neurological exam: Alert, Oriented x 3 Laboratory Results - last 72 hr 08/06/17 08/07/17 08/07/17 07:36 06:38 06:38 WBC 3.6 L RBC 3.70 L Hgb 9.2 L Hct 28.7 L MCV 77.6 L MCH 24.8 L MCHC 32.0 L RDW 14.9 H Plt Count 335 MPV Neut % (Auto) Lymph % (Auto) [place] % (Auto) Eos % (Auto) Baso % (Auto) Neut # (Auto) Lymph # (Auto) [place] # (Auto) Eos # (Auto) Baso # (Auto) Sodium 142 Potassium 4.0 Chloride 109 H Carbon Dioxide 22 Anion Gap 15 BUN 4 L Creatinine 0.6 L Est GFR ( Amer) > 60 Est GFR (Non-Af Amer) > 60 Random Glucose 89 Calcium 8.1 L Total Bilirubin 0.2 AST 22 ALT 30 Alkaline Phosphatase 53 Total Protein 8.2 Albumin 2.8 L D Globulin 5.4 H Albumin/Globulin Ratio 0.5 L Vancomycin Trough Ur L.pneumophila Ag Negative 08/08/17 08/08/17 08/08/17 07:02 07:02 07:54 WBC 3.9 L RBC 3.92 Hgb 9.8 L Hct 30.6 L MCV 78.0 L MCH 25.0 L MCHC 32.1 L RDW 14.5 Plt Count 355 MPV 7.9 Neut % (Auto) 55.0 Lymph % (Auto) 26.5 [place] % (Auto) 15.4 H Eos % (Auto) 2.3 Baso % (Auto) 0.8 Neut # (Auto) 2.2 Lymph # (Auto) 1.0 [place] # (Auto) 0.6 Eos # (Auto) 0.1 Baso # (Auto) 0.0 Sodium 143 Potassium 4.3 Chloride 104 Carbon Dioxide 26 Anion Gap 17 BUN 6 L Creatinine 0.8 Est GFR ( Amer) > 60 Est GFR (Non-Af Amer) > 60 Random Glucose 79 Calcium 8.4 Total Bilirubin AST ALT Alkaline Phosphatase Total Protein Albumin Globulin Albumin/Globulin Ratio Vancomycin Trough 6.8 Ur L.pneumophila Ag 08/09/17 08/09/17 07:55 07:55 WBC 3.9 L RBC 4.09 Hgb 10.3 L Hct 31.5 L MCV 77.1 L MCH 25.1 L MCHC 32.5 L RDW 14.9 H Plt Count 370 MPV Neut % (Auto) Lymph % (Auto) [place] % (Auto) Eos % (Auto) Baso % (Auto) Neut # (Auto) Lymph # (Auto) [place] # (Auto) Eos # (Auto) Baso # (Auto) Sodium 140 Potassium 4.5 Chloride 104 Carbon Dioxide 25 Anion Gap 16 BUN 7 Creatinine 0.6 L Est GFR ( Amer) > 60 Est GFR (Non-Af Amer) > 60 Random Glucose 79 Calcium 8.7 Total Bilirubin 0.2 AST 36 D ALT 21 Alkaline Phosphatase 58 Total Protein 8.9 H Albumin 3.3 L Globulin 5.6 H Albumin/Globulin Ratio 0.6 L Vancomycin Trough Ur L.pneumophila Ag Microbiology 08/04/17 15:45 Blood Blood Culture - Preliminary NO GROWTH AFTER 4 DAYS 08/04/17 15:05 Blood Blood Culture - Preliminary NO GROWTH AFTER 4 DAYS 08/06/17 17:14 Other: Please Indicate Mycobacterial Culture - Preliminary 08/05/17 09:59 Sputum Gram Stain - Final 08/05/17 09:59 Sputum Sputum Culture - Final NORMAL ORAL KATY 08/04/17 16:52 Urine Urine Culture - Final <10,000 CFU/ML. MULTIPLE SPECIES. PROBABLE CONTAMINATION. Assessment and Plan (1) Pneumonia Status: Acute (2) HIV (human immunodeficiency virus infection) Status: Chronic (3) Cough Status: Acute (4) Fever Status: Acute - Assessment and Plan (Free Text) Assessment: A/P- 47 year old HIV positive female admitted with fever, cough found to have pneumonia on cxr. clinically much improved. afebrile leukocytosis resolved. blood cx- neg x 2 urine cx- neg urine legionella AG- neg being ruled out for sputum AFB as per Primary team ( very low suspicion of this) . sputum AFB smear - neg x 1 sputum cx- neg plan- continue with with IV zosyn and vanco to cover for HAP. day #4 keep vanco trough <15. d/c zithromax today. await cd4 and HIV Vl. All above d/w patient and she verbalizes full understanding of all above and agrees with above plan of care. All above also d/w family practice team.
[2017-08-09] MEDS: Lactobacillus Acidophilus 500 MU Cap PO SCH ×2 (13:46→16:50)
[2017-08-10] MEDS: Petrolatum UD PAK TOP SCH ×6 (01:05→21:48)
[2017-08-10] MEDS: Piperacillin/Tazobact 4.5 GM in Sodium Chloride 0.9% 100 ML IVPB SCH (07:08)
[2017-08-10 07:42] LABS: % CD4 (T HELPER CELL) 45 Percent (30-61); % CD8 (SUPPRESSOR T CELL) 44 Percent (12-42); ABSOLUTE CD4 CELLS 253 Cells/mcL (490-1740); ABSOLUTE CD8 CELLS 252 Cells/mcL (180-1170); ABSOLUTE LYMPHOCYTES 568 Cells/mcL (850-3900); HELPER/SUPPRESSOR RATIO 1.01 Ratio (0.86-5.00)
--- NOTE | 2017-08-10 09:28 | CP.PCM.PN ---
Subjective - Date & Time of Evaluation Date of Evaluation: 08/10/17 Time of Evaluation: 08:10 - Subjective Subjective: Pt seen and examined at bedside. Reports no SOB. Denies significant overnight events. Denies CP/N/V. Tolerating PO diet. Ambulating in room. Objective - Vital Signs/Intake and Output Vital Signs (last 24 hours): Temp Pulse Resp BP Pulse Ox 98.3 F 70 20 104/59 L 98 08/10/17 08:13 08/10/17 08:13 08/10/17 08:13 08/10/17 08:13 08/10/17 08:13 - Medications Medications: Current Medications Acetaminophen (Tylenol 325mg Tab) 650 mg PO Q6 PRN PRN Reason: Fever >100.4 F Bupropion HCl (Wellbutrin Sr 150 Mg) 150 mg PO DAILY [facility] Last Admin: 08/09/17 08:39 Dose: 150 mg Calcium/Vitamin D (Oyster Shell Calcium/Vitamin D 500 Mg-200 Iu) 1 tab PO DAILY [facility] Last Admin: 08/09/17 08:37 Dose: 1 tab Emollient Ointment (Vaseline Oint) 1 pkt TOP Q4 [facility] Last Admin: 08/10/17 05:16 Dose: Not Given Enoxaparin Sodium (Lovenox) 40 mg SC DAILY [facility] PRN Reason: Protocol Last Admin: 08/09/17 09:43 Dose: 40 mg Fluticasone Propionate (Flonase) 2 spr FREIDA DAILY [facility] Last Admin: 08/09/17 08:36 Dose: 2 spr Gabapentin (Neurontin) 100 mg PO TID [facility] Last Admin: 08/09/17 16:48 Dose: 100 mg Guaifenesin/Dextromethorphan (Mucinex-Dm 600-30 Mg) 1 tab PO BID [facility] Last Admin: 08/09/17 16:49 Dose: 1 tab Iron Sucrose 100 mg/ Sodium (Chloride) 105 mls @ 105 mls/hr IVPB DAILY [facility] Last Admin: 08/09/17 09:39 Dose: 105 mls/hr Ibuprofen (Motrin Tab) 400 mg PO Q6 PRN PRN Reason: Pain, moderate (4-7) Last Admin: 08/09/17 15:40 Dose: 400 mg Lactobacillus Acidophilus (Bacid Acidophilus) 1 cap PO BID [facility] Last Admin: 08/09/17 16:50 Dose: 1 cap Quetiapine Fumarate (Seroquel) 100 mg PO HS [facility] Last Admin: 08/09/17 22:00 Dose: 100 mg - Labs Labs: 08/09/17 07:55 08/09/17 07:55 PT 14.8 Seconds (9.8-13.1) H 08/04/17 15:41 INR 1.3 (0.9-1.2) H 08/04/17 15:41 APTT 27.8 Seconds (25.6-37.1) 08/04/17 15:41 - Constitutional Appears: Well, No Acute Distress - Eye Exam Eye Exam: EOMI - Respiratory Exam Respiratory Exam: Clear to Ausculation Bilateral, NORMAL BREATHING PATTERN. absent: Wheezes - Cardiovascular Exam Cardiovascular Exam: REGULAR RHYTHM, +S1, +S2 - GI/Abdominal Exam GI & Abdominal Exam: Soft, Normal Bowel Sounds. absent: Tenderness - Extremities Exam Extremities Exam: absent: Calf Tenderness - Neurological Exam Neurological Exam: Alert, Awake, CN II-XII Intact, Oriented x3 - Psychiatric Exam Psychiatric exam: Normal Affect, Normal Mood Assessment and Plan - Assessment and Plan (Free Text) Plan: 47yo F wwith PMHx HIV and Depression admitted with B/l lower lobe PNA and sepsis. c/w IV abx L lower lobe HCAP -CXR: consolidation in the left lower lobe likely represents pneumonia, suspect developing right lower lobe pneumonia -Zosyn 4.5 GM IV Q6 day 6 -Vancomycin 1 gm IV Q12 day 7; trough 08/08/2017: 6.8 -s/p Azithromycin 500 mg QD day 5; discontinued -Bactrim DS 1 tab qD day 5 -Mucinex DM for cough -blood culture x2: NG x 5 days -sputum culture: normal júnior -AFB, airborne precautions: negative x2; pending x1 -f/u mycoplasma serum: pending -urine legionella: neg -ID consult: Dr. 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 Consider colonoscopy OP. UPEP/SPEP with M spike -immunofixation serum, urine: pending Depression -resume home antidepressants as per Psych recs H/O prediabetes -HgBA1C 6.0 on 07/27/17 -patient requesting regular diet DVT prophylaxis -Encourage Ambulation -SCDs while in bed
[2017-08-10] MEDS: Enoxaparin 40 mg Syringe SC SCH (10:09)
[2017-08-10] MEDS: guaiFENesin-DM 600-30 mg ER Tab PO SCH ×2 (10:10→16:49)
[2017-08-10] MEDS: buPROPion SR 150 MG TABLET PO SCH (10:10)
[2017-08-10] MEDS: Calcium-Vit D 500 mg-200 Units Tab UD PO SCH (10:10)
[2017-08-10] MEDS: Lactobacillus Acidophilus 500 MU Cap PO SCH ×2 (10:13→16:50)
[2017-08-10 11:32] LABS: HEMOGLOBIN 10.1 g/dL (12.0-16.0); MEAN CELL VOLUME 77.8 fl (81.0-99.0); MEAN CORPUSCULAR HEMOGLOBIN 25.3 pg (27.0-31.0); MEAN CORPUSCULAR HGB CONC 32.5 g/dL (33.0-37.0); RBC 3.99 Mil/uL (3.80-5.20); RED CELL DISTRIBUTION WIDTH 14.8 % (11.5-14.5); WHITE BLOOD COUNT 4.2 K/uL (4.8-10.8)
[2017-08-10 11:52] LABS: BLOOD UREA NITROGEN 6 mg/dl (7-17); CALCIUM 8.6 mg/dL (8.4-10.2); GFR AFRICAN-AMERICAN > 60; GFR NON-AFRICAN AMERICAN > 60
[2017-08-10] MEDS ORDERED: Docusate-Senna 50 mg-8.6 mg Tab PO SCH (22:00)
[2017-08-11] MEDS: Petrolatum UD PAK TOP SCH ×2 (01:25→09:39)
[2017-08-11] MEDS: Calcium-Vit D 500 mg-200 Units Tab UD PO SCH (09:38)
[2017-08-11] MEDS: Lactobacillus Acidophilus 500 MU Cap PO SCH (09:38)
[2017-08-11] MEDS: buPROPion SR 150 MG TABLET PO SCH (09:38)
[2017-08-11] MEDS: guaiFENesin-DM 600-30 mg ER Tab PO SCH (09:39)
[2017-08-11] MEDS ORDERED: Enoxaparin 40 mg Syringe SC SCH (10:00)
--- NOTE | 2017-08-11 10:26 | CP.PCM.PN ---
Subjective - Date & Time of Evaluation Date of Evaluation: 08/11/17 Time of Evaluation: 08:20 Objective - Vital Signs/Intake and Output Vital Signs (last 24 hours): Temp Pulse Resp BP Pulse Ox 98 F 69 18 126/76 97 08/11/17 08:00 08/11/17 08:00 08/11/17 08:00 08/11/17 08:00 08/11/17 08:00 - Medications Medications: Current Medications Acetaminophen (Tylenol 325mg Tab) 650 mg PO Q6 PRN PRN Reason: Fever >100.4 F Bupropion HCl (Wellbutrin Sr 150 Mg) 150 mg PO DAILY [facility] Last Admin: 08/11/17 09:38 Dose: 150 mg Calcium/Vitamin D (Oyster Shell Calcium/Vitamin D 500 Mg-200 Iu) 1 tab PO DAILY [facility] Last Admin: 08/11/17 09:38 Dose: 1 tab Emollient Ointment (Vaseline Oint) 1 pkt TOP Q4 [facility] Last Admin: 08/11/17 09:39 Dose: 1 pkt Enoxaparin Sodium (Lovenox) 40 mg SC DAILY [facility] PRN Reason: Protocol Ferrous Sulfate (Feosol) 325 mg PO BID [facility] Last Admin: 08/11/17 09:38 Dose: 325 mg Fluticasone Propionate (Flonase) 2 spr FREIDA DAILY [facility] Last Admin: 08/11/17 09:38 Dose: 2 spr Gabapentin (Neurontin) 100 mg PO TID [facility] Last Admin: 08/11/17 09:38 Dose: 100 mg Guaifenesin/Dextromethorphan (Mucinex-Dm 600-30 Mg) 1 tab PO BID [facility] Last Admin: 08/11/17 09:39 Dose: 1 tab Ibuprofen (Motrin Tab) 400 mg PO Q6 PRN PRN Reason: Pain, moderate (4-7) Last Admin: 08/10/17 21:47 Dose: 400 mg Lactobacillus Acidophilus (Bacid Acidophilus) 1 cap PO BID [facility] Last Admin: 08/11/17 09:38 Dose: 1 cap Quetiapine Fumarate (Seroquel) 100 mg PO [facility] Last Admin: 08/10/17 21:48 Dose: 100 mg Senna/Docusate Sodium (Senokot S 50 Mg-8.6 Mg) 1 tab PO HS [facility] Last Admin: 08/10/17 21:48 Dose: Not Given - Labs Labs: 08/10/17 11:18 08/10/17 11:18 PT 14.8 Seconds (9.8-13.1) H 08/04/17 15:41 INR 1.3 (0.9-1.2) H 08/04/17 15:41 APTT 27.8 Seconds (25.6-37.1) 08/04/17 15:41
--- NOTE | 2017-08-11 10:53 | CP.PCM.PN ---
Subjective - Date & Time of Evaluation Date of Evaluation: 08/11/17 Time of Evaluation: 15:22 - Subjective Subjective: ID Note- Pt. seen and examined today. Pt. feels very well and denies any complaints. sputum AFB - neg x 3 being d/c home today. Objective - Vital Signs/Intake and Output Vital Signs (last 24 hours): Temp Pulse Resp BP Pulse Ox 98 F 69 18 126/76 97 08/11/17 08:00 08/11/17 08:00 08/11/17 08:00 08/11/17 08:00 08/11/17 08:00 - Medications Medications: Current Medications Acetaminophen (Tylenol 325mg Tab) 650 mg PO Q6 PRN PRN Reason: Fever >100.4 F Bupropion HCl (Wellbutrin Sr 150 Mg) 150 mg PO DAILY [facility] Last Admin: 08/11/17 09:38 Dose: 150 mg Calcium/Vitamin D (Oyster Shell Calcium/Vitamin D 500 Mg-200 Iu) 1 tab PO DAILY [facility] Last Admin: 08/11/17 09:38 Dose: 1 tab Emollient Ointment (Vaseline Oint) 1 pkt TOP Q4 [facility] Last Admin: 08/11/17 09:39 Dose: 1 pkt Enoxaparin Sodium (Lovenox) 40 mg SC DAILY [facility] PRN Reason: Protocol Ferrous Sulfate (Feosol) 325 mg PO BID [facility] Last Admin: 08/11/17 09:38 Dose: 325 mg Fluticasone Propionate (Flonase) 2 spr FREIDA DAILY [facility] Last Admin: 08/11/17 09:38 Dose: 2 spr Gabapentin (Neurontin) 100 mg PO TID [facility] Last Admin: 08/11/17 09:38 Dose: 100 mg Guaifenesin/Dextromethorphan (Mucinex-Dm 600-30 Mg) 1 tab PO BID [facility] Last Admin: 08/11/17 09:39 Dose: 1 tab Ibuprofen (Motrin Tab) 400 mg PO Q6 PRN PRN Reason: Pain, moderate (4-7) Last Admin: 08/10/17 21:47 Dose: 400 mg Lactobacillus Acidophilus (Bacid Acidophilus) 1 cap PO BID [facility] Last Admin: 08/11/17 09:38 Dose: 1 cap Quetiapine Fumarate (Seroquel) 100 mg PO HS [facility] Last Admin: 08/10/17 21:48 Dose: 100 mg Senna/Docusate Sodium (Senokot S 50 Mg-8.6 Mg) 1 tab PO HS [facility] Last Admin: 08/10/17 21:48 Dose: Not Given - Labs Labs: - Constitutional Appears: No Acute Distress - Head Exam Head Exam: ATRAUMATIC - Eye Exam Eye Exam: EOMI - ENT Exam ENT Exam: Normal Oropharynx - Neck Exam Neck Exam: Full ROM - Respiratory Exam Respiratory Exam: NORMAL BREATHING PATTERN Additional comments: good breath sounds b/l no wheezing - Cardiovascular Exam Cardiovascular Exam: RRR, +S1, +S2 - GI/Abdominal Exam GI & Abdominal Exam: Soft, Normal Bowel Sounds Additional comments: NT, ND - Extremities Exam Extremities Exam: Normal Inspection - Neurological Exam Neurological Exam: Alert, Awake, Oriented x3 - Additional Findings Additional findings: Laboratory Results - last 72 hr 08/05/17 08/06/17 08/06/17 14:30 05:10 05:10 WBC RBC Hgb Hct MCV MCH MCHC RDW Plt Count Sodium Potassium Chloride Carbon Dioxide Anion Gap BUN Creatinine Est GFR ( Amer) Est GFR (Non-Af Amer) Random Glucose Calcium Total Bilirubin AST ALT Alkaline Phosphatase Total Protein Albumin Globulin Albumin/Globulin Ratio Stool Occult Blood Serum Immunofixation Detected H Absolute Lymphs (Flow) 568 L % CD4 Cells 45 Absolute CD4 Count 253 L T-Help/Suppress Ratio 1.01 % CD8 Cells 44 H Absolute CD8 Count 252 T-Lymph Analys Comment See note HIV-1 RNA copies/mL [id number] H HIV-1 RNA logcopies/mL 5.31 H Mycoplasma pneumon IgG TNP Mycoplasma pneumon IgM TNP 08/09/17 08/09/17 08/10/17 07:55 07:55 11:18 WBC 3.9 L 4.2 L RBC 4.09 3.99 Hgb 10.3 L 10.1 L Hct 31.5 L 31.0 L MCV 77.1 L 77.8 L MCH 25.1 L 25.3 L MCHC 32.5 L 32.5 L RDW 14.9 H 14.8 H Plt Count 370 376 Sodium 140 Potassium 4.5 Chloride 104 Carbon Dioxide 25 Anion Gap 16 BUN 7 Creatinine 0.6 L Est GFR ( Amer) > 60 Est GFR (Non-Af Amer) > 60 Random Glucose 79 Calcium 8.7 Total Bilirubin 0.2 AST 36 D ALT 21 Alkaline Phosphatase 58 Total Protein 8.9 H Albumin 3.3 L Globulin 5.6 H Albumin/Globulin Ratio 0.6 L Stool Occult Blood Serum Immunofixation Absolute Lymphs (Flow) % CD4 Cells Absolute CD4 Count T-Help/Suppress Ratio % CD8 Cells Absolute CD8 Count T-Lymph Analys Comment HIV-1 RNA copies/mL HIV-1 RNA logcopies/mL Mycoplasma pneumon IgG Mycoplasma pneumon IgM 08/10/17 08/10/17 11:18 21:42 WBC RBC Hgb Hct MCV MCH MCHC RDW Plt Count Sodium 141 Potassium 4.0 Chloride 106 Carbon Dioxide 22 Anion Gap 17 BUN 6 L Creatinine 0.6 L Est GFR ( Amer) > 60 Est GFR (Non-Af Amer) > 60 Random Glucose 125 H Calcium 8.6 Total Bilirubin AST ALT Alkaline Phosphatase Total Protein Albumin Globulin Albumin/Globulin Ratio Stool Occult Blood Negative Serum Immunofixation Absolute Lymphs (Flow) % CD4 Cells Absolute CD4 Count T-Help/Suppress Ratio % CD8 Cells Absolute CD8 Count T-Lymph Analys Comment HIV-1 RNA copies/mL HIV-1 RNA logcopies/mL Mycoplasma pneumon IgG Mycoplasma pneumon IgM Microbiology 08/08/17 20:30 Other: Please Indicate Mycobacterial Culture - Preliminary 08/07/17 19:20 Other: Please Indicate Mycobacterial Culture - Preliminary 08/04/17 15:45 Blood Blood Culture - Final NO GROWTH AFTER 5 DAYS 08/04/17 15:45 Blood Gram Stain - Final TEST NOT PERFORMED 08/04/17 15:05 Blood Blood Culture - Final NO GROWTH AFTER 5 DAYS 08/06/17 17:14 Other: Please Indicate Mycobacterial Culture - Preliminary 08/05/17 09:59 Sputum Gram Stain - Final 08/05/17 09:59 Sputum Sputum Culture - Final NORMAL ORAL KATY 08/04/17 16:52 Urine Urine Culture - Final <10,000 CFU/ML. MULTIPLE SPECIES. PROBABLE CONTAMINATION. Assessment and Plan (1) Pneumonia Status: Acute (2) HIV (human immunodeficiency virus infection) Status: Chronic (3) Cough Status: Acute (4) Fever Status: Acute - Assessment and Plan (Free Text) Assessment: A/P- 47 year old HIV positive female admitted with fever, cough found to have pneumonia on cxr. clinically much improved. has remained afebrile. leukocytosis resolved. blood cx- neg x 2 urine cx- neg urine legionella AG- neg sputum AFB smear - neg x 3 sputum cx- neg CD4- 253 VL- plan- has completed 6 days of IV zosyn and vanco. can d/c IV abx today. also completed zithromax therapy. pt. to be d/c home on oral levaquin 750 mg once a day for 7 days. check cxr as outpatient for resolution of her pneumonia. also advised pt. at length to see her HIV doctor next week to be initiated on HAART regimen as her CD4 is getting low and has high VL now. all above d/w patient at length and she verbalizes full understanding of all above and agrees with above plan of care. all above also d/w family practice team.
[2017-08-11] MEDS ORDERED: Piperacillin/Tazobact 4.5 GM in Sodium Chloride 0.9% 100 ML IVPB SCH (16:00)
[2017-08-11 16:04] VITALS: BP 125/85; PULSE 80; RESP 16; TEMP 98; O2SAT 99
--- NOTE | 2017-08-11 18:07 | CP.PCM.DIS ---
Provider - Provider Date of Admission: 08/04/17 17:56 Attending physician: Danita Del Cid MD Time Spent in preparation of Discharge (in minutes): 20 Diagnosis - Discharge Diagnosis (1) Pneumonia Status: Acute Hospital Course - Lab Results Lab Results: Micro Results 08/08/17 20:30 Other: Please Indicate Mycobacterial Culture - Preliminary 08/07/17 19:20 Other: Please Indicate Mycobacterial Culture - Preliminary 08/04/17 15:45 Blood Blood Culture - Final NO GROWTH AFTER 5 DAYS 08/04/17 15:45 Blood Gram Stain - Final TEST NOT PERFORMED 08/04/17 15:05 Blood Blood Culture - Final NO GROWTH AFTER 5 DAYS 08/06/17 17:14 Other: Please Indicate Mycobacterial Culture - Preliminary 08/05/17 09:59 Sputum Gram Stain - Final 08/05/17 09:59 Sputum Sputum Culture - Final NORMAL ORAL JÚNIOR 08/04/17 16:52 Urine Urine Culture - Final <10,000 CFU/ML. MULTIPLE SPECIES. PROBABLE CONTAMINATION. Most Recent Lab Values WBC 4.2 K/uL (4.8-10.8) L 08/10/17 11:18 RBC 3.99 Mil/uL (3.80-5.20) 08/10/17 11:18 Hgb 10.1 g/dL (12.0-16.0) L 08/10/17 11:18 Hct 31.0 % (34.0-47.0) L 08/10/17 11:18 MCV 77.8 fl (81.0-99.0) L 08/10/17 11:18 MCH 25.3 pg (27.0-31.0) L 08/10/17 11:18 MCHC 32.5 g/dL (33.0-37.0) L 08/10/17 11:18 RDW 14.8 % (11.5-14.5) H 08/10/17 11:18 Plt Count 376 K/uL (130-400) 08/10/17 11:18 MPV 7.9 fl (7.2-11.7) 08/08/17 07:02 Neut % (Auto) 55.0 % (50.0-75.0) 08/08/17 07:02 Lymph % (Auto) 26.5 % (20.0-40.0) 08/08/17 07:02 [place] % (Auto) 15.4 % (0.0-10.0) H 08/08/17 07:02 Eos % (Auto) 2.3 % (0.0-4.0) 08/08/17 07:02 Baso % (Auto) 0.8 % (0.0-2.0) 08/08/17 07:02 Neut # (Auto) 2.2 K/uL (1.8-7.0) 08/08/17 07:02 Lymph # (Auto) 1.0 K/uL (1.0-4.3) 08/08/17 07:02 [place] # (Auto) 0.6 K/uL (0.0-0.8) 08/08/17 07:02 Eos # (Auto) 0.1 K/uL (0.0-0.7) 08/08/17 07:02 Baso # (Auto) 0.0 K/uL (0.0-0.2) 08/08/17 07:02 Neutrophils % (Manual) 74 % (42-75) 08/04/17 15:40 Band Neutrophils % 5 % (0-2) H 08/04/17 15:40 Lymphocytes % (Manual) 13 % (20-50) L 08/04/17 15:40 Monocytes % (Manual) 8 % (0-10) 08/04/17 15:40 Smudge Cells Present 08/04/17 15:40 Platelet Estimate Normal (NORMAL) 08/04/17 15:40 Polychromasia Slight 08/04/17 15:40 Hypochromasia (manual) Slight 08/04/17 15:40 Poikilocytosis (manual Slight 08/04/17 15:40 Anisocytosis (manual) Moderate 08/04/17 15:40 Microcytosis (manual) Moderate 08/04/17 15:40 Ovalocytes Slight 08/04/17 15:40 Retic Count 0.8 % (0.5-1.5) 08/05/17 08:10 Haptoglobin 258.3 mg/dL (30.0-200.0) H 08/05/17 08:10 PT 14.8 Seconds (9.8-13.1) H 08/04/17 15:41 INR 1.3 (0.9-1.2) H 08/04/17 15:41 APTT 27.8 Seconds (25.6-37.1) 08/04/17 15:41 pO2 43 mm/Hg (30-55) 08/04/17 15:14 VBG pH 7.47 (7.32-7.43) H 08/04/17 15:14 VBG pCO2 32 mmHg (40-60) L 08/04/17 15:14 VBG HCO3 24.7 mmol/L 08/04/17 15:14 VBG Total CO2 24.3 mmol/L (22-28) 08/04/17 15:14 VBG O2 Sat (Calc) 84.7 % (40-65) H 08/04/17 15:14 VBG Base Excess 0.3 mmol/L (0.0-2.0) 08/04/17 15:14 VBG Potassium 3.3 mmol/L (3.6-5.2) L 08/04/17 15:14 Sodium 129.0 mmol/L (132-148) L 08/04/17 15:14 Chloride 97.0 mmol/L (98-107) L 08/04/17 15:14 Glucose 90 mg/dL (65-105) 08/04/17 15:14 Lactate 0.7 mmol/L (0.7-2.1) 08/04/17 15:14 FiO2 21.0 % 08/04/17 15:14 Sodium 141 mmol/l (132-148) 08/10/17 11:18 Potassium 4.0 MMOL/L (3.6-5.0) 08/10/17 11:18 Chloride 106 mmol/L (98-107) 08/10/17 11:18 Carbon Dioxide 22 mmol/L (22-30) 08/10/17 11:18 Anion Gap 17 (10-20) 08/10/17 11:18 BUN 6 mg/dl (7-17) L 08/10/17 11:18 Creatinine 0.6 mg/dl (0.7-1.2) L 08/10/17 11:18 Est GFR ( Amer) > 60 08/10/17 11:18 Est GFR (Non-Af Amer) > 60 08/10/17 11:18 Random Glucose 125 mg/dL (65-105) H 08/10/17 11:18 Calcium 8.6 mg/dL (8.4-10.2) 08/10/17 11:18 Phosphorus 4.2 mg/dl (2.5-4.5) 08/04/17 15:41 Magnesium 1.7 MG/DL (1.6-2.3) 08/04/17 15:41 Iron 13 ug/dL (37-170) L 08/05/17 05:00 TIBC 272 ug/dL (250-450) 08/05/17 05:00 % Saturation 5 % (20-55) L 08/05/17 05:00 Transferrin 193.97 mg/dL (206-381) L 08/05/17 05:00 Ferritin 79.7 ng/Ml (6.24-137.0) 08/05/17 05:00 Total Bilirubin 0.2 mg/dl (0.2-1.3) 08/09/17 07:55 AST 36 U/L (14-36) D 08/09/17 07:55 ALT 21 U/L (9-52) 08/09/17 07:55 Alkaline Phosphatase 58 U/L (38-126) 08/09/17 07:55 Lactate Dehydrogenase 359 U/L (313-618) 08/05/17 08:10 Total Protein 8.9 G/DL (6.3-8.2) H 08/09/17 07:55 Albumin 3.3 g/dL (3.5-5.0) L 08/09/17 07:55 Globulin 5.6 gm/dL (2.2-3.9) H 08/09/17 07:55 Albumin/Globulin Ratio 0.6 (1.0-2.1) L 08/09/17 07:55 Venous Blood Potassium 3.3 mmol/L (3.6-5.2) L 08/04/17 15:14 Urine Color Light yellow (YELLOW) 08/04/17 18:10 Urine Clarity Clear (Clear) 08/04/17 18:10 Urine pH 6.0 (5.0-8.0) 08/04/17 18:10 Ur Specific [place] < 1.005 (1.003-1.030) 08/04/17 18:10 Urine Protein Trace mg/dL (NEGATIVE) 08/04/17 18:10 Urine Glucose (UA) Negative mg/dL (Normal) 08/04/17 18:10 Urine Ketones Negative mg/dL (NEGATIVE) 08/04/17 18:10 Urine Blood Trace-intact (NEGATIVE) 08/04/17 18:10 Urine Nitrate Negative (NEGATIVE) 08/04/17 18:10 Urine Bilirubin Negative (NEGATIVE) 08/04/17 18:10 Urine Urobilinogen 0.2 mg/dL (0.2-1.0) 08/04/17 18:10 Ur Leukocyte Esterase Negative Yash/uL (Negative) 08/04/17 18:10 Urine RBC (Auto) 2 /hpf (0-3) 08/04/17 18:10 Urine Microscopic WBC 2 /hpf (0-5) 08/04/17 18:10 Ur Squamous Epith Cells 1 /hpf (0-5) 08/04/17 18:10 Ur Transition Epith Cell 0 /hpf (0-3) 08/04/17 18:10 Urine Bacteria Rare (<OCC) 08/04/17 18:10 Stool Occult Blood Negative (NEGATIVE) 08/10/17 21:42 Vancomycin Trough 6.8 ug/mL (5.0-10.0) 08/08/17 07:54 Serum Immunofixation Detected (Not Detected) H 08/05/17 14:30 Absolute Lymphs (Flow) 568 Cells/mcL (850-3900) L 08/06/17 05:10 % CD4 Cells 45 Percent (30-61) 08/06/17 05:10 Absolute CD4 Count 253 Cells/mcL (490-1740) L 08/06/17 05:10 T-Help/Suppress Ratio 1.01 Ratio (0.86-5.00) 08/06/17 05:10 % CD8 Cells 44 Percent (12-42) H 08/06/17 05:10 Absolute CD8 Count 252 Cells/mcL (180-1170) 08/06/17 05:10 T-Lymph Analys Comment See note 08/06/17 05:10 HIV-1 RNA copies/mL 616012 copies/mL (Not Detected) H 08/06/17 05:10 HIV-1 RNA logcopies/mL 5.31 (Not Detected) H 08/06/17 05:10 Influenza Typ A,B (EIA) Negative for flu a/b (NEGATIVE) 08/04/17 15:41 Ur L.pneumophila Ag Negative (NEGATIVE) 08/06/17 07:36 Mycoplasma pneumon IgG TNP 08/06/17 05:10 Mycoplasma pneumon IgM TNP 08/06/17 05:10 - Hospital Course Hospital Course: 47yo F wwith PMHx HIV and Depression admitted with B/l lower lobe PNA and sepsis. Pt stable on IV abx: Vanc, Zosyn, Azithromycin. Bcx neg x2, sputum cx: normal júnior; AFB neg x3. ID: : pt to d/c home on Levofloxacin 750 mg qDaily for 7 days. To f/u in outpatient with CXR. Pt had finding for faint M spike: IgG kappa monoclonal. Anemia: on po FeSol. Pt is scheduled to f/u with Dr. Fuentes on 08/17/2017. Discharge Exam - Head Exam Head Exam: ATRAUMATIC - Eye Exam Eye Exam: EOMI - Neck Exam Neck exam: Full Rom - Respiratory Exam Respiratory Exam: Clear to PA & Lateral, NORMAL BREATHING PATTERN. absent: Wheezes - Cardiovascular Exam Cardiovascular Exam: REGULAR RHYTHM, +S1, +S2 - GI/Abdominal Exam GI & Abdominal Exam: Normal Bowel Sounds, Soft. absent: Tenderness - Neurological Exam Neurological exam: Alert, CN II-XII Intact, Normal Gait, Oriented x3 - Psychiatric Exam Psychiatric exam: Normal Affect, Normal Mood Discharge Plan - Discharge Medications Prescriptions: Bacitracin/Neomycin/Polymyxin [Neosporin Antibiotic Oint] 1 applic TOP TID PRN 7 Days #1 tube PRN Reason: Other Benzonatate [Tessalon Perles] 100 mg PO TID PRN #30 sgl PRN Reason: Cough buPROPion SR [Wellbutrin SR 150 MG] 150 mg PO DAILY 30 Days #30 tab Calcium/Vitamin D [Oyster Shell Calcium/Vitamin D 500 mg-200 IU] 1 tab PO DAILY 30 Days #30 tab Ferrous Sulfate [Feosol] 325 mg PO BID #60 tab Fluticasone Propionate [Flonase] 2 spr FREIDA DAILY 30 Days #1 bottle Gabapentin [Neurontin] 100 mg PO TID 30 Days #90 cap Ibuprofen [Motrin Tab] 400 mg PO Q6 PRN #30 tab PRN Reason: Pain, Moderate (4-7) Lactobacillus Acidophilus [Bacid Acidophilus] 1 cap PO BID 30 Days #60 cap Levofloxacin [Levaquin] 750 mg PO DAILY 7 Days #7 tablet QUEtiapine [Seroquel] 100 mg PO HS 30 Days #30 tab - Follow Up Plan Condition: FAIR Disposition: HOME/ ROUTINE Instructions: Pneumonia, Adult (DC) Additional Instructions: Please follow up with Dr. Franklin and Dr. Hicks in 2-3 days Referrals: Bryn Ibrahim MD [Family Provider] -
== END 2017-08-11 16:35 | disposition home or self-care (01) | DRG 714 ==
LOC: H.ER 14:28 → H.ERHOLD 17:56 → H.TEL 22:45
PROVIDERS: ADMIT Family Medicine Geriatric Medicine; ATTEND Family Medicine Geriatric Medicine
PROC: 3E0234Z Introduction of Serum, Toxoid and Vaccine into Muscle, Percutaneous Approach (ICD-10-PCS; principal; 2017-08-05)
DX: A41.9 Sepsis, unspecified organism (principal); Z21 Asymptomatic human immunodeficiency virus [HIV] infection status; J18.9 Pneumonia, unspecified organism; E87.6 Hypokalemia; Z59.0 Homelessness; F17.210 Nicotine dependence, cigarettes, uncomplicated; Z23 Encounter for immunization; F32.9 Major depressive disorder, single episode, unspecified; F41.9 Anxiety disorder, unspecified; R73.03 Prediabetes; Z98.84 Bariatric surgery status; Z91.14 Patient's other noncompliance with medication regimen; Y95 Nosocomial condition; D50.9 Iron deficiency anemia, unspecified

== ENCOUNTER 2017-10-29 08:37 | Emergency (ER) | payer MEDICAID ==
[2017-10-29 08:40] VITALS: BMI 26.8
[2017-10-29 08:42] VITALS: BP 95/57; PULSE 85; RESP 20; TEMP 97.9
[2017-10-29 08:59] VITALS: O2SAT 98
--- NOTE | 2017-10-29 09:02 | ED PDOC ---
HPI: Female Pain Time Seen by Provider: 10/29/17 08:54 Chief Complaint (Nursing): Female Genitourinary Chief Complaint (Provider): Female Genitourinary History Per: Patient History/Exam Limitations: no limitations Onset/Duration Of Symptoms: Days (x5) Current Symptoms Are (Timing): Still Present Additional Complaint(s): 47 y/o female with a PMHx of HIV (taking medication) presenting for evaluation of a burning and itchy sensation in her vagina x5 days. Patient states she thinks it's a yeast infection. She denies any vaginal discharge, dysuria, fever , chills, headache, back pain, abdominal pain, nausea, vomiting, and diarrhea. PMD: None provided Past Medical History Reviewed: Historical Data, Nursing Documentation, Vital Signs Vital Signs: Last Vital Signs Temp 97.9 F 10/29/17 08:40 Pulse 85 10/29/17 08:40 Resp 20 10/29/17 08:40 BP 95/57 L 10/29/17 08:40 Pulse Ox 98 10/29/17 08:57 - Medical History PMH: Anxiety, Depression, Diabetes (improved w/ lap band), HIV (unmedicated x 10 months), Pneumonia Denies: Bipolar Disorder (denies), Hepatitis, HTN, Chronic Kidney Disease, Seizures, Sexually Transmitted Disease - Surgical History Surgical History: Cholecystectomy, (3) - Family History Family History: States: Unknown Family Hx - Immunization History Hx Tetanus Toxoid Vaccination: No Hx Influenza Vaccination: No Hx Pneumococcal Vaccination: No - Home Medications Home Medications: Ambulatory Orders Medication Instructions Recorded Bacitracin/Neomycin/Polymyxin 1 applic TOP TID PRN 7 Days #1 tube 08/02/17 [Neosporin Antibiotic Oint] Fluconazole [Diflucan] 100 mg PO DAILY #0 tab 08/02/17 Gabapentin [Neurontin] 100 mg PO TID 30 Days #90 cap 08/02/17 QUEtiapine [Seroquel] 100 mg PO HS 30 Days #30 tab 08/02/17 buPROPion SR [Wellbutrin SR 150 MG] 150 mg PO DAILY 30 Days #30 tab 08/02/17 Bacitracin/Neomycin/Polymyxin 1 applic TOP TID PRN 7 Days #1 tube 08/11/17 [Neosporin Antibiotic Oint] Benzonatate [Tessalon Perles] 100 mg PO TID PRN #30 sgl 08/11/17 Calcium/Vitamin D [Oyster Shell 1 tab PO DAILY 30 Days #30 tab 08/11/17 Calcium/Vitamin D 500 mg-200 IU] Ferrous Sulfate [Feosol] 325 mg PO BID #60 tab 08/11/17 Fluticasone Propionate [Flonase] 2 spr FREIDA DAILY 30 Days #1 bottle 08/11/17 Gabapentin [Neurontin] 100 mg PO TID 30 Days #90 cap 08/11/17 Ibuprofen [Motrin Tab] 400 mg PO Q6 PRN #30 tab 08/11/17 Lactobacillus Acidophilus [Bacid 1 cap PO BID 30 Days #60 cap 08/11/17 Acidophilus] Levofloxacin [Levaquin] 750 mg PO DAILY 7 Days #7 tablet 08/11/17 QUEtiapine [Seroquel] 100 mg PO HS 30 Days #30 tab 08/11/17 buPROPion SR [Wellbutrin SR 150 MG] 150 mg PO DAILY 30 Days #30 tab 08/11/17 Fluconazole [Diflucan] 150 mg PO DAILY #1 tab 10/29/17 - Allergies Allergies/Adverse Reactions: Allergies Allergy/AdvReac Type Severity Reaction Status Date / Time No Known Allergies Allergy Verified 08/04/17 14:29 Review of Systems ROS Statement: Except As Marked, All Systems Reviewed And Found Negative Constitutional: Negative for: Fever, Chills Gastrointestinal: Negative for: Nausea, Vomiting, Abdominal Pain, Diarrhea Genitourinary Female: Positive for: Other (vaginal itchy and burning sensation) . Negative for: Dysuria, Vaginal Discharge, Vaginal Bleeding Musculoskeletal: Negative for: Back Pain Neurological: Negative for: Headache Physical Exam - Reviewed Nursing Documentation Reviewed: Yes Vital Signs Reviewed: Yes - Physical Exam Appears: Positive for: Non-toxic, No Acute Distress Skin: Positive for: Normal Color. Negative for: Rash Eye Exam: Positive for: Normal appearance Neck: Positive for: Normal, Painless ROM, Supple Respiratory: Negative for: Respiratory Distress Gastrointestinal/Abdominal: Positive for: Normal Exam, Soft. Negative for: Tenderness Neurologic/Psych: Positive for: Alert, Oriented - ECG O2 Sat by Pulse Oximetry: 98 (RA) Pulse Ox Interpretation: Normal Medical Decision Making Medical Decision Making: Impression: UTI vs vaginitis Plan: -Urine -Urine dip -Urine C&S -Reevaluation Scribe Attestation: Documented by Shayan Ruiz, acting as a scribe for Sylvia Medellin MD. Provider Scribe Attestation: All medical record entries made by the Scribe were at my direction and personally dictated by me. I have reviewed the chart and agree that the record accurately reflects my personal performance of the history, physical exam, medical decision making, and the department course for this patient. I have also personally directed, reviewed, and agree with the discharge instructions and disposition. Disposition - Clinical Impression Clinical Impression: Vaginal itching - Patient ED Disposition Is Patient to be Admitted: No Doctor Will See Patient In The: Office Counseled Patient/Family Regarding: Diagnosis, Need For Followup, Rx Given - Disposition Referrals: Bryn Ibrahim MD [Family Provider] - Disposition: Routine/Home Disposition Time: 09:45 Condition: STABLE Prescriptions: Fluconazole [Diflucan] 150 mg PO DAILY #1 tab Instructions: Vaginal Discharge in Adults Forms: [facility] ([place]) - POA Present On Arrival: None
== END 2017-10-29 10:08 | disposition home or self-care (01) ==
LOC: H.ER 08:37
DX: N89.8 Other specified noninflammatory disorders of vagina (principal); E11.9 Type 2 diabetes mellitus without complications; F32.9 Major depressive disorder, single episode, unspecified; F41.9 Anxiety disorder, unspecified; B20 Human immunodeficiency virus [HIV] disease

== ENCOUNTER 2017-11-24 09:16 | Emergency (ER) | payer MEDICAID ==
[2017-11-24 09:18] VITALS: BMI 28.0
[2017-11-24 09:19] VITALS: BP 103/68; PULSE 81; RESP 17; TEMP 97.9; O2SAT 96
--- NOTE | 2017-11-24 10:50 | ED PDOC ---
HPI: Skin/Bite Injury Time Seen by Provider: 11/24/17 09:26 Chief Complaint (Nursing): Abnormal Skin Integrity Chief Complaint (Provider): Abnormal Skin Integrity History Per: Patient History/Exam Limitations: no limitations Onset/Duration Of Symptoms: Days (2) Additional Complaint(s): 47 years old female with history of HIV, depression and diabetes presents to the ED for evaluation of rash to the right arm onset 2 days. Associated symptoms include painful vesicular rash under axilla and under chest wall. Patient denies any fever, shortness of breath or chest pain. PMD: Bryn Ibrahim Past Medical History Reviewed: Historical Data, Nursing Documentation, Vital Signs Vital Signs: Last Vital Signs Temp 97.9 F 11/24/17 09:18 Pulse 81 11/24/17 09:18 Resp 17 11/24/17 09:18 BP 103/68 11/24/17 09:18 Pulse Ox 96 11/24/17 11:00 - Medical History PMH: Anxiety, Depression, Diabetes (improved w/ lap band), HIV (unmedicated x 10 months), Pneumonia Denies: Bipolar Disorder (denies), Hepatitis, HTN, Chronic Kidney Disease, Seizures, Sexually Transmitted Disease - Surgical History Surgical History: Cholecystectomy, (3) - Family History Family History: States: Unknown Family Hx - Social History Current smoker - smoking cessation education provided: Yes (Few cigarettes) Alcohol: None Drugs: Cannabis (as per record, but patient denies it.) - Immunization History Hx Tetanus Toxoid Vaccination: No Hx Influenza Vaccination: No Hx Pneumococcal Vaccination: No - Home Medications Home Medications: Ambulatory Orders Medication Instructions Recorded Bacitracin/Neomycin/Polymyxin 1 applic TOP TID PRN 7 Days #1 tube 08/02/17 [Neosporin Antibiotic Oint] Fluconazole [Diflucan] 100 mg PO DAILY #0 tab 08/02/17 Gabapentin [Neurontin] 100 mg PO TID 30 Days #90 cap 08/02/17 QUEtiapine [Seroquel] 100 mg PO HS 30 Days #30 tab 08/02/17 buPROPion SR [Wellbutrin SR 150 MG] 150 mg PO DAILY 30 Days #30 tab 08/02/17 Bacitracin/Neomycin/Polymyxin 1 applic TOP TID PRN 7 Days #1 tube 08/11/17 [Neosporin Antibiotic Oint] Benzonatate [Tessalon Perles] 100 mg PO TID PRN #30 sgl 08/11/17 Calcium/Vitamin D [Oyster Shell 1 tab PO DAILY 30 Days #30 tab 08/11/17 Calcium/Vitamin D 500 mg-200 IU] Ferrous Sulfate [Feosol] 325 mg PO BID #60 tab 08/11/17 Fluticasone Propionate [Flonase] 2 spr FREIDA DAILY 30 Days #1 bottle 08/11/17 Gabapentin [Neurontin] 100 mg PO TID 30 Days #90 cap 08/11/17 Ibuprofen [Motrin Tab] 400 mg PO Q6 PRN #30 tab 08/11/17 Lactobacillus Acidophilus [Bacid 1 cap PO BID 30 Days #60 cap 08/11/17 Acidophilus] Levofloxacin [Levaquin] 750 mg PO DAILY 7 Days #7 tablet 08/11/17 QUEtiapine [Seroquel] 100 mg PO HS 30 Days #30 tab 08/11/17 buPROPion SR [Wellbutrin SR 150 MG] 150 mg PO DAILY 30 Days #30 tab 08/11/17 Fluconazole [Diflucan] 150 mg PO DAILY #1 tab 10/29/17 Ibuprofen [Motrin] 600 mg PO Q6H PRN #20 tab 11/24/17 Valacyclovir HCl [Valtrex] 1 gm PO Q8H #21 tablet 11/24/17 - Allergies Allergies/Adverse Reactions: Allergies Allergy/AdvReac Type Severity Reaction Status Date / Time No Known Allergies Allergy Verified 11/24/17 09:44 Review of Systems ROS Statement: Except As Marked, All Systems Reviewed And Found Negative Constitutional: Negative for: Fever Cardiovascular: Negative for: Chest Pain Respiratory: Negative for: Shortness of Breath Skin: Positive for: Rash (Right arm, under the axilla and chest wall) Physical Exam - Reviewed Nursing Documentation Reviewed: Yes Vital Signs Reviewed: Yes - Physical Exam Appears: Positive for: Non-toxic, No Acute Distress Head Exam: Positive for: ATRAUMATIC, NORMAL INSPECTION, NORMOCEPHALIC Skin: Positive for: Rash (vesicular rash crust on chest wall under right axilla. ) Eye Exam: Positive for: Normal appearance, EOMI, PERRL ENT: Positive for: Normal ENT Inspection Neck: Positive for: Normal, Painless ROM, Supple Cardiovascular/Chest: Positive for: Regular Rate, Rhythm. Negative for: Murmur Respiratory: Positive for: Normal Breath Sounds. Negative for: Respiratory Distress Gastrointestinal/Abdominal: Positive for: Normal Exam, Soft. Negative for: Tenderness Back: Positive for: Normal Inspection. Negative for: L CVA Tenderness, R CVA Tenderness Extremity: Positive for: Normal ROM. Negative for: Tenderness, Pedal Edema Neurologic/Psych: Positive for: Alert, Oriented - ECG O2 Sat by Pulse Oximetry: 96 (RA) Pulse Ox Interpretation: Normal Medical Decision Making Medical Decision Making: Time: 947 Initial Impression: Shingles Initial Plan: --Motrin 600 mg PO --Tylenol 325 mg PO 1030 Discussed with patient her natural progression. Patient is prescribed Valtrex, instructed to stay away from and immunocompromised people and to follow up with her PMD in 2-3 days. ----- Scribe Attestation: Documented by Kimber Bowman, acting as a scribe for Rebeca Ravi MD. Provider Scribe Attestation: All medical record entries made by the Scribe were at my direction and personally dictated by me. I have reviewed the chart and agree that the record accurately reflects my personal performance of the history, physical exam, medical decision making, and the department course for this patient. I have also personally directed, reviewed, and agree with the discharge instructions and disposition. Disposition - Clinical Impression Clinical Impression: Shingles - Disposition Disposition: Routine/Home Disposition Time: 10:30 Condition: IMPROVED Additional Instructions: follow up with your primary doctor in 2 days for reevaluation return to the ED with any worsening or concerning symptoms Prescriptions: Ibuprofen [Motrin] 600 mg PO Q6H PRN #20 tab PRN Reason: Pain, Moderate (4-7) Valacyclovir HCl [Valtrex] 1 gm PO Q8H #21 tablet Instructions: Prasanth (DC) Forms: [employer] ([place]akh)
== END 2017-11-24 10:27 | disposition home or self-care (01) ==
LOC: H.ER 09:16
DX: B02.9 Zoster without complications (principal); E11.9 Type 2 diabetes mellitus without complications; Z21 Asymptomatic human immunodeficiency virus [HIV] infection status

== ENCOUNTER 2018-09-20 10:09 | Emergency (ER) | payer MEDICAID, SELFPAY ==
[2018-09-20 10:15] VITALS: BMI 32.3
--- NOTE | 2018-09-20 11:05 | ED PDOC ---
HPI: Chest Pain Time Seen by Provider: 09/20/18 10:31 Chief Complaint (Nursing): Chest Pain Chief Complaint (Provider): chest "vibrations" History Per: Patient History/Exam Limitations: no limitations Onset/Duration Of Symptoms: Days (1-2), Gradual Current Symptoms Are (Timing): Intermittent Episodes Severity: Mild Quality: Other ("vibrations") Additional Complaint(s): 48yo female hx HIV with undetectable VL, presents c/o having a "cold" symptoms along with substernal chest pain described as "vibrations", denies fever, SOB, syncope, orthopnea, hemoptysis or weakness. Had pneumonia before, wants to assure it hasnt reoccurred. Past Medical History Reviewed: Historical Data, Nursing Documentation, Vital Signs Vital Signs: Last Vital Signs Temp 98.5 F 09/20/18 10:15 Pulse 89 09/20/18 10:16 Resp 16 09/20/18 10:15 BP 108/71 09/20/18 10:15 Pulse Ox 95 09/20/18 10:15 Primary Care Provider: Non [facility] Provider, - Medical History PMH: Anxiety, Depression, Diabetes (improved w/ lap band), HIV (unmedicated x 10 months), Pneumonia Denies: Bipolar Disorder (denies), Hepatitis, HTN, Chronic Kidney Disease, Seizures, Sexually Transmitted Disease - Surgical History Surgical History: Cholecystectomy, (3) - Family History Family History: States: Unknown Family Hx - Immunization History Hx Tetanus Toxoid Vaccination: No Hx Influenza Vaccination: No Hx Pneumococcal Vaccination: No - Home Medications Home Medications: Ambulatory Orders Medication Instructions Recorded Bacitracin/Neomycin/Polymyxin 1 applic TOP TID PRN 7 Days #1 tube 08/11/17 [Neosporin Antibiotic Oint] Benzonatate [Tessalon Perles] 100 mg PO TID PRN #30 sgl 08/11/17 Calcium/Vitamin D [Oyster Shell 1 tab PO DAILY 30 Days #30 tab 08/11/17 Calcium/Vitamin D 500 mg-200 IU] Ferrous Sulfate [Feosol] 325 mg PO BID #60 tab 08/11/17 Fluticasone Propionate [Flonase] 2 spr FREIDA DAILY 30 Days #1 bottle 08/11/17 Gabapentin [Neurontin] 100 mg PO TID 30 Days #90 cap 08/11/17 Ibuprofen [Motrin Tab] 400 mg PO Q6 PRN #30 tab 08/11/17 QUEtiapine [Seroquel] 100 mg PO HS 30 Days #30 tab 08/11/17 buPROPion SR [Wellbutrin SR 150 MG] 150 mg PO DAILY 30 Days #30 tab 08/11/17 Azithromycin [Zithromax] 250 mg PO DAILY #6 tab 09/20/18 guaiFENesin [guaifENESIN] 100 mg PO Q4 PRN #100 ml 09/20/18 - Allergies Allergies/Adverse Reactions: Allergies Allergy/AdvReac Type Severity Reaction Status Date / Time No Known Allergies Allergy Verified 11/24/17 09:44 Review of Systems ROS Statement: Except As Marked, All Systems Reviewed And Found Negative Constitutional: Negative for: Fever ENT: Negative for: Ear Pain Cardiovascular: Positive for: Chest Pain, Palpitations Respiratory: Negative for: Cough Gastrointestinal: Negative for: Abdominal Pain Genitourinary Female: Negative for: Dysuria Musculoskeletal: Negative for: Neck Pain Skin: Negative for: Rash Neurological: Negative for: Weakness, Numbness Physical Exam - Reviewed Nursing Documentation Reviewed: Yes Vital Signs Reviewed: Yes - Physical Exam Appears: Positive for: Non-toxic Head Exam: Positive for: ATRAUMATIC, NORMAL INSPECTION, NORMOCEPHALIC Skin: Positive for: Normal Color, Warm, DRY Eye Exam: Positive for: EOMI, Normal appearance, PERRL ENT: Positive for: Normal ENT Inspection Neck: Positive for: Normal, Painless ROM Cardiovascular/Chest: Positive for: Regular Rate, Rhythm Respiratory: Positive for: CNT, Normal Breath Sounds Gastrointestinal/Abdominal: Positive for: Normal Exam, Soft Back: Positive for: Normal Inspection Extremity: Positive for: Normal ROM Neurological/Psych: Positive for: Awake, Alert, Normal Tone - Laboratory Results Result Diagrams: 09/20/18 10:40 09/20/18 10:40 - ECG ECG: Positive for: Interpreted By Me ECG Rhythm: Positive for: Normal QRS, Normal ST Segment, Sinus Rhythm Rate: 89 O2 Sat by Pulse Oximetry: 95 Pulse Ox Interpretation: Normal Medical Decision Making Medical Decision Making: imaging and labs reviewed. CXR improved from prior film. Given hx of pneumonia and HIV, cover with Azithromycin. communicated w PMD Dr Fuentes, will followup later this week Improved over course of ED stay, no evidence resp failure. Stable for outpatient treatment at time of discharge. Disposition - Clinical Impression Clinical Impression: Bronchitis, HIV (human immunodeficiency virus infection) - Patient ED Disposition Is Patient to be Admitted: No Counseled Patient/Family Regarding: Studies Performed, Diagnosis, Need For Followup, Rx Given - Disposition Referrals: Comfort Fuentes MD [Family Provider] - Disposition: Routine/Home Disposition Time: 15:01 Condition: STABLE Additional Instructions: Followup with Dr Fuentes this week, return to ER for any difficulty breathing, fever, blood in sputum, or any concern. Take antibiotic as directed. Drink plenty of fluids. Use Robitussin for cough as directed. Prescriptions: Azithromycin [Zithromax] 250 mg PO DAILY #6 tab guaiFENesin [guaifENESIN] 100 mg PO Q4 PRN #100 ml PRN Reason: Cough Instructions: Acute Bronchitis Forms: [facility] (Turkmen)
[2018-09-20 11:13] LABS: BASO # 0.1 K/uL (0.0-0.2); BASO % 1.5 % (0.0-2.0); EOS # 0.1 K/uL (0.0-0.7); EOS % 1.5 % (0.0-4.0); LYMPH # 1.6 K/uL (1.0-4.3); LYMPH % 24.5 % (20.0-40.0); MEAN CELL VOLUME 81.4 fl (81.0-99.0); MEAN CORPUSCULAR HEMOGLOBIN 25.8 pg (27.0-31.0); MEAN CORPUSCULAR HGB CONC 31.7 g/dL (33.0-37.0); MEAN PLATELET VOLUME 8.1 fl (7.2-11.7); MONO # 0.6 K/uL (0.0-0.8); MONO % 9.6 % (0.0-10.0); NEUT # 4.2 K/uL (1.8-7.0); NEUT % 62.9 % (50.0-75.0); RBC 4.65 Mil/uL (3.80-5.20); RED CELL DISTRIBUTION WIDTH 14.8 % (11.5-14.5); WHITE BLOOD COUNT 6.7 K/uL (4.8-10.8)
[2018-09-20 11:30] LABS: B-TYPE NATRIURETIC PEPTIDE 35.6 pg/ml (0-450)
[2018-09-20 11:43] LABS: ALBUMIN 4.6 g/dL (3.5-5.0); ALT/SGPT 23 U/L (9-52); AST/SGOT 29 U/L (14-36); BLOOD UREA NITROGEN 13 mg/dl (7-17); CALCIUM 9.1 mg/dL (8.4-10.2); GFR NON-AFRICAN AMERICAN > 60
--- NOTE | 2018-09-20 12:35 | RAD ---
Date of service: 09/20/2018 HISTORY: HIV cough COMPARISON: 08/04/2017. TECHNIQUE: Chest PA and lateral views FINDINGS: LUNGS: No active pulmonary disease. Resolution of previously seen lower lobe infiltrates. PLEURA: No significant pleural effusion identified. No pneumothorax apparent. CARDIOVASCULAR: No aortic atherosclerotic calcification present. Normal cardiac size. No pulmonary vascular congestion. OSSEOUS STRUCTURES: No significant abnormalities. VISUALIZED UPPER ABDOMEN: Normal. OTHER FINDINGS: None. IMPRESSION: Resolution of lower lobe infiltrates, residual interstitial changes/scarring would be categorized as minor. Concordant results with the preliminary interpretation rendered by the emergency department physician procedure.
[2018-09-20 16:34] VITALS: BP 128/74; RESP 18; TEMP 98.3
--- NOTE | 2018-09-21 17:59 | CARD ---
APPROVED REPORT Date of service: 09/20/2018 EKG Measurement Heart [id number] <Conclusion> Normal sinus rhythm Normal ECG
[2018-09-23 15:42] VITALS: PULSE 89; O2SAT 95
== END 2018-09-20 16:24 | disposition home or self-care (01) ==
LOC: H.ER 10:09
DX: J40 Bronchitis, not specified as acute or chronic (principal); B20 Human immunodeficiency virus [HIV] disease; E11.9 Type 2 diabetes mellitus without complications; Z86.59 Personal history of other mental and behavioral disorders
CPT/HCPCS: 71046; 80053; 81025; 83880; 84484; 85025; 93005; 96374; 99285; J2930